=== PATIENT | male | born 1975 | race Caucasian/White ===

== ENCOUNTER 2024-10-28 09:53 | Outpatient (AMB) | payer BC, SELFPAY ==
[2024-10-28 09:58] VITALS: BP 120/80; PULSE 81; BMI 45.2
--- NOTE | 2024-10-28 09:58 | MHC.OFFVIS ---
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 He is a 49-year-old male who has recently gained significant amount of weight as his job has become more sedentary. 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 He said he sleeps poorly. He is fatigued all the time and has daytime somnolence. Has been suggested that he might have sleep apnea although he has not had any workup. However with a lot of increased stress recently he has been noticing some symptoms of shortness of breath associated with retrosternal chest pressure which had do concerned and he has been referred for further cardiology evaluation. He denies any prolonged palpitation irregular heartbeat. Denies any orthopnea, PND, leg edema. He said he is otherwise healthy. He has had no significant other problems. His father had a HI and a stroke in his 60s. [facility] Medical History (Updated 10/28/24 @ 10:31 by Bart Painting MD) Morbid obesity Surgical History H/O knee surgery Family History Father Heart attack Stroke High blood pressure Mother Cancer Social History Alcohol intake: never Patient Tobacco Use Status: Never used Tobacco Review of Systems Const Denies weakness ENT Denies dizziness Card Reports chest pain, Denies chest pain with activity, Denies syncope, Denies rapid heart rate, Denies pedal edema, Denies edema, Denies leg edema, Denies lightheadedness, Denies palpitations, Reports dyspnea, Denies dyspnea on exertion and Denies orthopnea Resp Denies cough, Reports dyspnea and Denies dyspnea on exertion GI Denies hematochezia and Denies change in stool character Musc Denies abnormal gait, Denies muscle cramps, Denies muscle weakness, Denies numbness, Denies radiating pain into limb and Denies tingling Neuro Denies abnormal gait, Denies dizziness, Denies syncope, Denies numbness, Denies tingling and Denies weakness Endo Denies palpitations Physical Exam Vital Signs: Last Vital Signs Pulse 81 10/28/24 09:58 BP 120/80 10/28/24 09:58 BMI result Body Mass Index 45.2 Const General: cooperative, comfortable, no acute distress, alert, awake, Physically active, tired appearing and well groomed Nutritional Appearance: overweight Orientation/consciousness: patient oriented x3 Limitations: no limitations HEENT Head: Yes normocephalic and Yes atraumatic Neck Neck: Yes trachea midline, Yes supple and Yes no JVD Resp Effort & Inspection: normal respiratory effort Auscultation: clear to auscultation bilaterally Cardio Jugular venous distension: no JVD Palpation: normal PMI Rate: regular rate Rhythm: regular rhythm Heart sounds: S1 normal heart sound present, S2 normal heart sound present, no click, no gallops, no murmurs and no rubs GI Auscultation: normal bowel sounds Skin General skin exam: no rashes or lesions noted Neuro General: patient oriented x3 and no focal motor deficits Extrem General: Yes no clubbing, cyanosis or edema Psych Appearance: grossly normal Office Procedures EKG Details: EKG shows normal sinus rhythm with normal EKG [id number], Complete Assessment & Plan Assessment & Plan (1) Chest pain: Code(s): R07.9 - Chest pain, unspecified Category: Medical Plan: Patient with recent onset symptoms of stress-induced chest pain shortness of breath is likely probably related to increased stress although myocardial ischemia needs to be ruled out given his risk factors of obesity and family history. I would strongly recommend him to undergo a treadmill stress test in the near future to evaluate for myocardial ischemia and exercise capacity. This will be scheduled in near future as soon as possible. Also suggest an echocardiogram to evaluate for LV systolic and diastolic function more importantly to evaluate for RV size and systolic function as well as RV systolic pressure that may also contribute to his chest pain syndrome. These tests will be scheduled in near future further treatment based on finding. If these tests are reasonably within normal limits, should pursue coronary calcium score to evaluate for coronary atherosclerosis that will guide treatment for the future. Will obtain blood work from your office. (2) Morbid obesity: Code(s): E66.01 - Morbid (severe) obesity due to excess calories Category: Medical Plan: Patient has developed significant weight gain since his job change to more sedentary job. Recommend strongly to participate in weight loss program that should help him significantly to reduce future cardiovascular and metabolic risk. He understands and agrees. He said he is trying to figure out how to do it. Consider GLP 1 antagonist such as Ozempic or Wegovy (3) Witnessed apneic spells: Code(s): R06.81 - Apnea, not elsewhere classified Plan: Patient with significant likelihood of obstructive sleep apnea, given his body habitus as well as daytime somnolence as well as witnessed apneic episode. Will suggest him to have home sleep study done as soon as possible. Further treatment based on the findings and referrals as possible. Will follow up in the clinic in 6 weeks time, sooner p.r.n.. Thank you for allowing me to partake in his care Coding Level of Care Code New Pt Level 4 (59659) Complex EM visit Add On G2211 Diagnoses Chest pain R07.9 Morbid obesity E66.01 Witnessed apneic spells R06.81 CPT Codes EKG - CPT: 62994-[id number], Complete ([id number])
== END 2024-10-28 10:28 | disposition home or self-care (01) ==
PROVIDERS: PCP Internal Medicine; Visit Provider Internal Medicine Cardiovascular Disease
DX: R07.9 Chest pain, unspecified (principal); E66.01 Morbid (severe) obesity due to excess calories; R06.81 Apnea, not elsewhere classified
CPT/HCPCS: 93010; 99204

== ENCOUNTER → 2024-10-28 09:53 | Outpatient (BNVA) | payer BC, SELFPAY | PROVIDERS: PCP Internal Medicine; Visit Provider Internal Medicine Cardiovascular Disease | DX: R07.89 Other chest pain (principal); E66.01 Morbid (severe) obesity due to excess calories; Z68.42 Body mass index [BMI] 45.0-49.9, adult; R06.81 Apnea, not elsewhere classified | CPT/HCPCS: 93005 ==

== ENCOUNTER → 2024-11-16 08:16 | Outpatient (BNV) | payer OTHER, SELFPAY | DX: I42.2 Other hypertrophic cardiomyopathy (principal); R06.02 Shortness of breath; I49.3 Ventricular premature depolarization | CPT/HCPCS: 93016; 93018; 93320; 93350; 93352 ==

== ENCOUNTER → 2024-12-15 12:57 | Outpatient (REF) | payer OTHER, SELFPAY ==
--- OUTSIDE RECORDS SUMMARY | 2024-12-15 16:01 | XMS_ITS | Encounter Summary ---
Author Organization [facility] Address [address] [place] [address] Care Team Providers Care Relationship Advisor Name Role Phone Magda Rivas MD Primary Care Provider [phone] Reason for Visit * Reason Onset Date Comments Special Procedure 11/20/2024 Encounter Details Date Type Department Care Team (Late st Contact Info) Description 11/20/2024 Telephone Gastroenterology - [facility] [address] [place] [id number] Amy Watson MD [address] [place] [address] Special Procedure Social History Tobacco Use Types Packs/Day Years Used Date Smoking Tobacco: Never Assessed Sex and Gender Information Value Date Recorded Sex Assigned at Not on file Legal Sex Male 11:28 AM EST Gender Identity Not on file Sexual Orientation Not on file documented as of this encounter Progress Notes * Janae Gomez MA - 11/20/2024 1:09 PM EST RESCHEDULED * Smitha Rosas - 11/20/2024 12:16 PM EST Patient calling back to reschedule colonoscopy * Ninoska Maciel MA - 11/20/2024 11:44 AM EST Left message to reschedule * Smitha Rosas - 11/20/2024 9:44 AM EST Patient calling to reschedule colonoscopy due to not being able to do prep. documented in this encounter Plan of Treatment Upcoming Encounters Date Type Department Care Team (Late st Contact Info) Description 03/25/2025 12:[address] [facility] [address] [place] [id number] Amy Watson MD [address] [address] documented as of this encounter Visit Diagnoses Not on filedocumented in this encounter Care Teams Relationship Advisor Relationship Specialty Start Date End Date Magda Rivas MD PCP - General 11/06/23 documented as of this encounter
--- OUTSIDE RECORDS SUMMARY | 2024-12-15 16:02 | XMS_ITS ---
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 Name Role Phone Magda Rivas Primary Care Provider UnavailJoe Bledsoemie Unavailable [phone] Allergies No Known Allergies Results Component Value Reference Range Notes X ray : Foot, right 3V Reviewed date:01/08/2024 01:06:28 PM Interpretation:See Examination above Performing Lab: Notes/Report: See Examination above REASON FOR VISIT pt states last pcp visit 10/2023, Heel pain, Foot pain, Skin Problem, Painful nail(s) aggrevated byshoes causing difficulty standing/walking Medications Medication SIG (Take, Route, Frequency, Duration) Notes Start Date End Date Status Night Splint AFO - L1930 1 wear when at rest for 30 days Active Ciclopirox Olamine 0.77 % 1 application Externally Twice a day for 30 days Active Social History Tobacco Use: Social History Observation Description Date Details (start date - stop date) Never Smoker NA - NA Tobacco Use/Smoking Question Answer Notes Are you a: nonsmoker Alcohol Screen Question Answer Notes Did you have a drink containing alcohol in the p ast year? No Points 0 Interpretation Negative Tobacco use other than smoking: Question Answer Notes Are you an other tobacco user? 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 Problem Mononeuropathy of lower limb (303732757) Neuritis of left foot (G57.92) Active confirmed Vital Signs Height 5 ft 6 in in 01/08/2024 Weight 280 lbs 01/08/2024 BMI 45.19 kg/m2 01/08/2024 Encounters Encounter Location Date Provider Diagnosis [facility] [address] [place] [address] 01/08/2024 Yaritza Cordero Achilles tendinitis of right lower extremity M76.61 ; Pain of right heel M79.671 ; 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 ; Short Achilles tendon (acquired), 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 ; Pain in left foot M79.672 ; Neuritis of left foot G57.92 ; Tinea pedis of both feet B35.3 ; Tinea unguium B35.1 ; Pain in right toe(s) M79.674 and Pain in left toe(s) M79.675 Assessments Encounter Date Diagnosis (ICD Code) Assessment Notes Treatment Notes Treatment Clinical Notes Section Notes 01/08/2024 Achilles tendinitis of right lower extremity (ICD-10 - M76.61) Patient Educated with: HEEL CORD STRETCHES.pdf (HEEL CORD STRETCHES.pdf) Patient Educated with: RICE THERAPY.pdf (RICE THERAPY.pdf) 01/08/2024 Pain of right heel (ICD-10 - M79.671) 01/08/2024 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) 01/08/2024 Short Achilles tendon (acquired), 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) 01/08/2024 Pain in left foot (ICD-10 - M79.672) 01/08/2024 Neuritis of left foot (ICD-10 - G57.92) 01/08/2024 Tinea pedis of both feet (ICD-10 - B35.3) 01/08/2024 Tinea unguium (ICD-10 - B35.1) 01/08/2024 Pain in right toe(s) (ICD-10 - M79.674) 01/08/2024 Pain in left toe(s) (ICD-10 - M79.675) Plan Of Treatment Medication Medication Name Sig Start Date Stop Date Notes Night Splint AFO - L1930 1 wear when at rest for 30 days Ciclopirox Olamine 0.77 % 1 application Externally Twice a day for 30 days Treatment Notes Assessment Notes Achilles tendinitis of right lower extre mity Patient Educated with: HEEL CORD STRETCHES.pdf (HEEL CORD STRETCHES.pdf) Patient Educated with: RICE THERAPY.pdf (RICE THERAPY.pdf) Pending Test Test Name Order Date *Liver Function Test (LFT) 01/08/2024 Next Appt Details Follow Up: 6 Weeks, Reason: Progress Notes * Ruby BURGEROB: [birth year] (48 yo M)Acc No.[id number]:01/08/2024 Progress Notes Patient:?Gamaliel Burger Provider:?Yaritza Cordero DPM :1975???Age:48 Y???Sex:Male Luis e:01/08/2024 Address:[facility] [address], [facility] Pcp:Magda Rivas Subjective: * Chief Complaints: * ???Pt states last pcp visit 10/2023Heel painFoot painSkin ProblemPainful nail(s) aggrevated by shoes causing difficulty standing/walking * HPI: ???Heel pain:?Location:?Back of heel, RIGHT.?Duration:?several months.?Course:?worse.?Aggrevated:?standing, walking, walking first thing in the morning/after rest.?Treatments:?rest/alter normal daily activity.?Foot Pain:?Nature:?, numbness.?Location:?Bottom , B/L.?Duration:?several months.?Onset:?unknown.?Course:?worse.?Aggrevated:?any pressure.?Treatments:?rest/alter normal daily activity.?Skin problems:?Nature:?scaling , redness.?Location:?B/L .?Duration:?several days.?Course:?worse.?Painful Nails:?Pt States Last PCP Visit:?Date:?10/15/2023 * ROS:?General/Constitutional:?Nausea?denies.?Vomiting?denies.?Hunger Thirst?denies.?Loss appetite?denies.?Chills?denies.?Fatigue?denies.?Fever?denies.?Night Sweats?denies.?Unexplained weight loss?denies.?Unexplained weight gain?denies.?HEENTM:?Dentures?denies.?Dizziness?denies.?Glasses/contacts?denies.?Retinopathy?de nies.?Blurred/double vision?denies.?TMJ?denies.?Discharge/drainage?denies.?Implants?denies.?Sore throat?denies.?Dental implants?denies.?Hard of hearing ?denies.?Difficulty chewing/swallowing/speaking?denies.?Nose bleeds?denies.?Sore mouth?denies.?Respiratory:?On Oxygen?denies.?Pneumonia/pleurisy?denies.?Bronchitis?denies.?Emphysema?denies.?C oughing?denies.?Cough blood?denies.?Shortness of breath?denies.?Wheezing?denies.?Cardiovascular:?Pacemaker?denies.?MVP?denies.?WPW?denies.?CHF?denies.?Heart attack?denies.?Septal defect?denies.?Rapid beat?denies.?Chest pain ?denies.?Atrial Fib.?denies.?Murmur/Palpitations?denies.?Gastrointestinal:?Hemorrhoids?denies.?Stomach/Abdominal pain?denies.?Dark blood stool?denies.?Irritable bowel ?denies.?Constipation?denies.?Diarrhea?denies.?Hematology:?Swelling?denies.?Clots?denies.?Varicose Veins?denies.?Bruising?denies.?Bleeding problem?denies.?Genitourinary:?Blood urine?denies.?Frequent/Painfu/urination/bladder control?denies.?Kidney stones?denies.?Infection (UTI)?denies.?Nephropathy?denies.?sex trans dis (STD)?denies.?Prostate?denies.?Musculoskeletal:?Hammertoes?denies.?Bunions?denies.?Back Pain?denies.?Muscle Cramps/ Resting?denies.?Muscle cramps / walking?denies.?Generalized aches and pains?denies.?Weakness?denies.?Integ.:?Ku?denies.?Scars?denies.?Corns/calluses?denies.?Ingrown nails?denies.?Painful nails?denies.?Open Sores?denies.?Rashes?denies.?Neurologic:?Difficulty sleeping?denies.?Brain disorder?denies.?Numbness?denies.?Balance trouble?denies.?Confusion?denies.?Fainting/blackouts?denies.?Tingling?denies.?Tr emors?denies.? * Medical History:? * Surgical History:?knee surge ry, left 1992knee surgery, right 2019 * Hospitalization/Major Diagno stic Procedure:?No Hospitalization History. * Family History:?Mother: rex hernandes.?Father: alive.? * Social History:?Tobacco Use:?Tobacco Use/Smoking?Are you a:?nonsmoker ?Tobacco use other than smoking?Are you an other tobacco user??No ???Drugs/Alcohol:?Drugs?Have you used drugs other than those for medical reasons in the past 12 months??No ?Alcohol Screen?Did you have a drink containing alcohol in the past year??No ?Points?0 ?Interpretation?Negative ???Miscellaneous:?Caffeine: yes, frequency:, more than 4 cups per day. ?no Exercise. ?Marital status: . 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 * Medications:?None * Allergies:?N.K.D.A.yes[Aller gies Verified] Objective: * Vitals:?Ht: 5 ft 6 in, Wt:28 0, BMI:45.19, Shoe size: 9.5, Ht-cm: 167.64 cm, Wt- k.01 kg. * Examination: ???General Examination: ?GENERAL APPEARANCE:?Reveals a pleasant, alert, well nourished, well- developed, well hydrated individual, who demonstrates proper attention to hygiene/body habitus, and is in no acute distress, Pt serves as own historian for office visit today.?ORIENTED:?person, place, and time.?Neurological: ?SENSORY:?Neurological exam reveals intact sensorium, pain sensation normal, vibration sensation intact, pinprick sensation is normal in the lower extremities, Pt denies, anesthesia, burning, paresthesia, tingling, B/L.?TINEL'S COMPRESSION:? Positive, Medial dorsal cutaneous nerve distribution, Intermediate dorsal cutaneous nerve distribution, Left.?DEEP TENDON REFLEXES:?Deferred on symptomatic extremity due to discomfort.?Neuroma Pain: ?PALPATION:?No interspace pain noted on palpation.?Dermatologic: ?SKIN FINDINGS:? Skin shows sign(s) of, erythema, scaling, in a moccasin fashion, no fissure(s) present, B/L.?Orthopedic: ?MUSCLE STRENGTH:?5/5 all groups in a symmetrical fashion, B/L.?GAIT ABNORMALITY:?antalgic.?FOOT MORPHOLOGY:? Decreased Ankle joint dorsiflexion ROM, knee extended.?DIGITAL DEFORMITIES:?Digital contracture, PIPJ, 2-5 B/L, incompl-reducible with WB, or to push-up test, no over, nor underlapping.?Nails: ?NAILS are:?Elongated, overgrown, dystrophic, lytic, greater than 3mm thick, discolored and friable with crumbly malodorous subungual debris, with pain on palpation , 1-5 B/L.?Heel Pain: ?INSPECTION REVEALS:? Pain on palpation to Achilles tendon/bursa with inflammation and swelling present, Pain on palpation to Posterior Superior Aspect Calcaneus, Prominent posterior and posterior/superior heel present, RIGHT.?X-Rays - IMAGING REPORT: ?Clinical Indication(s):? Evaluate for Fracture, Evaluate Biomechanical Deformity , Evaluate Biomechanical Deformity , Evaluate for Fracture.?Views:? 3 views of Foot, LAT, CALC, MO, RIGHT .?Findings:?normal bone and soft tissue density consistent for patients age and sex , positive retro-calcaneal exostosis , increase in soft tissue contour and density at the symptomatic site , radiolucent soft tissue gas absent.?Fracture:?Negative fractures identified , Negative fractures identified.? Assessment: * Assessment: 1.?Pain of right heel - M79. 671?2.?Achilles tendinitis of right lower extremity - M76.61, Acute problem, Complicated w/ Multiple Tx Options(4),Dx New problem, Prognosis Uncertain (4) 3.?Exostosis of right posterior calcaneus - M77.31?4.?Short Achilles tendon (acquired), right ankle - M67.01?5.?Pain in left foot - M79.672?6.?Neuritis of left foot - G57.92, Acute problem, Complicated w/ Multiple Tx Options(4),Dx New problem, Prognosis Uncertain (4)?7.?Tinea pedis of both feet - B35.3, Acute problem, Uncomplicated (3),Rx drug management (4)?8.?Tinea unguium - B35.1?9.?Pain in right toe(s) - M79.674?10.?Pain in left toe(s) - M79.675? Plan: * Treatment: 2.?Achilles tendinitis of ri [facility] lower extremity? Start Night Splint AFO - L1930, 1, wear, when at rest, 30 days, Refills 0.?? Notes: Patient Educated with: HEEL CORD STRETCHES.pdf (HEEL CORD STRETCHES.pdf) Patient Educated with: RICE THERAPY.pdf (RICE THERAPY.pdf)?? 3.?Tinea pedis of both feet? Start Ciclopirox Olamine Cream, 0.77 %, 1 application, Externally, Twice a day, 30 days, 60, Refills 2.?? 4.?Tinea unguium?LAB: *Liver Function Test (LFT) * Procedure Codes:?37558 X-RAY EXAM OF RIGHT FOOT 3V, Modifiers: 26 , RT * Preventive Medicine:? ??Counseling:?Discussion:?-04: Office or other outpatient visit for the evaluation and management of a new patient, which required a medically appropriate history and/or examination and MODERATE level of DECISION MAKING for: 1 OR MORE CHRONIC PROBLEM(S) THATS WORSENING, 2 STABLE CHRONIC PROBLEMS, A NEWLY DIAGNOSED PROBLEM WITH UNCERTAIN PROGNOSIS, AN ACUTE COMPLICATED INJURY WITH MULTIPLE TREATMENT OPTIONS, OR AN ACUTE PROBLEM WITH ACCOMPANYING SYSTEMIC SYMPTOMS, THAT POSE(S) A MODERATE RISK OF MORBIDITY. THIS CONDITION MAY ALSO INCLUDE RX DRUG MANAGEMENT, OR A DECISON FOR MINOR SURGERY. The visit on the day of the encounter encompassed interpreting the data and educating the patient as to the nature of their condition, treatment options available according to their individual PMH, meds, allergies, and overall health/living conditions, as well as any potential risks or complications that may occur from a failure to adhere to, and participate in, the recommended course of therapy. The discussion included a complete verbal, and/or written explanation of the examination results, any x-rays taken, the proposed diagnosis, and outline of the treatment plan. A schedule for future care needs was also explained. The patient verbalized an understanding of the instructions at this time and agreed to be an active participant in their treatment. If the patient should think of any questions or concerns after the visit, I have encouraged the patient to call the office.?Fungal Nail Counseling:?The patient was counseled on the diagnosis, potential etiologies (including, but not limited to, environmental factors, genetic, immune deficiency), and the multiple treatment options for Onychomycosis. We discussed the risks and benefits of each option from performing no treatment, to ultraviolet light shoe treatment, to laser nail treatment, to applying topical antifungals, to taking oral antifungal medication, to surgical removal of the involved nail(s) with or without performing a matricectomy, or any combination thereof. We discussed the advantages and disadvantages of each of possible treatment and importance for adherence to all the recommended therapies for optimum success. This includes the necessity for weekly emery board self nail home debridements, and control the nail and skin environment as much as possible by only using a fresh, dry pair of shoes/socks each day, as well as keeping the skin as dry as possible through the use of sprays/powders if necessary. The patient was instructed to discard the emery board after use to prevent reinfection of the involved nail(s). We discussed the mycological and visual clinical effectiveness of topical vs oral antifungal treatments as well as each ones potential side effects and/or any patient- specific medication interactions. We discussed the reasons behind the important requirement of regular liver function testing with oral antifungal therapy for safety. Patient questions regarding use, dosage, successful outcomes, blood tests, and possible pharmaceutical interactions were reviewed and the patient verbalized that all answers were clearly understood, An LFT was ordered, The Pt prefers PO treatment.?Heel pain:?ACHILLES: I explained to the patient the possible etiologies of Achilles Tendonitis including foot type/shoegear/activity level/exercise routine and the risks/benefits of all the different treatment options for pain including: No treatment at all, Rest, Ice, NSAIDs(only if well tolerated after meals), New/supportive Shoegear, Strappings and Tapings, Stretching exercises, Deep Tissue Massage, Heel cups/cushions, Arch support/shoe inserts, Custom orthoses, Topical analgesics including Aspercream/Voltaren gel, Night splint/AFO Bracing for stiffness, Cast boot with crutches/cane/or walker for assisted ambulation, Physical Therapy, EPAT/ESWT, Interfil injection therapy, as well as surgical Seanor/Calcanectomy- tendon debridement surgical procedures if needed. Recommendations were made to limit barefoot walking, eliminate wearing nonsupportive shoegear (i.e. flip-flops or sandals, or a shoe with an easily bendable, foldable, or twistable sole) and wear shoegear with a good solid sole, a supportive arch, and plenty of room for an insert/orthotic if necessary. If wearing sandals was required by the patient, we recommended orthopedic sandals such as Orthoheel or Birkenstock even while in the home. If the patient wore heels in the past, we recommended they continue, but eliminate the use of flats. The advantages and disadvantages of each option were discussed and the patients' questions re: shoegear, custom vs prefabricated inserts, activity level, PO vs Topical medications (and their respective potential complications/drug interactions/side effects), and consistency in home treatment regimens for optimal success were answered to their verbally confirmed satisfaction. Literature detailing Achilles Tendonitis and the various treatment options were dispensed and reviewed, The Pt. was counseled on the x-rays, treatment options, and the importance of following all homecare instructions.?Neuritis/Neuropathy:?The patient was counseled on the diagnosis, possible etiologies (including mechanical stress, injury, entrapment, chemotherapy, diabetes, vertebral disk herniation if hx), treatment options, and importance for adherence to recommendations in order to address the patients Neuritis/Neuropathy. The advantages and disadvantages re: Accomidative mechanical support/offloading, Topical vs PO analgesics including aspercream/Voltaren gel/Lidoderm patches/Neurontin/Lyrica along with their potential side effects were discussed with the patient to their satisfaction. Also discussed the use of therapeutic injectable cortisone if needed. Surgical treatment, if considered an option, was discussed as well. If surgery is warranted, we discussed the potential successful outcomes as well as the possible complications such as failure, painful scar, permanent tingling/numbness/neuralgea/or intractable pain. Patient questions re: medication use, dosage, and possible side effects and drug interactions were reviewed and the answers to each understood. If the condition worsens, the patient was instructed to contact the office for an appointment. The patient verbally confirmed a full understanding of the above.?Tinea Pedis:?The patient was counseled on the diagnosis, potential etiologies, and treatment options for their skin condition. We discussed the risks and benefits of each option from performing no treatment, to utilizing OTC topical skin creams, prescription topical creams, customized compounded topical medications, and, if necessary, to utilize oral antifungal therapy. We discussed the advantages and disadvantages of each possible treatment and importance for adherence to all the recommended therapies for optimum success and avoid potential complications such as open sore/infection/possible hospitalization. We discussed the potential effectiveness of each topical preparation as well as each ones possible side effects and/or patient medication interactions if oral therapy is selected. Patient questions re: the advantages and disadvantages of each treatment choice, medication use/dosage, successful outcomes, and application consistency were reviewed and the patient verbalized that all answers were clearly understood. The patient was told they can help alleviate symptoms by utilizing moisture absorbant innersoles with activated charcoal and baking soda, applying antifungal sprays daily, aerating toe web spaces at night by putting cotton or lambs wool between the toes, alternating shoe gear daily if possible so they can dry out, changing socks at least once during the day, wearing well-ventilated shoes or sandals. The patient has decided to apply antifungal skin creams to their feet as directed. Rx was sent to their pharmacy at the time of visit.? * Follow Up:?6 Weeks * Images: * Sign off status: Completed true * Provider:?Yaritza Cordero DPM Date:?2023 Generated for Juarez russo/Suzanne/Savannah on:?12/15/2024 04:01 PM EST History and Physical Notes * HPI (History of Present Illness) Category Sub-Category Detail Notes Category Not es Heel pain Duration: several months Location: Back of heel, RIGHT Aggravated: standing, walking, w alking first thing in the morning/after rest Course: worse Treatments: rest/alter normal da pearl activity Painful Nails Pt States Last PCP Visit: Date:: 10/15/2023 Skin problems Nature: scaling , redness Location: B/L Duration: several days Course: worse Foot Pain Nature: , numbness Location: Bottom , B/L Duration: several months Onset: unknown Course: worse Aggravated: any pressure Treatments: rest/alter normal da pearl activity Examination Category Sub-Category Detail Notes Category Not es Neuroma Pain PALPATION: No interspace pain noted on palpation Heel Pain INSPECTION REVEALS: Pain on palp ation to Achilles tendon/bursa with inflammation and swelling present, Pain on palpation to Posterior Superior Aspect Calcaneus, Prominent posterior and posterior/superior heel present, RIGHT Neurological SENSORY: Neurological exa m reveals intact sensorium, pain sensation normal, vibration sensation intact, pinprick sensation is normal in the lower extremities, Pt denies, anesthesia, burning, paresthesia, tingling, B/L TINEL'S COMPRESSION: Positive, Medial do rsal cutaneous nerve distribution, Intermediate dorsal cutaneous nerve distribution, Left DEEP TENDON REFLEXES: Deferred on sympto matic extremity due to discomfort Dermatologic SKIN FINDINGS: Skin shows sign( s) of, erythema, scaling, in a moccasin fashion, no fissure(s) present, B/L Orthopedic GAIT ABNORMALITY: antalgic FOOT MORPHOLOGY: Decreased Ankle join t dorsiflexion ROM, knee extended DIGITAL DEFORMITIES: Digital contracture , PIPJ, 2-5 B/L, incompl-reducible with WB, or to push-up test, no over, nor underlapping MUSCLE STRENGTH: 5/5 all groups in a symmetrical fashion, B/L General Examination GENERAL APPEARANCE: Reveals a pleasant, alert, well nourished, well-developed, well hydrated individual, who demonstrates proper attention to hygiene/body habitus, and is in no acute distress, Pt serves as own historian for office visit today ORIENTED: person, place, and t temo Nails NAILS are: Elongated, overg rown, dystrophic, lytic, greater than 3mm thick, discolored and friable with crumbly malodorous subungual debris, with pain on palpation , 1-5 B/L X-Rays - IMAGING REPORT Findings: normal b one and soft tissue density consistent for patients age and sex , positive retro-calcaneal exostosis , increase in soft tissue contour and density at the symptomatic site , radiolucent soft tissue gas absent Fracture: Negative fractures i dentified , Negative fractures identified Views: 3 views of Foot, LAT , CALC, MO, RIGHT Clinical Indication(s): Evaluate for Fra cture, Evaluate Biomechanical Deformity , Evaluate Biomechanical Deformity , Evaluate for Fracture
--- OUTSIDE RECORDS SUMMARY | 2024-12-15 16:02 | XMS_ITS ---
Author Organization [facility] Gerardo cordova [place] Address [address] [facility] [place] [address] Care Team Providers Care Instrumentation Fitter Name Role Phone Magda Rivas Primary Care Provider Yaritza Zendejas Unavailable [phone] REASON FOR VISIT pt states last pcp visit 10/2023, Heel pain, Foot pain, Skin Problem, Painful nail(s) aggrevated byshoes causing difficulty standing/walking Medications Medication SIG (Take, Route, Frequency, Duration) Notes Start Date End Date Status Ciclopirox Olamine 0.77 % 1 application Externally Twice a day for 30 days Active Night Splint AFO - L1930 1 wear when at rest for 30 days Active Encounters Encounter Location Date Provider Diagnosis [facility] [address] 02/28/2024 Yaritza Cordero Achilles tendinitis of right lower [...] Treatment Notes Treatment Clinical Notes Section Notes 02/28/2024 Achilles tendinitis of right lower extremity (ICD-10 - M76.61) Patient Educated with: HEEL CORD STRETCHES.pdf (HEEL CORD STRETCHES.pdf) Patient Educated with: RICE THERAPY.pdf (RICE THERAPY.pdf) 02/28/2024 Pain of right heel (ICD-10 - M79.671) 02/28/2024 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) 02/28/2024 Short Achilles tendon (acquired), 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) 02/28/2024 Pain in left foot (ICD-10 - M79.672) 02/28/2024 Neuritis of left foot (ICD-10 - G57.92) 02/28/2024 Tinea pedis of both feet (ICD-10 - B35.3) 02/28/2024 Tinea unguium (ICD-10 - B35.1) 02/28/2024 Pain in right toe(s) (ICD-10 - M79.674) 02/28/2024 Pain in left toe(s) (ICD-10 - M79.675) Plan Of Treatment Medication Medication Name Sig Start Date Stop Date Notes Ciclopirox Olamine 0.77 % 1 application Externally Twice a day for 30 days Night Splint AFO - L1930 1 wear when at rest for 30 days Treatment Notes Assessment Notes Achilles tendinitis of right lower extre mity Patient Educated with: HEEL CORD STRETCHES.pdf (HEEL CORD STRETCHES.pdf) Patient Educated with: RICE THERAPY.pdf (RICE THERAPY.pdf) Next Appt Details Follow Up: 6 Weeks, Reason: Progress Notes * TAO MasonoDOB: [birth year] (49 yo M)Acc No.[id number]:02/28/2024 Progress Notes Patient:?TAO Gamaliel Provider:?Yaritza Cordero DPM :1975???Age:48 Y???Sex:Male Luis e:02/28/2024 Address:[address], [facility] [id number] Pcp:Magda Rivas Subjective: * Chief Complaints: * ???1. Pt states last pcp vis it 10/2023. 2. Heel pain. 3. Foot pain. 4. Skin Problem. 5. Painful nail(s) aggrevated by shoes causing difficulty standing/walking. * HPI: ???Heel pain:?Location:?Back of heel, RIGHT.?Duration:?several months.?Course:?worse.?Aggravated:?standing, walking, walking first thing in the morning/after rest.?Treatments:?rest/alter normal daily activity.?Foot Pain:?Nature:?, numbness.?Location:?Bottom , B/L.?Duration:?several months.?Onset:?unknown.?Course:?worse.?Aggravated:?any pressure.?Treatments:?rest/alter normal daily activity.?Skin problems:?Nature:?scaling , redness.?Location:?B/L .?Duration:?several days.?Course:?worse.?Treatments:?Medication (Ciclopirox Olamine 0.77 Cream).?Painful Nails:?Pt States Last PCP Visit:?Date:?10/15/2023 * ROS:?General/Constitutional:?Nausea?denies.?Vomiting?denies.?Hunger [...] disorder?denies.?Numbness?denies.?Balance trouble?denies.?Confusion?denies.?Fainting/blackouts?denies.?Tingling?denies.?Tr emors?denies.? * Medical History:? * Medications:?Taking Night Sp lint AFO - L1930 1 wear when at rest , Taking Ciclopirox Olamine 0.77 % Cream 1 application Externally Twice a day Objective: * Vitals:? * Examination: ???General Examination: ?GENERAL APPEARANCE:?Reveals a [...] 3 views of Foot, LAT, CALC, MO, RIGHT.?Findings:?normal bone and soft tissue density consistent for patients age and sex , positive retro-calcaneal exostosis , increase in soft tissue contour and density at the symptomatic site , radiolucent soft tissue gas absent.?Fracture:?Negative fractures identified , Negative fractures identified.? Assessment: * Assessment: 1.?[facility]chilles tendinitis of [facility] - M76.61???Specify :Acute problem, Complicated w/ Multiple Tx Options(4),Dx New problem, Prognosis Uncertain (4)???2.?Pain of right heel - M79.671???3.?Exostosis of right posterior calcaneus - M77.31???4.?Short Achilles tendon (acquired), right ankle - M67.01???5.?Pain in left foot - M79.672???6.?Neuritis of left foot - G57.92???Specify :Acute problem, Complicated w/ Multiple Tx Options(4),Dx New problem, Prognosis Uncertain (4)???7.?Tinea pedis of both feet - B35.3???Specify :Acute problem, Uncomplicated (3),Rx drug management (4)???8.?Tinea unguium - B35.1???9.?Pain in right toe(s) - M79.674???10.?Pain in left toe(s) - M79.675??? Plan: * Treatment: 2.?Tinea pedis of both feet? Start Ciclopirox Olamine Cream, 0.77 %, 1 application, Externally, Twice a day, 30 days, 60, Refills 2.?? * Procedure Codes:?24468 X-RAY EXAM OF RIGHT FOOT 3V, Modifiers: 26 , RT * Follow Up:?6 Weeks * Images: * The named appointment provid er may or may not be the originator of this progress note, and it is not deemed complete until electronically signed by the appointment provider. Sign off status: Pending * Provider:Brad Cordero DPM Date:?2023 Generated for Juarez russo/Suzanne/[place]annah on:?12/15/2024 04:02 PM EST History and Physical Notes * [...] Location: B/L Duration: several days Course: worse Treatments: Medication (Ciclopir ox Olamine 0.77 Cream) Foot Pain Nature: , numbness Location: Bottom [...]
--- OUTSIDE RECORDS SUMMARY | 2024-12-15 16:02 | XMS_ITS ---
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 119 Referring Provider First Name AUTUMN Referring Provider Last Name FORREST Referring Provider Speciality Internal M edicine Referred Provider Specialty Rheumatology General Notes Poonam Tavares 09/01/2024 02:32:25 PM > Referral with attachment faxed, pt given information to call and schedule visit. [facility] [place] p: [phone] f: [phone] Clinical Notes Mercy Wilson 02:24:53 PM > refaxSteve catalan Redena 10/29/2024 01:58:06 PM > Scheduled for 02/16 at 8:15 am. Pt aware Referral Priority Routine REASON FOR VISIT Pt seen in office for f/u visit. Pt received TDAP vaccine given in right arm and flu vaccine given in left arm , pt tolerated well with no interactions and discharged in stable condition. MEDICATIONS Medication SIG (Take, Route, Frequency, Duration) Notes Start Date End Date Status Zepbound 2.5 MG/0.5ML 2.5 mg weekly Subc utaneous Weekly for 30 days Not-Taking Wegovy 0.5 MG/0.5ML 0.5mg Subcutaneous w eekly for 30 days 09/01/2024 Active Contrave 8-90 MG Week 1, take 1 table t in the morning Week 2 take 1 tablet in the morning, 1 tablet in the evening Week 3 take 2 tablets in the morning, 1 tablet in the evening Week 4 onward 2 tablets in the morning, 2 tablets in the evening Orally twice a day for 30 days 04/06/2024 Not-Taking Wegovy 0.25 MG/0.5ML 0.25mg Subcutaneous weekly for 30 days Active IMMUNIZATIONS Vaccine Route Administration Date Status Comme nts influenza IM Intramuscular 09/01/2024 Administered Tdap IM Intramuscular 09/01/2024 Administered SOCIAL HISTORY Tobacco Use: Social History Observation Description Date Details (start date - stop date) Never Smoker NA - NA Sex Assigned At : Social History Observation Description Sex Assigned At Unknown Tobacco Use/Smoking Question Answer Notes Are you a nonsmoker VITAL SIGNS Heart Rate 82 /min 09/01/2024 Blood pressure systolic 130 mm Hg 09/01/20 24 Blood pressure diastolic 82 mm Hg 024 Weight 284 lbs 09/01/2024 BMI 47.25 kg/m2 09/01/2024 Height 65 in 09/01/2024 Oximetry 97 % 09/01/2024 Encounters Encounter Location Date Provider Diagnosis [facility] [address] [address] 09/01/2024 AUTUMN CLAYTON Morbid obesity E66.0 1 ; Body mass index [BMI]40.0-44.9, adult Z68.41 ; Erectile dysfunction, unspecified erectile dysfunction type N52.9 ; SONJA (obstructive sleep apnea) G47.33 ; Other chest pain R07.89 ; Arthralgia of multiple joints M25.50 ; SERNA (dyspnea on exertion) R06.09 and Encounter for immunization Z23 ASSESSMENTS Encounter Date Diagnosis Assessment Notes Treatment Notes Treatment Clinical Notes Section Notes 09/01/2024 Morbid obesity (ICD-10 - E66.01) Acute Concerns/Problem List: 09/01/2024 DCF paperwork was filled out today We have given him a starter pack of Wegovy 0.25 mg Tdap today Flu shot today Scheduled to see cardiology early October as well as gastroenterology next month For stress testing as well as colonoscopy Will refer to rheumatology at [facility] _update labs and CPE Total time spent today was 30 minutes of which greater than 50% was spent on coordinating and counseling We are a board certified obesity and weight management practice Patient has trialed behavioral modification, dietary restrictions and exercise for a minimum of 3 months Patient counseled regarding effects of GLP/GIP-1 agonists, and other FDA approved wgt loss meds with regards to a multifactorial approach of weight loss as mentioned above and not solely appetite suppression. Patient has been found to be obese with a BMI of (46). Patient has class 3 obesity. Of note, some information is being carried forward from prior records for informational purposes only and is being cited so that efficiency, safety and quality of the patient's care is not compromised This note was prepared using voice recognition software and direct typing Please excuse inadvertent bottom stop attacher or typing errors, or uncorrected word substitutions Although every attempt has been made by the provider to proofread this document, occasional misspellings and typographical errors may still be present Due to the previous pandemic, and the use of personal protective equipment (PPE) This may decrease voice recognition accuracy Inadvertent bottom stop attacher errors may occur 09/01/2024 Body mass index [BMI]40.0-44.9, adult (ICD-10 - Z68.41) Acute Concerns/Problem List: 09/01/2024 DCF paperwork was filled out today We have given him a starter pack of Wegovy 0.25 mg Tdap today Flu shot today Scheduled to see cardiology early October as well as gastroenterology next month For stress testing as well as colonoscopy Will refer to rheumatology at [facility] _update labs and CPE Total time spent today was 30 minutes of which greater than 50% was spent on coordinating and counseling We are a board certified obesity and weight management practice Patient has trialed behavioral modification, dietary restrictions and exercise for a minimum of 3 months Patient counseled regarding effects of GLP/GIP-1 agonists, and other FDA approved wgt loss meds with regards to a multifactorial approach of weight loss as mentioned above and not solely appetite suppression. Patient has been found to be obese with a BMI of (46). Patient has class 3 obesity. Of note, some information is being carried forward from prior records for informational purposes only and is being cited so that efficiency, safety and quality of the patient's care is not compromised This note was prepared using voice recognition software and direct typing Please excuse inadvertent bottom stop attacher or typing errors, or uncorrected word substitutions Although every attempt has been made by the provider to proofread this document, occasional misspellings and typographical errors may still be present Due to the previous pandemic, and the use of personal protective equipment (PPE) This may decrease voice recognition accuracy Inadvertent bottom stop attacher errors may occur 09/01/2024 Erectile dysfunction, unspecified erectile dysfunction type (ICD-10 - N52.9) Acute Concerns/Problem List: 09/01/2024 DCF paperwork was filled out today We have given him a starter pack of Wegovy 0.25 mg Tdap today Flu shot today Scheduled to see cardiology early October as well as gastroenterology next month For stress testing as well as colonoscopy Will refer to rheumatology at [facility] _update labs and CPE Total time spent today was 30 minutes of which greater than 50% was spent on coordinating and counseling We are a board certified obesity and weight management practice Patient has trialed behavioral modification, dietary restrictions and exercise for a minimum of 3 months Patient counseled regarding effects of GLP/GIP-1 agonists, and other FDA approved wgt loss meds with regards to a multifactorial approach of weight loss as mentioned above and not solely appetite suppression. Patient has been found to be obese with a BMI of (46). Patient has class 3 obesity. Of note, some information is being carried forward from prior records for informational purposes only and is being cited so that efficiency, safety and quality of the patient's care is not compromised This note was prepared using voice recognition software and direct typing Please excuse inadvertent bottom stop attacher or typing errors, or uncorrected word substitutions Although every attempt has been made by the provider to proofread this document, occasional misspellings and typographical errors may still be present Due to the previous pandemic, and the use of personal protective equipment (PPE) This may decrease voice recognition accuracy Inadvertent bottom stop attacher errors may occur 09/01/2024 SONJA (obstructive sleep apnea) (ICD-10 - G47.33) Acute Concerns/Problem List: 09/01/2024 DCF paperwork was filled out today We have given him a starter pack of Wegovy 0.25 mg Tdap today Flu shot today Scheduled to see cardiology early October as well as gastroenterology next month For stress testing as well as colonoscopy Will refer to rheumatology at [facility] _update labs and CPE Total time spent today was 30 minutes of which greater than 50% was spent on coordinating and counseling We are a board certified obesity and weight management practice Patient has trialed behavioral modification, dietary restrictions and exercise for a minimum of 3 months Patient counseled regarding effects of GLP/GIP-1 agonists, and other FDA approved wgt loss meds with regards to a multifactorial approach of weight loss as mentioned above and not solely appetite suppression. Patient has been found to be obese with a BMI of (46). Patient has class 3 obesity. Of note, some information is being carried forward from prior records for informational purposes only and is being cited so that efficiency, safety and quality of the patient's care is not compromised This note was prepared using voice recognition software and direct typing Please excuse inadvertent bottom stop attacher or typing errors, or uncorrected word substitutions Although every attempt has been made by the provider to proofread this document, occasional misspellings and typographical errors may still be present Due to the previous pandemic, and the use of personal protective equipment (PPE) This may decrease voice recognition accuracy Inadvertent bottom stop attacher errors may occur 09/01/2024 Other chest pain (ICD-10 - R07.89) Acute Concerns/Problem List: 09/01/2024 DCF paperwork was filled out today We have given him a starter pack of Wegovy 0.25 mg Tdap today Flu shot today Scheduled to see cardiology early October as well as gastroenterology next month For stress testing as well as colonoscopy Will refer to rheumatology at [facility] _update labs and CPE Total time spent today was 30 minutes of which greater than 50% was spent on coordinating and counseling We are a board certified obesity and weight management practice Patient has trialed behavioral modification, dietary restrictions and exercise for a minimum of 3 months Patient counseled regarding effects of GLP/GIP-1 agonists, and other FDA approved wgt loss meds with regards to a multifactorial approach of weight loss as mentioned above and not solely appetite suppression. Patient has been found to be obese with a BMI of (46). Patient has class 3 obesity. Of note, some information is being carried forward from prior records for informational purposes only and is being cited so that efficiency, safety and quality of the patient's care is not compromised This note was prepared using voice recognition software and direct typing Please excuse inadvertent bottom stop attacher or typing errors, or uncorrected word substitutions Although every attempt has been made by the provider to proofread this document, occasional misspellings and typographical errors may still be present Due to the previous pandemic, and the use of personal protective equipment (PPE) This may decrease voice recognition accuracy Inadvertent bottom stop attacher errors may occur 09/01/2024 Arthralgia of multiple joints (ICD-10 - M25.50) Acute Concerns/Problem List: 09/01/2024 DCF paperwork was filled out today We have given him a starter pack of Wegovy 0.25 mg Tdap today Flu shot today Scheduled to see cardiology early October as well as gastroenterology next month For stress testing as well as colonoscopy Will refer to rheumatology at [facility] _update labs and CPE Total time spent today was 30 minutes of which greater than 50% was spent on coordinating and counseling We are a board certified obesity and weight management practice Patient has trialed behavioral modification, dietary restrictions and exercise for a minimum of 3 months Patient counseled regarding effects of GLP/GIP-1 agonists, and other FDA approved wgt loss meds with regards to a multifactorial approach of weight loss as mentioned above and not solely appetite suppression. Patient has been found to be obese with a BMI of (46). Patient has class 3 obesity. Of note, some information is being carried forward from prior records for informational purposes only and is being cited so that efficiency, safety and quality of the patient's care is not compromised This note was prepared using voice recognition software and direct typing Please excuse inadvertent bottom stop attacher or typing errors, or uncorrected word substitutions Although every attempt has been made by the provider to proofread this document, occasional misspellings and typographical errors may still be present Due to the previous pandemic, and the use of personal protective equipment (PPE) This may decrease voice recognition accuracy Inadvertent bottom stop attacher errors may occur 09/01/2024 SERNA (dyspnea on exertion) (ICD-10 - R06.09) Acute Concerns/Problem List: 09/01/2024 DCF paperwork was filled out today We have given him a starter pack of Wegovy 0.25 mg Tdap today Flu shot today Scheduled to see cardiology early October as well as gastroenterology next month For stress testing as well as colonoscopy Will refer to rheumatology at [facility] _update labs and CPE Total time spent today was 30 minutes of which greater than 50% was spent on coordinating and counseling We are a board certified obesity and weight management practice Patient has trialed behavioral modification, dietary restrictions and exercise for a minimum of 3 months Patient counseled regarding effects of GLP/GIP-1 agonists, and other FDA approved wgt loss meds with regards to a multifactorial approach of weight loss as mentioned above and not solely appetite suppression. Patient has been found to be obese with a BMI of (46). Patient has class 3 obesity. Of note, some information is being carried forward from prior records for informational purposes only and is being cited so that efficiency, safety and quality of the patient's care is not compromised This note was prepared using voice recognition software and direct typing Please excuse inadvertent bottom stop attacher or typing errors, or uncorrected word substitutions Although every attempt has been made by the provider to proofread this document, occasional misspellings and typographical errors may still be present Due to the previous pandemic, and the use of personal protective equipment (PPE) This may decrease voice recognition accuracy Inadvertent bottom stop attacher errors may occur 09/01/2024 Encounter for immunization (ICD-10 - Z23) Acute Concerns/Problem List: 09/01/2024 DCF paperwork was filled out today We have given him a starter pack of Wegovy 0.25 mg Tdap today Flu shot today Scheduled to see cardiology early October as well as gastroenterology next month For stress testing as well as colonoscopy Will refer to rheumatology at [facility] _update labs and CPE Total time spent today was 30 minutes of which greater than 50% was spent on coordinating and counseling We are a board certified obesity and weight management practice Patient has trialed behavioral modification, dietary restrictions and exercise for a minimum of 3 months Patient counseled regarding effects of GLP/GIP-1 agonists, and other FDA approved wgt loss meds with regards to a multifactorial approach of weight loss as mentioned above and not solely appetite suppression. Patient has been found to be obese with a BMI of (46). Patient has class 3 obesity. Of note, some information is being carried forward from prior records for informational purposes only and is being cited so that efficiency, safety and quality of the patient's care is not compromised This note was prepared using voice recognition software and direct typing Please excuse inadvertent bottom stop attacher or typing errors, or uncorrected word substitutions Although every attempt has been made by the provider to proofread this document, occasional misspellings and typographical errors may still be present Due to the previous pandemic, and the use of personal protective equipment (PPE) This may decrease voice recognition accuracy Inadvertent bottom stop attacher errors may occur PLAN OF TREATMENT Medication Medication Name Sig Start Date Stop Date Notes Wegovy 0.5 MG/0.5ML 0.5mg Subcutaneous weekly for 30 days 09/01/2024 Wegovy 0.25 MG/0.5ML 0.25mg Subcutaneous weekly for 30 days Pending Test Test Name Order Date PSA, SCREEN 09/01/2024 LIPID PANEL, STANDARD 09/01/2024 COMPREHENSIVE METABOLIC PANEL 09/01/2024 CBC (INCLUDES DIFF/PLT) 09/01/2024 URINALYSIS, COMPLETE 09/01/2024 HEMOGLOBIN A1c 09/01/2024 TSH 09/01/2024 VITAMIN D,25-OH,TOTAL,IA 09/01/2024 Referrals Referral Date Details [facility] Progress Notes * TAOMasonAlysaOB: [birth year] (48 yo M)Acc No.[id number]:09/01/2024 Progress Notes Patient:??TAO Gamaliel Provider:??AUTUMN CLAYTON NP :1975?Age:48 Y?Sex:Ma le Date:09/01/2024 Address:[facility] [address], [facility] Subjective: * Chief Complaints: * ?1. Pt seen in office f or f/u visit. Pt received TDAP vaccine given in right arm and flu vaccine given in left arm , pt tolerated well with no interactions and discharged in stable condition.. * HPI: ?Constitutional:? Patient is here for Chronic Disease Management follow-up visit ?Full past medical history, social history, family history, ?allergies and current medications were reviewed and updated. 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 Lots of stress in life. ?Denies more instances of the chest pain/pressure/diaphoresis. ?He now has an appointment with gastroenterology for colorectal screening September 21 ?He also has a cardiac stress test nuclear medicine stress test scheduled for October 2023 ? finally with [facility] ?There is a paternal history of CAD with [place] ?Still awaiting rheumatology evaluation ?He reports generalized body aches and myalgias and arthralgias ? I have pain everywhere , I feel like a 80-year-old man ?needs sleep study, SONJA/OHS, ?He was contacted by them however he had to reschedule this is still pending* ?Was taking Sidenafil from [facility] for ED. No longer is working. ?Contributes this to weight and stress. 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 martha refer ?TDAP 08/2024 in office. * ROS:?All Other Systems:?Review of Systems (ROS)??All others negative except those mentioned in HPI.? * Medical History:??Obesity. * Surgical History:??Denies Pa st Surgical History. * Hospitalization/Major Diagno stic Procedure:??Denies Past Hospitalization. * Family History:??Father: ali ve, heart issues.??Mother: alive, breast cancer.??2 sister(s) . 2 daughter(s) - healthy. .?? 1 siter uncontrolled hypertension / thyroid issues. * Social History:?Tobacco Use:??Tobacco Use/Smoking??Are you a??nonsmoker.?? * Medications:??Not-Taking Zep bound 2.5 MG/0.5ML Solution Auto-injector 2.5 mg weekly Subcutaneous Weekly , Not-Taking Wegovy 0.25 MG/0.5ML Solution Auto-injector 0.25mg Subcutaneous weekly , Not-Taking Contrave 8-90 MG Tablet Extended Release 12 Hour Week 1, take 1 tablet in the morning Week 2 take 1 tablet in the morning, 1 tablet in the evening Week 3 take 2 tablets in the morning, 1 tablet in the evening Week 4 onward 2 tablets in the morning, 2 tablets in the evening Orally twice a day , Medication List reviewed and reconciled with the patient * Allergies:??N.K.D.A. Objective: * Vitals:??HR:82/min, BP:130/8 2mm Hg, Wt:284lbs, BMI:47.25Index, Ht: 65 in, Oxygen sat %:97%. * Examination: ?General Examination: ?GENERAL APPEARANCE:??in no acute distress, well developed, well nourished.??HEAD:??normocephalic, atraumatic.??EYES:??pupils equal, round, reactive to light and accommodation.??EARS:??normal.??ORAL CAVITY:??mucosa moist.??THROAT:??clear.??NECK/THYROID:??neck supple, full range of motion, no cervical lymphadenopathy.??SKIN:??no suspicious lesions, warm and dry.??HEART:??no murmurs, regular rate and rhythm, S1, S2 normal.??LUNGS:??clear to auscultation bilaterally.??ABDOMEN:??normal, bowel sounds present, soft, nontender, nondistended.??EXTREMITIES:??no clubbing, cyanosis, or edema.??NEUROLOGIC:??nonfocal, motor strength normal upper and lower extremities, sensory exam intact.? Assessment: * Assessment: 1.??Morbid obesity - E66.01? ?2.??Body mass index [BMI]40.0-44.9, adult - Z68.41??3.??Erectile dysfunction, unspecified erectile dysfunction type - N52.9??4.??SONJA (obstructive sleep apnea) - G47.33??5.??Other chest pain - R07.89??6.??Arthralgia of multiple joints - M25.50??7.??SERNA (dyspnea on exertion) - R06.09??8.??Encounter for immunization - Z23?? Acute Concerns/Problem List: 09/01/2024 DCF paperwork was filled out today We have given him a starter pack of Wegovy 0.25 mg Tdap today Flu shot today Scheduled to see cardiology early October as well as gastroenterology next month For stress testing as well as colonoscopy Will refer to rheumatology at [facility] _update labs and CPE Total time spent today was 30 minutes of which greater than 50% was spent on coordinating and counseling We are a board certified obesity and weight management practice Patient has trialed behavioral modification, dietary restrictions and exercise for a minimum of 3 months Patient counseled regarding effects of GLP/GIP-1 agonists, and other FDA approved wgt loss meds with regards to a multifactorial approach of weight loss as mentioned above and not solely appetite suppression. Patient has been found to be obese with a BMI of (46). Patient has class 3 obesity. Of note, some information is being carried forward from prior records for informational purposes only and is being cited so that efficiency, safety and quality of the patient's care is not compromised This note was prepared using voice recognition software and direct typing Please excuse inadvertent bottom stop attacher or typing errors, or uncorrected word substitutions Although every attempt has been made by the provider to proofread this document, occasional misspellings and typographical errors may still be present Due to the previous pandemic, and the use of personal protective equipment (PPE) This may decrease voice recognition accuracy Inadvertent bottom stop attacher errors may occur. Plan: * Treatment: 2.??Arthralgia of multiple j oints? Referral To:Rheumatology ?Reason:[facility], Dr. Alvarado 3.??Others?? Start Wegovy Solution Auto-injector, 0.5 MG/0.5ML, 0.5mg, Subcutaneous, weekly, 30 days, 4 Pen Needle, Refills 1.? * Immunizations:? influenza : 0.5 mL (Dose No:1) (Route: Intramuscular) given by Vy Gallagher on Left Deltoid (Encounter for immunization)? Tdap : 0.5 mL (Dose No:1) (Route: Intramuscular) given by Vy Gallagher on Right Deltoid (Encounter for immunization) * Labs:?? * ?Lab: HEMOGLOBIN A1 c ?Lab: VITAMIN D,25- OH,TOTAL,IA ?Lab: URINALYSIS, C OMPLETE ?Lab: COMPREHENSIVE METABOLIC PANEL ?Lab: CBC (INCLUDES DIFF/PLT) ?Lab: PSA, SCREEN ?Lab: TSH ?Lab: LIPID PANEL, STANDARD * Procedure Codes:??87565 FLU VAC NO PRSV 4 POWER 3 YRS, 67545 TDAP VACCINE >7 IM * Images: Billing Information: * Visit Code:?? 51347 Office Visit, Est Pt., Level 4. * Procedure Codes:?? 12233 FLU VAC NO PRSV 4 POWER 3 YRS. 84770 TDAP VACCINE >7 IM. Care Plan Details* * Sign off status: Completed true * Provider:??AUTUMN CLAYTON NP Date:??08/14 History and Physical Notes * HPI (History of Present Illness) Category Sub-Category Detail Notes Category Not es Constitutional Patient is here for Chronic Disease Management follow-up visit Full past medical history, social history, family history, allergies and current medications were reviewed and updated. 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 Lots of stress in life. Denies more instances of the chest pain/pressure/diaphoresis. He now has an appointment with gastroenterology for colorectal screening September 21 He also has a cardiac stress test nuclear medicine stress test scheduled for October 2023 finally with [facility] There is a paternal history of CAD with [place] Still awaiting rheumatology evaluation He reports generalized body aches and myalgias and arthralgias I have pain everywhere , I feel like a 80-year-old man needs sleep study, [facility], He was contacted by them however he had to reschedule this is still pending* Was taking Sidenafil from [facility] for ED. No longer is working. Contributes this to weight and stress. 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 martha refer TDAP 08/2024 in office Examination Category Sub-Category Detail Notes Category Not es General Examination GENERAL APPEARANCE: in no ac jorge distress, well developed, well nourished HEAD: normocephalic, atrau matic EYES: pupils equal, round, reactive to light and accommodation EARS: normal THROAT: clear NECK/THYROID: neck supple, full ra nge of motion, no cervical lymphadenopathy HEART: no murmurs, regular rate and rhythm, S1, S2 normal LUNGS: clear to auscultatio n bilaterally ABDOMEN: normal, bowel sounds present, soft, nontender, nondistended NEUROLOGIC: nonfocal, motor stre ngth normal upper and lower extremities, sensory exam intact SKIN: no suspicious lesion s, warm and dry EXTREMITIES: no clubbing, cyanosi s, or edema ORAL CAVITY: mucosa moist Consultation Request Notes Referral Date Referring Provider Referred Provider Not es 09/01/2024 AUTUMN CLAYTON , [facility]
--- OUTSIDE RECORDS SUMMARY | 2024-12-15 16:02 | XMS_ITS ---
Author Organization [email or web address] Address [address] [place] [address] Care Team Providers Care Cut Roll Machine Operator Name Role Phone ETHEL IVERSON Unavailable [phone] AUTUMN CLAYTON Unavailable [phone] Encounters Encounter Location Date [facility] [address] [place] [address] 10/15/2024 AUTUMN CLAYTON PLAN OF TREATMENT No Information Progress Notes * Ruby BURGEROB: [birth year] (49 yo M)Acc No.[id number]:10/15/2024 CPE Patient:??Gamaliel BURGER Provider:??AUTUMN CLAYTON NP :1975?Age:49 Y?Sex:Ma le Date:10/15/2024 Address:[address], [facility] Subjective: * Chief Complaints: * ? * Medical History:?? Objective: Assessment: Plan: * Treatment: * Images: Billing Information: * Visit Code:?? * Procedure Codes:?? Care Plan Details* * Sign off status: Pending * Provider:??AUTUMN CLAYTON NP Date:??11/2024
--- OUTSIDE RECORDS SUMMARY | 2024-12-15 16:02 | XMS_ITS ---
Author Organization [facility] Address [address] [facility] [place] [address] Care Team Providers Care Loan Reviewer Name Role Phone Magda Rivas Primary Care Provider UnavailYaritza Bledsoe [phone] REASON FOR VISIT NS todays 02/28/24 Encounters Encounter Location Date Provider Diagnosis [address] [place] [address] 02/28/2024 Yaritza Cordero Plan Of Treatment No Information Progress Notes * Ruby BURGEROB: [birth year] (48 yo M)Acc No.[id number]:02/28/2024 Patient:?Gamaliel Burger :1975???Age:48 Y???Sex:Male Address:[address], [place] [address] * true * Date:? Generated for Juarez russo/Suzanne/eTransmitting on:?12/15/2024 04:02 PM EST
--- OUTSIDE RECORDS SUMMARY | 2024-12-15 16:02 | XMS_ITS ---
Author Organization [facility] Address [address] [place] [address] Care Team Providers Care Legal Support Manager Name Role Phone ETHEL IVERSON Unavailable [phone] REASON FOR REFERRAL Reason [facility] Diagnosis 1 Encounter for screen ing for malignant neoplasm of colon (Z12.11) Referral Organization [facility] Referring Provider First Name ETHEL Referring Provider Last Name ZAYRA Referring Provider Speciality Internal M edicine Referred Provider Specialty Gastroentero logy General Notes CADE WHITLOCK 07/07 11:26:35 AM >faxed referral with office notes to [facility] - p: [phone] f: [phone], [facility] 08/21/2024 01:42:23 PM > I called the office, and they informed me that they have reached out to the patient three times and even sent a letter but have not received any response. Referral Priority Routine Reason [facility] Diagnosis 1 Other chest pain (R0 7.89) Diagnosis 2 Other forms of dyspn ea (R06.09) Referral Organization [facility] Referring Provider First Name ETHEL Referring Provider Last Name ZAYRA Referring Provider Speciality Internal M edicine Referred Provider Specialty Cardiology General Notes CADE WHITLOCK 07/07 11:29:28 AM > faxed referral to [facility] p: [phone] f: [phone] Clinical Notes [facility] 10/2023 03:01:20 PM > Scheduled for 10/28/2024 at 10 am Referral Priority Routine REASON FOR VISIT referral Encounters Encounter Location Date Provider Diagnosis [facility] [address] [facility] [address] [place] [address] 07/07/2024 ETHEL IVERSON PLAN OF TREATMENT Referrals Referral Date Details [facility] Progress Notes * Mason BURGERAlysaOB: [birth year] (48 yo M)Acc No.[id number]:07/07/2024 Patient:??Gamaliel BURGER :1975?Age:48 Y?Sex:Tj mahmood Address:[facility] [address] , [place] [address] Subjective: * Chief Complaints: * ?Referral * Medical History:?? * Surgical History:?? * Hospitalization/Major Diagno stic Procedure:?? * Medications:?? Objective: Assessment: Plan: * Treatment: * Procedure Codes:?? * true * Date:?? Consultation Request Notes Referral Date Referring Provider Referred Provider Not es 07/07/2024 ETHEL IVERSON [facility] 07/07/2024 ETHEL IVERSON [facility]
--- OUTSIDE RECORDS SUMMARY | 2024-12-15 16:02 | XMS_ITS | Clinical Summary ---
Author Organization [facility] Address [address] [place] [address] Phone Care Team Providers Care Bedspread Folder Name Role Phone Magda Rivas MD Primary Care Provider [phone] Allergies No known active allergies Medications bisacodyL (DULCOLAX) 5 mg EC tablet Take 2 tablets by mouth right before beginning bowel prep. See instructions provided by the office 2 tablet 4 Active polyethylene glycol (Golytely) 236-22.74-6.74 -5.86 gram solution Take 4L by mouth once for one dose. May substitue any PEG. Starting at 6PM the night before your procedure drink 1 8oz glasses at your own pace until you complete half of the gallon. Finish 2nd half of the gallon 5 hours before your procedure. 4000 mL 4 Active semaglutide (Wegovy) 0.5 mg/0.5 mL injection pen Inject under the skin every 7 (seven) days. Active polyethylene glycol (Golytely) 236-22.74-6.74 -5.86 gram solution Take 4L by mouth once for one dose. May substitue any PEG. Starting at 6PM the night before your procedure drink 1 8oz glasses at your own pace until you complete half of the gallon. Finish 2nd half of the gallon 5 hours before your procedure. 4000 mL 5 Active bisacodyL (DULCOLAX) 5 mg EC tablet Take 2 tablets by mouth right before beginning bowel prep. See instructions provided by the office 2 tablet 5 Active Encounters Date Type Department Care Team Description 11/20/2024 Telephone Gastroenterology - [place] [address] [facility] [address] [phone] Amy Watson MD Special Procedure 09/21/2024 Telephone Gastroenterology [facility] [address] [facility] [address] [phone] Amy Watson MD Special Procedure from Last 3 Months Social History Tobacco Use Types Packs/Day Years Used Date Smoking Tobacco: Never Assessed Sex and Gender Information Value Date Recorded Sex Assigned at Not on file Legal Sex Male 11:28 AM EST Gender Identity Not on file Sexual Orientation Not on file Last Filed Vital Signs Vital Sign Reading Time Taken Comments Blood Pressure 115/72 11/17/2023 9:51 AM EST Pulse 68 11/17/2023 9:51 AM EST Temperature - - Respiratory Rate - - Oxygen Saturation - - Inhaled Oxygen Concentration - - Weight 128 kg (283 lb) 11/12/2024 3:00 PM EST Height 169.5 cm (5' 6.75 ) 11/12/2024 3:00 PM ES T Body Mass Index 44.66 11/12/2024 3:00 PM EST Plan of Treatment Upcoming Encounters Date Type Department Care Team (Late st Contact Info) Description 03/25/2025 12:00 PM EDT Appointment [facility] [address] [place] [phone] Amy Watson MD [address] [address] Health Maintenance Due Date Last Done Comments DTaP,Tdap,and Td Vaccines (1 - Tdap) 1994 Hepatitis B Vaccines (1 of 3 - 19+ 3-dose series) 1994 Cholesterol Screening (Lipid Panel) 11/19/2019 Colorectal Cancer Screening: Colonoscopy 11/19/2019 Depression Screening 11/19/2019 HIV Screening 11/19/2019 Hepatitis C Screening 11/19/2019 Social Influencers of Health Screening 11/19/2019 COVID-19 Vaccine ( - 2023-2 5 season) 2024 Influenza Vaccine (#1) 2024 HIB Vaccines Aged Out No longer eligi ble based on patient's age to complete this topic HPV Vaccines Aged Out No longer eligi ble based on patient's age to complete this topic Hepatitis A Vaccines Aged Out No long er eligible based on patient's age to complete this topic IPV Vaccines Aged Out No longer eligi ble based on patient's age to complete this topic MMR Vaccines Aged Out No longer eligi ble based on patient's age to complete this topic Meningococcal ACWY Vaccine Aged Out N o longer eligible based on patient's age to complete this topic Meningococcal B Vacine Aged Out No lo nger eligible based on patient's age to complete this topic Pneumococcal Vaccine: Pediat rics (0 to 5 Years) and At-Risk Patients (6 to 64 Years) Aged Out No longer eligible b ased on patient's age to complete this topic RSV Immunization Patients Un zarina 20 months Aged Out No longer eligible b ased on patient's age to complete this topic Varicella Vaccines Aged Out No longer eligible based on patient's age to complete this topic Insurance [facility] Care Teams Bedspread Folder Relationship Specialty Start Date End Date Magda Rivas MD PCP - General 11/06/23
--- OUTSIDE RECORDS SUMMARY | 2024-12-15 16:02 | XMS_ITS | Patient Health Record ---
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 Name Role Phone ETHEL IVERSON Unavailable [phone] AUTUMN CLAYTON Unavailable [phone] ALLERGIES No Known Allergies RESULTS Component Value Reference Range Notes TOTAL AND FREE TESTOSTERONE Reviewed date:05/06/2024 12:11:13 PM Interpretation: Performing Lab: Notes/Report: Note Original Orderi ng Provider: AUTUMN CLAYTON REDRYING MACHINE OPERATOR ALBUMIN 3.8 3.2-5.0 G/dL FOLLICLE STIMULATING HORMONE Reviewed date:05/06/2024 12:11:13 PM Interpretation: Performing Lab: Notes/Report: FOLLICLE STIMULATING HORMONE 1.6 0.7-10.8 mIU /mL LUTEINIZING HORMONE Reviewed date:05/06/2024 12:11:13 PM Interpretation: Performing Lab: Notes/Report: LUTEINIZING HORMONE 1.8 1.2-10.6 mIU/mL Note [employer], a member of [address] [address] Field Assembly Supervisor - Carolina Flores MD REASON FOR REFERRAL Reason Pt needing referral for GI needing colonoscopy. Diagnosis 1 Screen for colon can cer (Z12.11) Referral Organization [email or web address] [facility] Referring Provider First Name ETHEL Referring Provider Last Name ZAYRA Referring Provider Speciality Internal M edicine Referred Provider Jamshid Franklin Referred Provider Specialty Gastroentero logy General Notes Address: [address] [place] [address] [address], [place] [address], Hours: , Open Closes 5 PM, Clinical Notes Vy Gallagher 04/06 08:39:43 AM >, [facility] Wilson 05/22/2024 01:54:59 PM > The patient has an appointment scheduled on 09/21/2024 at 1 pm. Pt is aware Referral Priority Routine Reason [facility] Diagnosis 1 Encounter for screen ing for malignant neoplasm of colon (Z12.11) Referral Organization [facility] Referring Provider First Name ETHEL Referring Provider Last Name ZAYRA Referring Provider Speciality Internal M edicine Referred Provider Specialty Gastroentero logy General Notes SERGIO WHITLOCKIYA 07/07 11:26:35 AM >faxed referral with office notes to [facility] - p: [phone] f: [phone], SteveRasheldeuce 08/21/2024 01:42:23 PM > I called the office, and they informed me that they have reached out to the patient three times and even sent a letter but have not received any response. Referral Priority Routine Reason [facility] diology Diagnosis 1 Other chest pain (R0 7.89) Diagnosis 2 Other forms of dyspn ea (R06.09) Referral Organization [facility] Referring Provider First Name ETHEL Referring Provider Last Name ZAYRA Referring Provider Speciality Internal edicine Referred Provider Specialty Cardiology General Notes CHINYERESERGIOCADE 07/07 11:29:28 AM > faxed referral to [facility] p: [phone] f: [phone] Clinical Notes [facility] Wilson 10/2023 03:01:20 PM > Scheduled for 10/28/2024 at 10 am Ref[facility] 1 Arthralgia of multip le joints (M25.50) Referral Organization [place] [address] Referring Provider First Name AUTUMN Referring Provider Last Name FORREST Referring Provider Speciality Internal M edicine Referred Provider Specialty Rheumatology General Notes Poonam Tavares 09/01/2024 02:32:25 PM > Referral with attachment faxed, pt given information to call and schedule visit. [facility] p: [phone] f: [phone] Clinical Notes [facility] Wilson 02:24:53 PM > refaxed, [facility] Wilson 10/29/2024 01:58:06 PM > Scheduled for 02/16 at 8:15 am. Pt aware Referral Priority Routine MEDICATIONS Medication SIG (Take, Route, Frequency, Duration) [...] Date Status Comme nts influenza IM Intramuscular 07/19/2021 Administered influenza IM Intramuscular 09/01/2024 Administered Tdap IM Intramuscular 09/01/2024 Administered SOCIAL HISTORY Tobacco Use: Social History Observation Description Date Details (start date - stop date) Never Smoker NA - NA Sex Assigned At : Social History Observation Description Sex Assigned At Unknown Tobacco Use/Smoking Question Answer Notes Are you a nonsmoker PROBLEMS Problem Type ICD Code Onset Dates Problem Status W/U Status Risk SNOMED Code Notes Problem Vitamin D deficiency, unspecified (E55.9) Active confirmed Vitamin D defic iency (02972637) Problem Other forms of dyspnea (R06.09) Active confirmed 344126168 Problem Other chest pain (R07.89) Active confirmed Chest pain (31206699) Problem Encounter for screening for malignant neoplasm of colon (Z12.11) Active confirmed 284117157 Problem Encounter for screening for lipoid disorders (Z13.220) Active confirmed Lipid screening (515756272) Problem Morbid obesity (E66.01) Active confirmed 700141267 Problem Screen for colon cancer (Z12.11) Active confirmed 279534352 Problem Adult general medical exam (Z00.00) Active confirmed Adult health examination (673468369) Problem Sleep apnea, unspecified type (G47.30) Active confirmed 18560919 Problem Encounter for diabetic foot exam (E11.9) Active confirmed 676769561 Problem Erectile dysfunction, unspecified erectile dysfunction type (N52.9) Active confirmed 668936585 Problem SONJA (obstructive sleep apnea) (G47.33) Active confirmed 73963870 Problem Diabetes mellitus screening (Z13.1) Active confirmed Diabetes mellit us screening (495328198) Problem Body mass index [BMI]40.0-44.9 , adult (Z68.41) Active confirmed 066403578 Problem Testicular pain, left (N50.812) Active confirmed 88207284019278467 Problem Encounter for screening for endocrine disorder (Z13.29) Active confirmed Endocrine/metab olic screening (238277951) Problem Encounter for prostate cancer screening (Z12.5) Active confirmed Screening for malignant neoplasm of prostate (477764281) Problem Arthralgia of multiple joints (M25.50) Active confirmed 11145303 VITAL SIGNS Heart Rate 82 /min 09/01/2024 Oximetry 97 % 09/01/2024 Blood pressure diastolic 82 mm Hg 09/01/2024 Height 65 in 09/01/2024 Blood pressure systolic 130 mm Hg 09/01/2024 Weight 284 lbs 09/01/2024 BMI 47.25 kg/m2 09/01/2024 Encounters Encounter Location Date Provider Diagnosis [facility] [address] 12/19/2023 AUTUMN CLAYTON Body mass index [BMI]40.0-44.9, adult Z68.41 ; Erectile dysfunction, unspecified erectile dysfunction type N52.9 ; SONJA (obstructive sleep apnea) G47.33 ; Vitamin D deficiency, unspecified E55.9 ; Other chest pain R07.89 and Arthralgia of multiple joints M25.50 [facility] [address] [place] [address] 04/11/2024 AUTUMN CLAYTON [facility] [address] [facility] [address] 03/10/2024 AUTUMN CLAYTON Morbid obesity E66.0 1 ; Body mass index [BMI]40.0-44.9, adult Z68.41 ; Erectile dysfunction, unspecified erectile dysfunction type N52.9 ; SONJA (obstructive sleep apnea) G47.33 ; Vitamin D deficiency, unspecified E55.9 ; Other chest pain R07.89 and Arthralgia of multiple joints M25.50 [facility] [address] [facility]07[facility]2024 [facility] Morbid obesity E66.0 1 ; Body mass index [BMI]40.0-44.9, adult Z68.41 ; Erectile dysfunction, unspecified erectile dysfunction type N52.9 ; SONJA (obstructive sleep apnea) G47.33 ; Other chest pain R07.89 and Arthralgia of multiple joints M25.50 [place] [address] 07/07/2024 [facility] Morbid obesity E66.0 1 ; Body mass index [BMI]40.0-44.9, adult Z68.41 ; Erectile dysfunction, unspecified erectile dysfunction type N52.9 ; SONJA (obstructive sleep apnea) G47.33 ; Other chest pain R07.89 ; Arthralgia of multiple joints M25.50 and SERNA (dyspnea on exertion) R06.09 [place] [address] 09/01/2024 [facility] Morbid obesity E66.0 1 ; Body mass index [BMI]40.0-44.9, adult Z68.41 ; Erectile dysfunction, unspecified erectile dysfunction type N52.9 ; SONJA (obstructive sleep apnea) G47.33 ; Other chest pain R07.89 ; Arthralgia of multiple joints M25.50 ; SERNA (dyspnea on exertion) R06.09 and Encounter for immunization Z23 [facility] [address] [place] [address] 12/16/2023 [place] [address] [address] 12/17/2023 ETHEL IVERSON [facility] [address] [place] [address] 03/10/2024 [place] [address] 07/07/2024 ETHEL SCHILLINGAN [address] [place] [address] 03/10/2024 AUTUMN CLAYTON [address] [facility] [address] [place] [address] 03/12/2024 ETHEL SCHILLINGAN [address] [facility] [address] [place] [address] 03/16/2024 ETHEL SCHILLINGAN [address] [facility] [address] [place] [address] 04/03/2024 AUTUMN KERNT [address] [facility] [address] [place] [address] 04/03/2024 ETHEL IVERSON [address] [facility] [address] [place] [address] 04/03/2024 AUTUMN CLAYTON ASSESSMENTS Encounter Date Diagnosis Assessment Notes Treatment Notes Treatment Clinical Notes Section Notes 12/19/2023 Body mass index [BMI]40.0-44.9, adult (ICD-10 - Z68.41) We will update comprehensive labs * Please obtain these Please follow-up with for your specialty referrals He will be referred for colorectal screening We will be referred for obstructive sleep apnea screening and CPAP titration We discussed weight management strategies and medications we will reexplore this on his physical He will be sent for nuclear medicine stress test given history and recent presentation Instructed to go to the ED if chest pain returns We will refer to rheumatology for generalized pain to rule out PMR and fibromyalgia etc. He will contact obstructive sleep apnea screening office to reinitiate this Total time spent today was 30 minutes [...] mentioned above and not solely appetite suppression. We have discussed the mechanism of GLP-1's/GIP I think this would be fantastic option for her given her metabolic workup and body composition We have discussed the risks and benefits and side effects including/and not limited to Sarcopenia, intestinal obstruction, constipation, nausea, lethargy, headache There is no history of medullary thyroid cancer or multiple endocrine neoplasia There is also no history of cardiovascular disease, hypertension, palpitations, or arrhythmias In the setting of potential stimulant/amphetami ne use such as phentermine Patient has been found to be obese with a BMI of (46). Patient has class 3() obesity. Patient was reassured and welcomed to the practice. We discussed that we stress a hollistic medical approach with emphasis on lifestyle modification. Patient was informed that a healthy lifestyle with exercise and good eating habits can help reduce his risk of medical complications. He is explained that obesity increases his risk of diabetes, cardiovascular disease, or organ damage. We spent a lot of time discussing the relationship between food, exercise, sleep, mental health and obesity. Patient was counseled on the importance EATING local, organic food when possible. Patient was educated on clean 15 and dirty dozen. I provided information about reading books called The Food Rules by René Leon and Eat Fat Get Lean by Dr Dwayne Anderson. Self education is important in the journey for weight management. Patient was offered diagnostic testing. We want to measure visceral adiposity, advanced body composition, adverse lipids, fatty acid balance, risk for heart disease and atherosclerosis, markers of inflammation and genetic susceptibility. Patient was counseled on weight management and was advised to lose weight using A. Meal Replacement Products Patient was educated on the replacement products called optifast. This is a good way of taking fixed amount of calories. It has been shown in studies to be ineffective weight management tool. This however has to be coupled with lifestyle intervention as well as laboratory data and EKG monitoring. It is impossible to know how a person will tolerate complete meal replacement. The side effects of meal replacement and weight loss could include syncopal attacks, dizziness, gallstones, potential cholecystectomy, possible heart attack and even . The benefits of meal replacement would be potential weight loss but no guarantees can be made. Meal replacement products are not covered by insurance. Once the patient has bought these products we cannot return them B. Lifestyle management which includes several strategies as below 1. Eat a low carbohydrate good fat good protein diet. Eliminate refined carbohydrates from the diet. Continue blood sugar and sugared beverages. Eat local organic when possible. Cook your own meals. Read food labels. None about healthy snacks. Portion control and food with low glycemic index 2. Exercise regularly. Try to get at least 6000 steps a day. Use a predominant to track activity level. Consider using apps like [employer], [employer], lose it, stick as needed for self-monitoring and weight management. Consider group exercises. Consider hiring a personal property appraiser. Regular exercise is hurst to sustainable health and prevents as a buffer against weight regain 3. Sleep is most important for healing. Tried to sleep at least 8 hours a night. A good quality sleep needs a sleep ritual with ideal room temperature of around 68. It might help to take a shower and have no electronics in the room and sleep in a very dark room without artificial light. Start her sleep routine and get up early in the morning and go to bed on time 4. Make a social connection. Surround yourself with positive people with positive energy. Connect with friends and family. 5. Get into the habit of meditating and mindfulness while doing everything. 6. Go outside and connect with nature. C. Prescription medications Patient was educated on the use of prescription medications for medical weight loss. This is a growing list and includes phentermine, Topamax,Qsymia, contrave, belviq and saxenda. All prescription medications could have side effects including but not limited to kidney stones, seizure disorder cardiac arrhythmias heart attack pancreatitis etc. etc.. Patient was encouraged to read the prescription insert and have coaching with their pharmacist and make an informed decision about taking medication and know that these medications are being prescribed with good intentions and we do not know how a patient would react to her medication. Sudden medications are FDA approved for weight loss and there is also off label use depending on patient's inability to afford medications in an attempt to lose weight D. Behavioral counseling was done to establish a relationship between food and an mood. Patient was provided information about local counseling and psychiatry and Dr Bell at [employer]. We would like to cover regular topics and build on low glycemic eating exercise mindful eating, using yoga and meditation along with deep breathing and connecting with friends and family. E. MASS PAT reviewed, Patient's current medications were reviewed and opinion was given on medication that can cause weight gain and can be substituted F. Patient was assessed for risk with obesity including and not limiting to atherosclerosis heart disease stroke kidney disease, restrictive lung disease, irritable bowel syndrome and overall mortality. Risk of developing prediabetes diabetes and metabolic syndrome was discussed G. Therapeutic plan: We have decided to make therapeutic plan which would include choosing wisely on calories restricting portion getting active, tracking weight, getting good quality sleep and working on time management H. Patient will follow up in (4) weeks for weight management Of note, some information is being carried forward from prior records for informational purposes only and is being cited so that efficiency, safety and quality of the patient's care is not compromised This note was prepared using voice recognition software and direct typing Please excuse inadvertent bevel polisher or typing errors, or uncorrected word substitutions Although every attempt has been made by the provider to proofread this document, occasional misspellings and typographical errors may still be present Due to the previous pandemic, and the use of personal protective equipment (PPE) This may decrease voice recognition accuracy Inadvertent bevel polisher errors may occur 03/10/2024 Morbid obesity (ICD-10 - E66.01) Acute Concerns/Problem List: 03/10/2024 Hypogonadism workup Please follow-up with for your specialty referrals All of these referrals were done on our end He will be referred for colorectal screening, Number provided for [employer] We will be referred for obstructive sleep apnea screening and CPAP titration, Number provided for sleep medicine services We discussed weight management strategies and We will begins Tirzapetide/Zepboun d He will be sent for nuclear medicine stress test given history and recent presentation, Number given to PVC Instructed to go to the ED if chest pain returns We will refer to rheumatology for generalized pain to rule out PMR and fibromyalgia etc., Number given to [facility] Center Total time spent today was 30 minutes [...] mentioned above and not solely appetite suppression. We have discussed the mechanism of GLP-1's/GIP I think this would be fantastic option for her given her metabolic workup and body composition We have discussed the risks and benefits and side effects including/and not limited to Sarcopenia, intestinal obstruction, constipation, nausea, lethargy, headache There is no history of medullary thyroid cancer or multiple endocrine neoplasia There is also no history of cardiovascular disease, hypertension, palpitations, or arrhythmias In the setting of potential stimulant/amphetami ne use such as phentermine Patient has been found to be obese with a BMI of (46). Patient has class 3obesity. Patient was reassured and welcomed to the practice. We discussed that we stress a hollistic medical approach with emphasis on lifestyle modification. Patient was informed that a healthy lifestyle with exercise and good eating habits can help reduce his risk of medical complications. He is explained that obesity increases his risk of diabetes, cardiovascular disease, or organ damage. We spent a lot of time discussing the relationship between food, exercise, sleep, mental health and obesity. Patient was counseled on the importance EATING local, organic food when possible. Patient was educated on clean 15 and dirty dozen. I provided information about reading books called The Food Rules by René Leon and Eat Fat Get Lean by Dr Dwayne Anderson. Self education is important in the journey for weight management. Patient was offered diagnostic testing. We want to measure visceral adiposity, advanced body composition, adverse lipids, fatty acid balance, risk for heart disease and atherosclerosis, markers of inflammation and genetic susceptibility. Patient was counseled on weight management and was advised to lose weight using A. Meal Replacement Products Patient was educated on the replacement products called optifast. This is a good way of taking fixed amount of calories. It has been shown in studies to be ineffective weight management tool. This however has to be coupled with lifestyle intervention as well as laboratory data and EKG monitoring. It is impossible to know how a person will tolerate complete meal replacement. The side effects of meal replacement and weight loss could include syncopal attacks, dizziness, gallstones, potential cholecystectomy, possible heart attack and even . The benefits of meal replacement would be potential weight loss but no guarantees can be made. Meal replacement products are not covered by insurance. Once the patient has bought these products we cannot return them B. Lifestyle management which includes several strategies as below 1. Eat a low carbohydrate good fat good protein diet. Eliminate refined carbohydrates from the diet. Continue blood sugar and sugared beverages. Eat local organic when possible. Cook your own meals. Read food labels. None about healthy snacks. Portion control and food with low glycemic index 2. Exercise regularly. Try to get at least 6000 steps a day. Use a predominant to track activity level. Consider using apps like [employer], [employer], lose it, stick as needed for self-monitoring and weight management. Consider group exercises. Consider hiring a personal property appraiser. Regular exercise is hurst to sustainable health and prevents as a buffer against weight regain 3. Sleep is most important for healing. Tried to sleep at least 8 hours a night. A good quality sleep needs a sleep ritual with ideal room temperature of around 68. It might help to take a shower and have no electronics in the room and sleep in a very dark room without artificial light. Start her sleep routine and get up early in the morning and go to bed on time 4. Make a social connection. Surround yourself with positive people with positive energy. Connect with friends and family. 5. Get into the habit of meditating and mindfulness while doing everything. 6. Go outside and connect with nature. C. Prescription medications Patient was educated on the use of prescription medications for medical weight loss. This is a growing list and includes phentermine, Topamax,Qsymia, contrave, belviq and saxenda. All prescription medications could have side effects including but not limited to kidney stones, seizure disorder cardiac arrhythmias heart attack pancreatitis etc. etc.. Patient was encouraged to read the prescription insert and have coaching with their pharmacist and make an informed decision about taking medication and know that these medications are being prescribed with good intentions and we do not know how a patient would react to her medication. Sudden medications are FDA approved for weight loss and there is also off label use depending on patient's inability to afford medications in an attempt to lose weight D. Behavioral counseling was done to establish a relationship between food and an mood. Patient was provided information about local counseling and psychiatry and Dr Bell at [employer]. We would like to cover regular topics and build on low glycemic eating exercise mindful eating, using yoga and meditation along with deep breathing and connecting with friends and family. E. MASS PAT reviewed, Patient's current medications were reviewed and opinion was given on medication that can cause weight gain and can be substituted F. Patient was assessed for risk with obesity including and not limiting to atherosclerosis heart disease stroke kidney disease, restrictive lung disease, irritable bowel syndrome and overall mortality. Risk of developing prediabetes diabetes and metabolic syndrome was discussed G. Therapeutic plan: We have decided to make therapeutic plan which would include choosing wisely on calories restricting portion getting active, tracking weight, getting good quality sleep and working on time management H. Patient will follow up in (4) weeks for weight management Of note, some information is being carried forward from prior records for informational purposes only and is being cited so that efficiency, safety and quality of the patient's care is not compromised This note was prepared using voice recognition software and direct typing Please excuse inadvertent bevel polisher or typing errors, or uncorrected word substitutions Although every attempt has been made by the provider to proofread this document, occasional misspellings and typographical errors may still be present Due to the previous pandemic, and the use of personal protective equipment (PPE) This may decrease voice recognition accuracy Inadvertent bevel polisher errors may occur 05/07/2024 Morbid obesity (ICD-10 - E66.01) Acute Concerns/Problem List: 05/07/2024 Will try for Wegovy GLP therapy Dual incretin was not approved Please follow-up with for your specialty referrals All of these referrals were done on our end He will be referred for colorectal screening, Number provided for [employer] We will be referred for obstructive sleep apnea screening and CPAP titration, Number provided for sleep medicine services We discussed weight management strategies and We will begins Tirzapetide/Zepboun d *He will be sent for nuclear medicine stress test given history and recent presentation, Number given to PVC Instructed to go to the ED if chest pain returns Total time spent today was 30 minutes [...] mentioned above and not solely appetite suppression. We have discussed the mechanism of GLP-1's/GIP I think this would be fantastic option for her given her metabolic workup and body composition We have discussed the risks and benefits and side effects including/and not limited to Sarcopenia, intestinal obstruction, constipation, nausea, lethargy, headache There is no history of medullary thyroid cancer or multiple endocrine neoplasia There is also no history of cardiovascular disease, hypertension, palpitations, or arrhythmias In the setting of potential stimulant/amphetami ne use such as phentermine Patient has been found to be obese with a BMI of (46). Patient has class 3obesity. Patient was reassured and welcomed to the practice. We discussed that we stress a hollistic medical approach with emphasis on lifestyle modification. Patient was informed that a healthy lifestyle with exercise and good eating habits can help reduce his risk of medical complications. He is explained that obesity increases his risk of diabetes, cardiovascular disease, or organ damage. We spent a lot of time discussing the relationship between food, exercise, sleep, mental health and obesity. Patient was counseled on the importance EATING local, organic food when possible. Patient was educated on clean 15 and dirty dozen. I provided information about reading books called The Food Rules by René Leon and Eat Fat Get Lean by Dr Dwayne Anderson. Self education is important in the journey for weight management. Patient was offered diagnostic testing. We want to measure visceral adiposity, advanced body composition, adverse lipids, fatty acid balance, risk for heart disease and atherosclerosis, markers of inflammation and genetic susceptibility. Patient was counseled on weight management and was advised to lose weight using A. Meal Replacement Products Patient was educated on the replacement products called optifast. This is a good way of taking fixed amount of calories. It has been shown in studies to be ineffective weight management tool. This however has to be coupled with lifestyle intervention as well as laboratory data and EKG monitoring. It is impossible to know how a person will tolerate complete meal replacement. The side effects of meal replacement and weight loss could include syncopal attacks, dizziness, gallstones, potential cholecystectomy, possible heart attack and even . The benefits of meal replacement would be potential weight loss but no guarantees can be made. Meal replacement products are not covered by insurance. Once the patient has bought these products we cannot return them B. Lifestyle management which includes several strategies as below 1. Eat a low carbohydrate good fat good protein diet. Eliminate refined carbohydrates from the diet. Continue blood sugar and sugared beverages. Eat local organic when possible. Cook your own meals. Read food labels. None about healthy snacks. Portion control and food with low glycemic index 2. Exercise regularly. Try to get at least 6000 steps a day. Use a predominant to track activity level. Consider using apps like Pharmly, myfitnesspal, lose it, stick as needed for self-monitoring and weight management. Consider group exercises. Consider hiring a personal property appraiser. Regular exercise is hurst to sustainable health and prevents as a buffer against weight regain 3. Sleep is most important for healing. Tried to sleep at least 8 hours a night. A good quality sleep needs a sleep ritual with ideal room temperature of around 68. It might help to take a shower and have no electronics in the room and sleep in a very dark room without artificial light. Start her sleep routine and get up early in the morning and go to bed on time 4. Make a social connection. Surround yourself with positive people with positive energy. Connect with friends and family. 5. Get into the habit of meditating and mindfulness while doing everything. 6. Go outside and connect with nature. C. Prescription medications Patient was educated on the use of prescription medications for medical weight loss. This is a growing list and includes phentermine, Topamax,Qsymia, contrave, belviq and saxenda. All prescription medications could have side effects including but not limited to kidney stones, seizure disorder cardiac arrhythmias heart attack pancreatitis etc. etc.. Patient was encouraged to read the prescription insert and have coaching with their pharmacist and make an informed decision about taking medication and know that these medications are being prescribed with good intentions and we do not know how a patient would react to her medication. Sudden medications are FDA approved for weight loss and there is also off label use depending on patient's inability to afford medications in an attempt to lose weight D. Behavioral counseling was done to establish a relationship between food and an mood. Patient was provided information about local counseling and psychiatry and Dr Bell at [facility]. We would like to cover regular topics and build on low glycemic eating exercise mindful eating, using yoga and meditation along with deep breathing and connecting with friends and family. E. MASS PAT reviewed, Patient's current medications were reviewed and opinion was given on medication that can cause weight gain and can be substituted F. Patient was assessed for risk with obesity including and not limiting to atherosclerosis heart disease stroke kidney disease, restrictive lung disease, irritable bowel syndrome and overall mortality. Risk of developing prediabetes diabetes and metabolic syndrome was discussed G. Therapeutic plan: We have decided to make therapeutic plan which would include choosing wisely on calories restricting portion getting active, tracking weight, getting good quality sleep and working on time management H. Patient will follow up in (4) weeks for weight management Of note, some information is being carried forward from prior records for informational purposes only and is being cited so that efficiency, safety and quality of the patient's care is not compromised This note was prepared using voice recognition software and direct typing Please excuse inadvertent bevel polisher or typing errors, or uncorrected word substitutions Although every attempt has been made by the provider to proofread this document, occasional misspellings and typographical errors may still be present Due to the previous pandemic, and the use of personal protective equipment (PPE) This may decrease voice recognition accuracy Inadvertent bevel polisher errors may occur 07/07/2024 Morbid obesity (ICD-10 - E66.01) Acute Concerns/Problem List: 07/07/2024 Wegovy 0.25 mg, sent to [facility] specialty pharmacy Please follow-up with for your specialty referrals All of these referrals were done on our end He will be referred for colorectal screening, Number provided for GI We will be referred for obstructive sleep apnea screening and CPAP titration, Number provided for sleep medicine services We discussed weight management strategies and We will begins Tirzapetide/Zepboun d *He will be sent for nuclear medicine stress test @ given history and recent presentation, Number given to PVC Instructed to go to the ED if chest pain returns Total time spent today was 30 minutes [...] mentioned above and not solely appetite suppression. We have discussed the mechanism of GLP-1's/GIP I think this would be fantastic option for her given her metabolic workup and body composition We have discussed the risks and benefits and side effects including/and not limited to Sarcopenia, intestinal obstruction, constipation, nausea, lethargy, headache There is no history of medullary thyroid cancer or multiple endocrine neoplasia There is also no history of cardiovascular disease, hypertension, palpitations, or arrhythmias In the setting of potential stimulant/amphetami ne use such as phentermine Patient has been found to be obese with a BMI of (46). Patient has class 3obesity. Patient was reassured and welcomed to the practice. We discussed that we stress a hollistic medical approach with emphasis on lifestyle modification. Patient was informed that a healthy lifestyle with exercise and good eating habits can help reduce his risk of medical complications. He is explained that obesity increases his risk of diabetes, cardiovascular disease, or organ damage. We spent a lot of time discussing the relationship between food, exercise, sleep, mental health and obesity. Patient was counseled on the importance EATING local, organic food when possible. Patient was educated on clean 15 and dirty dozen. I provided information about reading books called The Food Rules by René Leon and Eat Fat Get Lean by Dr Dwayne Anderson. Self education is important in the journey for weight management. Patient was offered diagnostic testing. We want to measure visceral adiposity, advanced body composition, adverse lipids, fatty acid balance, risk for heart disease and atherosclerosis, markers of inflammation and genetic susceptibility. Patient was counseled on weight management and was advised to lose weight using A. Meal Replacement Products Patient was educated on the replacement products called optifast. This is a good way of taking fixed amount of calories. It has been shown in studies to be ineffective weight management tool. This however has to be coupled with lifestyle intervention as well as laboratory data and EKG monitoring. It is impossible to know how a person will tolerate complete meal replacement. The side effects of meal replacement and weight loss could include syncopal attacks, dizziness, gallstones, potential cholecystectomy, possible heart attack and even . The benefits of meal replacement would be potential weight loss but no guarantees can be made. Meal replacement products are not covered by insurance. Once the patient has bought these products we cannot return them B. Lifestyle management which includes several strategies as below 1. Eat a low carbohydrate good fat good protein diet. Eliminate refined carbohydrates from the diet. Continue blood sugar and sugared beverages. Eat local organic when possible. Cook your own meals. Read food labels. None about healthy snacks. Portion control and food with low glycemic index 2. Exercise regularly. Try to get at least 6000 steps a day. Use a predominant to track activity level. Consider using apps like Pharmly, myfitnesspal, lose it, stick as needed for self-monitoring and weight management. Consider group exercises. Consider hiring a personal property appraiser. Regular exercise is hurst to sustainable health and prevents as a buffer against weight regain 3. Sleep is most important for healing. Tried to sleep at least 8 hours a night. A good quality sleep needs a sleep ritual with ideal room temperature of around 68. It might help to take a shower and have no electronics in the room and sleep in a very dark room without artificial light. Start her sleep routine and get up early in the morning and go to bed on time 4. Make a social connection. Surround yourself with positive people with positive energy. Connect with friends and family. 5. Get into the habit of meditating and mindfulness while doing everything. 6. Go outside and connect with nature. C. Prescription medications Patient was educated on the use of prescription medications for medical weight loss. This is a growing list and includes phentermine, Topamax,Qsymia, contrave, belviq and saxenda. All prescription medications could have side effects including but not limited to kidney stones, seizure disorder cardiac arrhythmias heart attack pancreatitis etc. etc.. Patient was encouraged to read the prescription insert and have coaching with their pharmacist and make an informed decision about taking medication and know that these medications are being prescribed with good intentions and we do not know how a patient would react to her medication. Sudden medications are FDA approved for weight loss and there is also off label use depending on patient's inability to afford medications in an attempt to lose weight D. Behavioral counseling was done to establish a relationship between food and an mood. Patient was provided information about local counseling and psychiatry and Dr Bell at [employer]. We would like to cover regular topics and build on low glycemic eating exercise mindful eating, using yoga and meditation along with deep breathing and connecting with friends and family. E. MASS PAT reviewed, Patient's current medications were reviewed and opinion was given on medication that can cause weight gain and can be substituted F. Patient was assessed for risk with obesity including and not limiting to atherosclerosis heart disease stroke kidney disease, restrictive lung disease, irritable bowel syndrome and overall mortality. Risk of developing prediabetes diabetes and metabolic syndrome was discussed G. Therapeutic plan: We have decided to make therapeutic plan which would include choosing wisely on calories restricting portion getting active, tracking weight, getting good quality sleep and working on time management H. Patient will follow up in (4) weeks for weight management Of note, some information is being carried forward from prior records for informational purposes only and is being cited so that efficiency, safety and quality of the patient's care is not compromised This note was prepared using voice recognition software and direct typing Please excuse inadvertent bevel polisher or typing errors, or uncorrected word substitutions Although every attempt has been made by the provider to proofread this document, occasional misspellings and typographical errors may still be present Due to the previous pandemic, and the use of personal protective equipment (PPE) This may decrease voice recognition accuracy Inadvertent bevel polisher errors may occur 09/01/2024 Morbid obesity (ICD-10 - E66.01) Acute Concerns/Problem List: 09/01/2024 DCF paperwork was filled out today We have given him a starter pack of Wegovy 0.25 mg Tdap today Flu shot today Scheduled to see cardiology early October as well as gastroenterology next month For stress testing as well as colonoscopy Will refer to rheumatology at [facility] _update labs and CPE Total time [...] software and direct typing Please excuse inadvertent bevel polisher or typing errors, or uncorrected word substitutions Although every attempt has been made by the provider to proofread this document, occasional misspellings and typographical errors may still be present Due to the previous pandemic, and the use of personal protective equipment (PPE) This may decrease voice recognition accuracy Inadvertent bevel polisher errors may occur 09/01/2024 Body mass index [BMI]40.0-44.9, adult (ICD-10 - Z68.41) Acute Concerns/Problem List: 09/01/2024 DCF paperwork was filled out today We have given him a starter pack of Wegovy 0.25 mg Tdap today Flu shot today Scheduled to see cardiology early October as well as gastroenterology next month For stress testing as well as colonoscopy Will refer to rheumatology at [facility] _update labs and CPE Total time [...] software and direct typing Please excuse inadvertent bevel polisher or typing errors, or uncorrected word substitutions Although every attempt has been made by the provider to proofread this document, occasional misspellings and typographical errors may still be present Due to the previous pandemic, and the use of personal protective equipment (PPE) This may decrease voice recognition accuracy Inadvertent bevel polisher errors may occur 07/07/2024 Body mass index [BMI]40.0-44.9, adult (ICD-10 - Z68.41) Acute Concerns/Problem List: 07/07/2024 Wegovy 0.25 mg, sent to [facility] specialty pharmacy Please follow-up with for your specialty referrals All of these referrals were done on our end He will be referred for colorectal screening, Number provided for GI We will be referred for obstructive sleep apnea screening and CPAP titration, Number provided for sleep medicine services We discussed weight management strategies and We will begins Tirzapetide/Zepboun d *He will be sent for nuclear medicine stress test @ given history and recent presentation, Number given to PVC Instructed to go to the ED if chest pain returns Total time spent today was 30 minutes [...] mentioned above and not solely appetite suppression. We have discussed the mechanism of GLP-1's/GIP I think this would be fantastic option for her given her metabolic workup and body composition We have discussed the risks and benefits and side effects including/and not limited to Sarcopenia, intestinal obstruction, constipation, nausea, lethargy, headache There is no history of medullary thyroid cancer or multiple endocrine neoplasia There is also no history of cardiovascular disease, hypertension, palpitations, or arrhythmias In the setting of potential stimulant/amphetami ne use such as phentermine Patient has been found to be obese with a BMI of (46). Patient has class 3obesity. Patient was reassured and welcomed to the practice. We discussed that we stress a hollistic medical approach with emphasis on lifestyle modification. Patient was informed that a healthy lifestyle with exercise and good eating habits can help reduce his risk of medical complications. He is explained that obesity increases his risk of diabetes, cardiovascular disease, or organ damage. We spent a lot of time discussing the relationship between food, exercise, sleep, mental health and obesity. Patient was counseled on the importance EATING local, organic food when possible. Patient was educated on clean 15 and dirty dozen. I provided information about reading books called The Food Rules by René Leon and Eat Fat Get Lean by Dr Dwayne Anderson. Self education is important in the journey for weight management. Patient was offered diagnostic testing. We want to measure visceral adiposity, advanced body composition, adverse lipids, fatty acid balance, risk for heart disease and atherosclerosis, markers of inflammation and genetic susceptibility. Patient was counseled on weight management and was advised to lose weight using A. Meal Replacement Products Patient was educated on the replacement products called optifast. This is a good way of taking fixed amount of calories. It has been shown in studies to be ineffective weight management tool. This however has to be coupled with lifestyle intervention as well as laboratory data and EKG monitoring. It is impossible to know how a person will tolerate complete meal replacement. The side effects of meal replacement and weight loss could include syncopal attacks, dizziness, gallstones, potential cholecystectomy, possible heart attack and even . The benefits of meal replacement would be potential weight loss but no guarantees can be made. Meal replacement products are not covered by insurance. Once the patient has bought these products we cannot return them B. Lifestyle management which includes several strategies as below 1. Eat a low carbohydrate good fat good protein diet. Eliminate refined carbohydrates from the diet. Continue blood sugar and sugared beverages. Eat local organic when possible. Cook your own meals. Read food labels. None about healthy snacks. Portion control and food with low glycemic index 2. Exercise regularly. Try to get at least 6000 steps a day. Use a predominant to track activity level. Consider using apps like Pharmly, [employer], lose it, stick as needed for self-monitoring and weight management. Consider group exercises. Consider hiring a personal property appraiser. Regular exercise is hurst to sustainable health and prevents as a buffer against weight regain 3. Sleep is most important for healing. Tried to sleep at least 8 hours a night. A good quality sleep needs a sleep ritual with ideal room temperature of around 68. It might help to take a shower and have no electronics in the room and sleep in a very dark room without artificial light. Start her sleep routine and get up early in the morning and go to bed on time 4. Make a social connection. Surround yourself with positive people with positive energy. Connect with friends and family. 5. Get into the habit of meditating and mindfulness while doing everything. 6. Go outside and connect with nature. C. Prescription medications Patient was educated on the use of prescription medications for medical weight loss. This is a growing list and includes phentermine, Topamax,Qsymia, contrave, belviq and saxenda. All prescription medications could have side effects including but not limited to kidney stones, seizure disorder cardiac arrhythmias heart attack pancreatitis etc. etc.. Patient was encouraged to read the prescription insert and have coaching with their pharmacist and make an informed decision about taking medication and know that these medications are being prescribed with good intentions and we do not know how a patient would react to her medication. Sudden medications are FDA approved for weight loss and there is also off label use depending on patient's inability to afford medications in an attempt to lose weight D. Behavioral counseling was done to establish a relationship between food and an mood. Patient was provided information about local counseling and psychiatry and Dr Bell at [facility]. We would like to cover regular topics and build on low glycemic eating exercise mindful eating, using yoga and meditation along with deep breathing and connecting with friends and family. E. MASS PAT reviewed, Patient's current medications were reviewed and opinion was given on medication that can cause weight gain and can be substituted F. Patient was assessed for risk with obesity including and not limiting to atherosclerosis heart disease stroke kidney disease, restrictive lung disease, irritable bowel syndrome and overall mortality. Risk of developing prediabetes diabetes and metabolic syndrome was discussed G. Therapeutic plan: We have decided to make therapeutic plan which would include choosing wisely on calories restricting portion getting active, tracking weight, getting good quality sleep and working on time management H. Patient will follow up in (4) weeks for weight management Of note, some information is being carried forward from prior records for informational purposes only and is being cited so that efficiency, safety and quality of the patient's care is not compromised This note was prepared using voice recognition software and direct typing Please excuse inadvertent bevel polisher or typing errors, or uncorrected word substitutions Although every attempt has been made by the provider to proofread this document, occasional misspellings and typographical errors may still be present Due to the previous pandemic, and the use of personal protective equipment (PPE) This may decrease voice recognition accuracy Inadvertent bevel polisher errors may occur 05/07/2024 Body mass index [BMI]40.0-44.9, adult (ICD-10 - Z68.41) Acute Concerns/Problem List: 05/07/2024 Will try for Wegovy GLP therapy Dual incretin was not approved Please follow-up with for your specialty referrals All of these referrals were done on our end He will be referred for colorectal screening, Number provided for [facility] We will be referred for obstructive sleep apnea screening and CPAP titration, Number provided for sleep medicine services We discussed weight management strategies and We will begins Tirzapetide/Zepboun d *He will be sent for nuclear medicine stress test given history and recent presentation, Number given to PVC Instructed to go to the ED if chest pain returns Total time spent today was 30 minutes [...] mentioned above and not solely appetite suppression. We have discussed the mechanism of GLP-1's/GIP I think this would be fantastic option for her given her metabolic workup and body composition We have discussed the risks and benefits and side effects including/and not limited to Sarcopenia, intestinal obstruction, constipation, nausea, lethargy, headache There is no history of medullary thyroid cancer or multiple endocrine neoplasia There is also no history of cardiovascular disease, hypertension, palpitations, or arrhythmias In the setting of potential stimulant/amphetami ne use such as phentermine Patient has been found to be obese with a BMI of (46). Patient has class 3obesity. Patient was reassured and welcomed to the practice. We discussed that we stress a hollistic medical approach with emphasis on lifestyle modification. Patient was informed that a healthy lifestyle with exercise and good eating habits can help reduce his risk of medical complications. He is explained that obesity increases his risk of diabetes, cardiovascular disease, or organ damage. We spent a lot of time discussing the relationship between food, exercise, sleep, mental health and obesity. Patient was counseled on the importance EATING local, organic food when possible. Patient was educated on clean 15 and dirty dozen. I provided information about reading books called The Food Rules by René Leon and Eat Fat Get Lean by Dr Dwayne Anderson. Self education is important in the journey for weight management. Patient was offered diagnostic testing. We want to measure visceral adiposity, advanced body composition, adverse lipids, fatty acid balance, risk for heart disease and atherosclerosis, markers of inflammation and genetic susceptibility. Patient was counseled on weight management and was advised to lose weight using A. Meal Replacement Products Patient was educated on the replacement products called optifast. This is a good way of taking fixed amount of calories. It has been shown in studies to be ineffective weight management tool. This however has to be coupled with lifestyle intervention as well as laboratory data and EKG monitoring. It is impossible to know how a person will tolerate complete meal replacement. The side effects of meal replacement and weight loss could include syncopal attacks, dizziness, gallstones, potential cholecystectomy, possible heart attack and even . The benefits of meal replacement would be potential weight loss but no guarantees can be made. Meal replacement products are not covered by insurance. Once the patient has bought these products we cannot return them B. Lifestyle management which includes several strategies as below 1. Eat a low carbohydrate good fat good protein diet. Eliminate refined carbohydrates from the diet. Continue blood sugar and sugared beverages. Eat local organic when possible. Cook your own meals. Read food labels. None about healthy snacks. Portion control and food with low glycemic index 2. Exercise regularly. Try to get at least 6000 steps a day. Use a predominant to track activity level. Consider using apps like [employer] excercise, [employer], lose it, stick as needed for self-monitoring and weight management. Consider group exercises. Consider hiring a personal property appraiser. Regular exercise is hurst to sustainable health and prevents as a buffer against weight regain 3. Sleep is most important for healing. Tried to sleep at least 8 hours a night. A good quality sleep needs a sleep ritual with ideal room temperature of around 68. It might help to take a shower and have no electronics in the room and sleep in a very dark room without artificial light. Start her sleep routine and get up early in the morning and go to bed on time 4. Make a social connection. Surround yourself with positive people with positive energy. Connect with friends and family. 5. Get into the habit of meditating and mindfulness while doing everything. 6. Go outside and connect with nature. C. Prescription medications Patient was educated on the use of prescription medications for medical weight loss. This is a growing list and includes phentermine, Topamax,Qsymia, contrave, belviq and saxenda. All prescription medications could have side effects including but not limited to kidney stones, seizure disorder cardiac arrhythmias heart attack pancreatitis etc. etc.. Patient was encouraged to read the prescription insert and have coaching with their pharmacist and make an informed decision about taking medication and know that these medications are being prescribed with good intentions and we do not know how a patient would react to her medication. Sudden medications are FDA approved for weight loss and there is also off label use depending on patient's inability to afford medications in an attempt to lose weight D. Behavioral counseling was done to establish a relationship between food and an mood. Patient was provided information about local counseling and psychiatry and Dr Bell at [facility]. We would like to cover regular topics and build on low glycemic eating exercise mindful eating, using yoga and meditation along with deep breathing and connecting with friends and family. E. MASS PAT reviewed, Patient's current medications were reviewed and opinion was given on medication that can cause weight gain and can be substituted F. Patient was assessed for risk with obesity including and not limiting to atherosclerosis heart disease stroke kidney disease, restrictive lung disease, irritable bowel syndrome and overall mortality. Risk of developing prediabetes diabetes and metabolic syndrome was discussed G. Therapeutic plan: We have decided to make therapeutic plan which would include choosing wisely on calories restricting portion getting active, tracking weight, getting good quality sleep and working on time management H. Patient will follow up in (4) weeks for weight management Of note, some information is being carried forward from prior records for informational purposes only and is being cited so that efficiency, safety and quality of the patient's care is not compromised This note was prepared using voice recognition software and direct typing Please excuse inadvertent bevel polisher or typing errors, or uncorrected word substitutions Although every attempt has been made by the provider to proofread this document, occasional misspellings and typographical errors may still be present Due to the previous pandemic, and the use of personal protective equipment (PPE) This may decrease voice recognition accuracy Inadvertent bevel polisher errors may occur 03/10/2024 Body mass index [BMI]40.0-44.9, adult (ICD-10 - Z68.41) Acute Concerns/Problem List: 03/10/2024 Hypogonadism workup Please follow-up with for your specialty referrals All of these referrals were done on our end He will be referred for colorectal screening, Number provided for [facility] We will be referred for obstructive sleep apnea screening and CPAP titration, Number provided for sleep medicine services We discussed weight management strategies and We will begins Tirzapetide/Zepboun d He will be sent for nuclear medicine stress test given history and recent presentation, Number given to PVC Instructed to go to the ED if chest pain returns We will refer to rheumatology for generalized pain to rule out PMR and fibromyalgia etc., Number given to [facility] Total time spent today was 30 minutes [...] mentioned above and not solely appetite suppression. We have discussed the mechanism of GLP-1's/GIP I think this would be fantastic option for her given her metabolic workup and body composition We have discussed the risks and benefits and side effects including/and not limited to Sarcopenia, intestinal obstruction, constipation, nausea, lethargy, headache There is no history of medullary thyroid cancer or multiple endocrine neoplasia There is also no history of cardiovascular disease, hypertension, palpitations, or arrhythmias In the setting of potential stimulant/amphetami ne use such as phentermine Patient has been found to be obese with a BMI of (46). Patient has class 3obesity. Patient was reassured and welcomed to the practice. We discussed that we stress a hollistic medical approach with emphasis on lifestyle modification. Patient was informed that a healthy lifestyle with exercise and good eating habits can help reduce his risk of medical complications. He is explained that obesity increases his risk of diabetes, cardiovascular disease, or organ damage. We spent a lot of time discussing the relationship between food, exercise, sleep, mental health and obesity. Patient was counseled on the importance EATING local, organic food when possible. Patient was educated on clean 15 and dirty dozen. I provided information about reading books called The Food Rules by René Leon and Eat Fat Get Lean by Dr Dwayne Anderson. Self education is important in the journey for weight management. Patient was offered diagnostic testing. We want to measure visceral adiposity, advanced body composition, adverse lipids, fatty acid balance, risk for heart disease and atherosclerosis, markers of inflammation and genetic susceptibility. Patient was counseled on weight management and was advised to lose weight using A. Meal Replacement Products Patient was educated on the replacement products called optifast. This is a good way of taking fixed amount of calories. It has been shown in studies to be ineffective weight management tool. This however has to be coupled with lifestyle intervention as well as laboratory data and EKG monitoring. It is impossible to know how a person will tolerate complete meal replacement. The side effects of meal replacement and weight loss could include syncopal attacks, dizziness, gallstones, potential cholecystectomy, possible heart attack and even . The benefits of meal replacement would be potential weight loss but no guarantees can be made. Meal replacement products are not covered by insurance. Once the patient has bought these products we cannot return them B. Lifestyle management which includes several strategies as below 1. Eat a low carbohydrate good fat good protein diet. Eliminate refined carbohydrates from the diet. Continue blood sugar and sugared beverages. Eat local organic when possible. Cook your own meals. Read food labels. None about healthy snacks. Portion control and food with low glycemic index 2. Exercise regularly. Try to get at least 6000 steps a day. Use a predominant to track activity level. Consider using apps like [employer], [employer], lose it, stick as needed for self-monitoring and weight management. Consider group exercises. Consider hiring a personal property appraiser. Regular exercise is hurst to sustainable health and prevents as a buffer against weight regain 3. Sleep is most important for healing. Tried to sleep at least 8 hours a night. A good quality sleep needs a sleep ritual with ideal room temperature of around 68. It might help to take a shower and have no electronics in the room and sleep in a very dark room without artificial light. Start her sleep routine and get up early in the morning and go to bed on time 4. Make a social connection. Surround yourself with positive people with positive energy. Connect with friends and family. 5. Get into the habit of meditating and mindfulness while doing everything. 6. Go outside and connect with nature. C. Prescription medications Patient was educated on the use of prescription medications for medical weight loss. This is a growing list and includes phentermine, Topamax,Qsymia, contrave, belviq and saxenda. All prescription medications could have side effects including but not limited to kidney stones, seizure disorder cardiac arrhythmias heart attack pancreatitis etc. etc.. Patient was encouraged to read the prescription insert and have coaching with their pharmacist and make an informed decision about taking medication and know that these medications are being prescribed with good intentions and we do not know how a patient would react to her medication. Sudden medications are FDA approved for weight loss and there is also off label use depending on patient's inability to afford medications in an attempt to lose weight D. Behavioral counseling was done to establish a relationship between food and an mood. Patient was provided information about local counseling and psychiatry and Dr Bell at [facility]. We would like to cover regular topics and build on low glycemic eating exercise mindful eating, using yoga and meditation along with deep breathing and connecting with friends and family. E. MASS PAT reviewed, Patient's current medications were reviewed and opinion was given on medication that can cause weight gain and can be substituted F. Patient was assessed for risk with obesity including and not limiting to atherosclerosis heart disease stroke kidney disease, restrictive lung disease, irritable bowel syndrome and overall mortality. Risk of developing prediabetes diabetes and metabolic syndrome was discussed G. Therapeutic plan: We have decided to make therapeutic plan which would include choosing wisely on calories restricting portion getting active, tracking weight, getting good quality sleep and working on time management H. Patient will follow up in (4) weeks for weight management Of note, some information is being carried forward from prior records for informational purposes only and is being cited so that efficiency, safety and quality of the patient's care is not compromised This note was prepared using voice recognition software and direct typing Please excuse inadvertent bevel polisher or typing errors, or uncorrected word substitutions Although every attempt has been made by the provider to proofread this document, occasional misspellings and typographical errors may still be present Due to the previous pandemic, and the use of personal protective equipment (PPE) This may decrease voice recognition accuracy Inadvertent bevel polisher errors may occur 12/19/2023 Erectile dysfunction, unspecified erectile dysfunction type (ICD-10 - N52.9) We will update comprehensive labs * Please obtain these Please follow-up with for your specialty referrals He will be referred for colorectal screening We will be referred for obstructive sleep apnea screening and CPAP titration We discussed weight management strategies and medications we will reexplore this on his physical He will be sent for nuclear medicine stress test given history and recent presentation Instructed to go to the ED if chest pain returns We will refer to rheumatology for generalized pain to rule out PMR and fibromyalgia etc. He will contact obstructive sleep apnea screening office to reinitiate this Total time spent today was 30 minutes [...] mentioned above and not solely appetite suppression. We have discussed the mechanism of GLP-1's/GIP I think this would be fantastic option for her given her metabolic workup and body composition We have discussed the risks and benefits and side effects including/and not limited to Sarcopenia, intestinal obstruction, constipation, nausea, lethargy, headache There is no history of medullary thyroid cancer or multiple endocrine neoplasia There is also no history of cardiovascular disease, hypertension, palpitations, or arrhythmias In the setting of potential stimulant/amphetami ne use such as phentermine Patient has been found to be obese with a BMI of (46). Patient has class 3() obesity. Patient was reassured and welcomed to the practice. We discussed that we stress a hollistic medical approach with emphasis on lifestyle modification. Patient was informed that a healthy lifestyle with exercise and good eating habits can help reduce his risk of medical complications. He is explained that obesity increases his risk of diabetes, cardiovascular disease, or organ damage. We spent a lot of time discussing the relationship between food, exercise, sleep, mental health and obesity. Patient was counseled on the importance EATING local, organic food when possible. Patient was educated on clean 15 and dirty dozen. I provided information about reading books called The Food Rules by René Leon and Eat Fat Get Lean by Dr Dwayne Anderson. Self education is important in the journey for weight management. Patient was offered diagnostic testing. We want to measure visceral adiposity, advanced body composition, adverse lipids, fatty acid balance, risk for heart disease and atherosclerosis, markers of inflammation and genetic susceptibility. Patient was counseled on weight management and was advised to lose weight using A. Meal Replacement Products Patient was educated on the replacement products called optifast. This is a good way of taking fixed amount of calories. It has been shown in studies to be ineffective weight management tool. This however has to be coupled with lifestyle intervention as well as laboratory data and EKG monitoring. It is impossible to know how a person will tolerate complete meal replacement. The side effects of meal replacement and weight loss could include syncopal attacks, dizziness, gallstones, potential cholecystectomy, possible heart attack and even . The benefits of meal replacement would be potential weight loss but no guarantees can be made. Meal replacement products are not covered by insurance. Once the patient has bought these products we cannot return them B. Lifestyle management which includes several strategies as below 1. Eat a low carbohydrate good fat good protein diet. Eliminate refined carbohydrates from the diet. Continue blood sugar and sugared beverages. Eat local organic when possible. Cook your own meals. Read food labels. None about healthy snacks. Portion control and food with low glycemic index 2. Exercise regularly. Try to get at least 6000 steps a day. Use a predominant to track activity level. Consider using apps like [employer], myfitnesspal, lose it, stick as needed for self-monitoring and weight management. Consider group exercises. Consider hiring a personal property appraiser. Regular exercise is hurst to sustainable health and prevents as a buffer against weight regain 3. Sleep is most important for healing. Tried to sleep at least 8 hours a night. A good quality sleep needs a sleep ritual with ideal room temperature of around 68. It might help to take a shower and have no electronics in the room and sleep in a very dark room without artificial light. Start her sleep routine and get up early in the morning and go to bed on time 4. Make a social connection. Surround yourself with positive people with positive energy. Connect with friends and family. 5. Get into the habit of meditating and mindfulness while doing everything. 6. Go outside and connect with nature. C. Prescription medications Patient was educated on the use of prescription medications for medical weight loss. This is a growing list and includes phentermine, Topamax,Qsymia, contrave, belviq and saxenda. All prescription medications could have side effects including but not limited to kidney stones, seizure disorder cardiac arrhythmias heart attack pancreatitis etc. etc.. Patient was encouraged to read the prescription insert and have coaching with their pharmacist and make an informed decision about taking medication and know that these medications are being prescribed with good intentions and we do not know how a patient would react to her medication. Sudden medications are FDA approved for weight loss and there is also off label use depending on patient's inability to afford medications in an attempt to lose weight D. Behavioral counseling was done to establish a relationship between food and an mood. Patient was provided information about local counseling and psychiatry and Dr Bell at [facility]. We would like to cover regular topics and build on low glycemic eating exercise mindful eating, using yoga and meditation along with deep breathing and connecting with friends and family. E. MASS PAT reviewed, Patient's current medications were reviewed and opinion was given on medication that can cause weight gain and can be substituted F. Patient was assessed for risk with obesity including and not limiting to atherosclerosis heart disease stroke kidney disease, restrictive lung disease, irritable bowel syndrome and overall mortality. Risk of developing prediabetes diabetes and metabolic syndrome was discussed G. Therapeutic plan: We have decided to make therapeutic plan which would include choosing wisely on calories restricting portion getting active, tracking weight, getting good quality sleep and working on time management H. Patient will follow up in (4) weeks for weight management Of note, some information is being carried forward from prior records for informational purposes only and is being cited so that efficiency, safety and quality of the patient's care is not compromised This note was prepared using voice recognition software and direct typing Please excuse inadvertent bevel polisher or typing errors, or uncorrected word substitutions Although every attempt has been made by the provider to proofread this document, occasional misspellings and typographical errors may still be present Due to the previous pandemic, and the use of personal protective equipment (PPE) This may decrease voice recognition accuracy Inadvertent bevel polisher errors may occur 12/19/2023 SONJA (obstructive sleep apnea) (ICD-10 - G47.33) We will update comprehensive labs * Please obtain these Please follow-up with for your specialty referrals He will be referred for colorectal screening We will be referred for obstructive sleep apnea screening and CPAP titration We discussed weight management strategies and medications we will reexplore this on his physical He will be sent for nuclear medicine stress test given history and recent presentation Instructed to go to the ED if chest pain returns We will refer to rheumatology for generalized pain to rule out PMR and fibromyalgia etc. He will contact obstructive sleep apnea screening office to reinitiate this Total time spent today was 30 minutes [...] mentioned above and not solely appetite suppression. We have discussed the mechanism of GLP-1's/GIP I think this would be fantastic option for her given her metabolic workup and body composition We have discussed the risks and benefits and side effects including/and not limited to Sarcopenia, intestinal obstruction, constipation, nausea, lethargy, headache There is no history of medullary thyroid cancer or multiple endocrine neoplasia There is also no history of cardiovascular disease, hypertension, palpitations, or arrhythmias In the setting of potential stimulant/amphetami ne use such as phentermine Patient has been found to be obese with a BMI of (46). Patient has class 3() obesity. Patient was reassured and welcomed to the practice. We discussed that we stress a hollistic medical approach with emphasis on lifestyle modification. Patient was informed that a healthy lifestyle with exercise and good eating habits can help reduce his risk of medical complications. He is explained that obesity increases his risk of diabetes, cardiovascular disease, or organ damage. We spent a lot of time discussing the relationship between food, exercise, sleep, mental health and obesity. Patient was counseled on the importance EATING local, organic food when possible. Patient was educated on clean 15 and dirty dozen. I provided information about reading books called The Food Rules by René Leon and Eat Fat Get Lean by Dr Dwayne Anderson. Self education is important in the journey for weight management. Patient was offered diagnostic testing. We want to measure visceral adiposity, advanced body composition, adverse lipids, fatty acid balance, risk for heart disease and atherosclerosis, markers of inflammation and genetic susceptibility. Patient was counseled on weight management and was advised to lose weight using A. Meal Replacement Products Patient was educated on the replacement products called optifast. This is a good way of taking fixed amount of calories. It has been shown in studies to be ineffective weight management tool. This however has to be coupled with lifestyle intervention as well as laboratory data and EKG monitoring. It is impossible to know how a person will tolerate complete meal replacement. The side effects of meal replacement and weight loss could include syncopal attacks, dizziness, gallstones, potential cholecystectomy, possible heart attack and even . The benefits of meal replacement would be potential weight loss but no guarantees can be made. Meal replacement products are not covered by insurance. Once the patient has bought these products we cannot return them B. Lifestyle management which includes several strategies as below 1. Eat a low carbohydrate good fat good protein diet. Eliminate refined carbohydrates from the diet. Continue blood sugar and sugared beverages. Eat local organic when possible. Cook your own meals. Read food labels. None about healthy snacks. Portion control and food with low glycemic index 2. Exercise regularly. Try to get at least 6000 steps a day. Use a predominant to track activity level. Consider using apps like [employer], [employer], lose it, stick as needed for self-monitoring and weight management. Consider group exercises. Consider hiring a personal property appraiser. Regular exercise is hurst to sustainable health and prevents as a buffer against weight regain 3. Sleep is most important for healing. Tried to sleep at least 8 hours a night. A good quality sleep needs a sleep ritual with ideal room temperature of around 68. It might help to take a shower and have no electronics in the room and sleep in a very dark room without artificial light. Start her sleep routine and get up early in the morning and go to bed on time 4. Make a social connection. Surround yourself with positive people with positive energy. Connect with friends and family. 5. Get into the habit of meditating and mindfulness while doing everything. 6. Go outside and connect with nature. C. Prescription medications Patient was educated on the use of prescription medications for medical weight loss. This is a growing list and includes phentermine, Topamax,Qsymia, contrave, belviq and saxenda. All prescription medications could have side effects including but not limited to kidney stones, seizure disorder cardiac arrhythmias heart attack pancreatitis etc. etc.. Patient was encouraged to read the prescription insert and have coaching with their pharmacist and make an informed decision about taking medication and know that these medications are being prescribed with good intentions and we do not know how a patient would react to her medication. Sudden medications are FDA approved for weight loss and there is also off label use depending on patient's inability to afford medications in an attempt to lose weight D. Behavioral counseling was done to establish a relationship between food and an mood. Patient was provided information about local counseling and psychiatry and Dr Bell at [facility]. We would like to cover regular topics and build on low glycemic eating exercise mindful eating, using yoga and meditation along with deep breathing and connecting with friends and family. E. MASS PAT reviewed, Patient's current medications were reviewed and opinion was given on medication that can cause weight gain and can be substituted F. Patient was assessed for risk with obesity including and not limiting to atherosclerosis heart disease stroke kidney disease, restrictive lung disease, irritable bowel syndrome and overall mortality. Risk of developing prediabetes diabetes and metabolic syndrome was discussed G. Therapeutic plan: We have decided to make therapeutic plan which would include choosing wisely on calories restricting portion getting active, tracking weight, getting good quality sleep and working on time management H. Patient will follow up in (4) weeks for weight management Of note, some information is being carried forward from prior records for informational purposes only and is being cited so that efficiency, safety and quality of the patient's care is not compromised This note was prepared using voice recognition software and direct typing Please excuse inadvertent bevel polisher or typing errors, or uncorrected word substitutions Although every attempt has been made by the provider to proofread this document, occasional misspellings and typographical errors may still be present Due to the previous pandemic, and the use of personal protective equipment (PPE) This may decrease voice recognition accuracy Inadvertent bevel polisher errors may occur 05/07/2024 Erectile dysfunction, unspecified erectile dysfunction type (ICD-10 - N52.9) Acute Concerns/Problem List: 05/07/2024 Will try for Wegovy GLP therapy Dual incretin was not approved Please follow-up with for your specialty referrals All of these referrals were done on our end He will be referred for colorectal screening, Number provided for [facility] We will be referred for obstructive sleep apnea screening and CPAP titration, Number provided for sleep medicine services We discussed weight management strategies and We will begins Tirzapetide/Zepboun d *He will be sent for nuclear medicine stress test given history and recent presentation, Number given to PVC Instructed to go to the ED if chest pain returns Total time spent today was 30 minutes [...] mentioned above and not solely appetite suppression. We have discussed the mechanism of GLP-1's/GIP I think this would be fantastic option for her given her metabolic workup and body composition We have discussed the risks and benefits and side effects including/and not limited to Sarcopenia, intestinal obstruction, constipation, nausea, lethargy, headache There is no history of medullary thyroid cancer or multiple endocrine neoplasia There is also no history of cardiovascular disease, hypertension, palpitations, or arrhythmias In the setting of potential stimulant/amphetami ne use such as phentermine Patient has been found to be obese with a BMI of (46). Patient has class 3obesity. Patient was reassured and welcomed to the practice. We discussed that we stress a hollistic medical approach with emphasis on lifestyle modification. Patient was informed that a healthy lifestyle with exercise and good eating habits can help reduce his risk of medical complications. He is explained that obesity increases his risk of diabetes, cardiovascular disease, or organ damage. We spent a lot of time discussing the relationship between food, exercise, sleep, mental health and obesity. Patient was counseled on the importance EATING local, organic food when possible. Patient was educated on clean 15 and dirty dozen. I provided information about reading books called The Food Rules by René Leon and Eat Fat Get Lean by Dr Dwayne Anderson. Self education is important in the journey for weight management. Patient was offered diagnostic testing. We want to measure visceral adiposity, advanced body composition, adverse lipids, fatty acid balance, risk for heart disease and atherosclerosis, markers of inflammation and genetic susceptibility. Patient was counseled on weight management and was advised to lose weight using A. Meal Replacement Products Patient was educated on the replacement products called optifast. This is a good way of taking fixed amount of calories. It has been shown in studies to be ineffective weight management tool. This however has to be coupled with lifestyle intervention as well as laboratory data and EKG monitoring. It is impossible to know how a person will tolerate complete meal replacement. The side effects of meal replacement and weight loss could include syncopal attacks, dizziness, gallstones, potential cholecystectomy, possible heart attack and even . The benefits of meal replacement would be potential weight loss but no guarantees can be made. Meal replacement products are not covered by insurance. Once the patient has bought these products we cannot return them B. Lifestyle management which includes several strategies as below 1. Eat a low carbohydrate good fat good protein diet. Eliminate refined carbohydrates from the diet. Continue blood sugar and sugared beverages. Eat local organic when possible. Cook your own meals. Read food labels. None about healthy snacks. Portion control and food with low glycemic index 2. Exercise regularly. Try to get at least 6000 steps a day. Use a predominant to track activity level. Consider using apps like [employer], [employer], lose it, stick as needed for self-monitoring and weight management. Consider group exercises. Consider hiring a personal property appraiser. Regular exercise is hurst to sustainable health and prevents as a buffer against weight regain 3. Sleep is most important for healing. Tried to sleep at least 8 hours a night. A good quality sleep needs a sleep ritual with ideal room temperature of around 68. It might help to take a shower and have no electronics in the room and sleep in a very dark room without artificial light. Start her sleep routine and get up early in the morning and go to bed on time 4. Make a social connection. Surround yourself with positive people with positive energy. Connect with friends and family. 5. Get into the habit of meditating and mindfulness while doing everything. 6. Go outside and connect with nature. C. Prescription medications Patient was educated on the use of prescription medications for medical weight loss. This is a growing list and includes phentermine, Topamax,Qsymia, contrave, belviq and saxenda. All prescription medications could have side effects including but not limited to kidney stones, seizure disorder cardiac arrhythmias heart attack pancreatitis etc. etc.. Patient was encouraged to read the prescription insert and have coaching with their pharmacist and make an informed decision about taking medication and know that these medications are being prescribed with good intentions and we do not know how a patient would react to her medication. Sudden medications are FDA approved for weight loss and there is also off label use depending on patient's inability to afford medications in an attempt to lose weight D. Behavioral counseling was done to establish a relationship between food and an mood. Patient was provided information about local counseling and psychiatry and Dr Bell at [employer]. We would like to cover regular topics and build on low glycemic eating exercise mindful eating, using yoga and meditation along with deep breathing and connecting with friends and family. E. MASS PAT reviewed, Patient's current medications were reviewed and opinion was given on medication that can cause weight gain and can be substituted F. Patient was assessed for risk with obesity including and not limiting to atherosclerosis heart disease stroke kidney disease, restrictive lung disease, irritable bowel syndrome and overall mortality. Risk of developing prediabetes diabetes and metabolic syndrome was discussed G. Therapeutic plan: We have decided to make therapeutic plan which would include choosing wisely on calories restricting portion getting active, tracking weight, getting good quality sleep and working on time management H. Patient will follow up in (4) weeks for weight management Of note, some information is being carried forward from prior records for informational purposes only and is being cited so that efficiency, safety and quality of the patient's care is not compromised This note was prepared using voice recognition software and direct typing Please excuse inadvertent bevel polisher or typing errors, or uncorrected word substitutions Although every attempt has been made by the provider to proofread this document, occasional misspellings and typographical errors may still be present Due to the previous pandemic, and the use of personal protective equipment (PPE) This may decrease voice recognition accuracy Inadvertent bevel polisher errors may occur 03/10/2024 Erectile dysfunction, unspecified erectile dysfunction type (ICD-10 - N52.9) Acute Concerns/Problem List: 03/10/2024 Hypogonadism workup Please follow-up with for your specialty referrals All of these referrals were done on our end He will be referred for colorectal screening, Number provided for [facility] We will be referred for obstructive sleep apnea screening and CPAP titration, Number provided for sleep medicine services We discussed weight management strategies and We will begins Tirzapetide/Zepboun d He will be sent for nuclear medicine stress test given history and recent presentation, Number given to PVC Instructed to go to the ED if chest pain returns We will refer to rheumatology for generalized pain to rule out PMR and fibromyalgia etc., Number given to [facility] Total time spent today was 30 minutes [...] mentioned above and not solely appetite suppression. We have discussed the mechanism of GLP-1's/GIP I think this would be fantastic option for her given her metabolic workup and body composition We have discussed the risks and benefits and side effects including/and not limited to Sarcopenia, intestinal obstruction, constipation, nausea, lethargy, headache There is no history of medullary thyroid cancer or multiple endocrine neoplasia There is also no history of cardiovascular disease, hypertension, palpitations, or arrhythmias In the setting of potential stimulant/amphetami ne use such as phentermine Patient has been found to be obese with a BMI of (46). Patient has class 3obesity. Patient was reassured and welcomed to the practice. We discussed that we stress a hollistic medical approach with emphasis on lifestyle modification. Patient was informed that a healthy lifestyle with exercise and good eating habits can help reduce his risk of medical complications. He is explained that obesity increases his risk of diabetes, cardiovascular disease, or organ damage. We spent a lot of time discussing the relationship between food, exercise, sleep, mental health and obesity. Patient was counseled on the importance EATING local, organic food when possible. Patient was educated on clean 15 and dirty dozen. I provided information about reading books called The Food Rules by René Leon and Eat Fat Get Lean by Dr Dwayne Anderson. Self education is important in the journey for weight management. Patient was offered diagnostic testing. We want to measure visceral adiposity, advanced body composition, adverse lipids, fatty acid balance, risk for heart disease and atherosclerosis, markers of inflammation and genetic susceptibility. Patient was counseled on weight management and was advised to lose weight using A. Meal Replacement Products Patient was educated on the replacement products called optifast. This is a good way of taking fixed amount of calories. It has been shown in studies to be ineffective weight management tool. This however has to be coupled with lifestyle intervention as well as laboratory data and EKG monitoring. It is impossible to know how a person will tolerate complete meal replacement. The side effects of meal replacement and weight loss could include syncopal attacks, dizziness, gallstones, potential cholecystectomy, possible heart attack and even . The benefits of meal replacement would be potential weight loss but no guarantees can be made. Meal replacement products are not covered by insurance. Once the patient has bought these products we cannot return them B. Lifestyle management which includes several strategies as below 1. Eat a low carbohydrate good fat good protein diet. Eliminate refined carbohydrates from the diet. Continue blood sugar and sugared beverages. Eat local organic when possible. Cook your own meals. Read food labels. None about healthy snacks. Portion control and food with low glycemic index 2. Exercise regularly. Try to get at least 6000 steps a day. Use a predominant to track activity level. Consider using apps like [employer], [employer], lose it, stick as needed for self-monitoring and weight management. Consider group exercises. Consider hiring a personal property appraiser. Regular exercise is hurst to sustainable health and prevents as a buffer against weight regain 3. Sleep is most important for healing. Tried to sleep at least 8 hours a night. A good quality sleep needs a sleep ritual with ideal room temperature of around 68. It might help to take a shower and have no electronics in the room and sleep in a very dark room without artificial light. Start her sleep routine and get up early in the morning and go to bed on time 4. Make a social connection. Surround yourself with positive people with positive energy. Connect with friends and family. 5. Get into the habit of meditating and mindfulness while doing everything. 6. Go outside and connect with nature. C. Prescription medications Patient was educated on the use of prescription medications for medical weight loss. This is a growing list and includes phentermine, Topamax,Qsymia, contrave, belviq and saxenda. All prescription medications could have side effects including but not limited to kidney stones, seizure disorder cardiac arrhythmias heart attack pancreatitis etc. etc.. Patient was encouraged to read the prescription insert and have coaching with their pharmacist and make an informed decision about taking medication and know that these medications are being prescribed with good intentions and we do not know how a patient would react to her medication. Sudden medications are FDA approved for weight loss and there is also off label use depending on patient's inability to afford medications in an attempt to lose weight D. Behavioral counseling was done to establish a relationship between food and an mood. Patient was provided information about local counseling and psychiatry and Dr Bell at [employer]. We would like to cover regular topics and build on low glycemic eating exercise mindful eating, using yoga and meditation along with deep breathing and connecting with friends and family. E. MASS PAT reviewed, Patient's current medications were reviewed and opinion was given on medication that can cause weight gain and can be substituted F. Patient was assessed for risk with obesity including and not limiting to atherosclerosis heart disease stroke kidney disease, restrictive lung disease, irritable bowel syndrome and overall mortality. Risk of developing prediabetes diabetes and metabolic syndrome was discussed G. Therapeutic plan: We have decided to make therapeutic plan which would include choosing wisely on calories restricting portion getting active, tracking weight, getting good quality sleep and working on time management H. Patient will follow up in (4) weeks for weight management Of note, some information is being carried forward from prior records for informational purposes only and is being cited so that efficiency, safety and quality of the patient's care is not compromised This note was prepared using voice recognition software and direct typing Please excuse inadvertent bevel polisher or typing errors, or uncorrected word substitutions Although every attempt has been made by the provider to proofread this document, occasional misspellings and typographical errors may still be present Due to the previous pandemic, and the use of personal protective equipment (PPE) This may decrease voice recognition accuracy Inadvertent bevel polisher errors may occur 07/07/2024 Erectile dysfunction, unspecified erectile dysfunction type (ICD-10 - N52.9) Acute Concerns/Problem List: 07/07/2024 Wegovy 0.25 mg, sent to [facility] specialty pharmacy Please follow-up with for your specialty referrals All of these referrals were done on our end He will be referred for colorectal screening, Number provided for [facility] We will be referred for obstructive sleep apnea screening and CPAP titration, Number provided for sleep medicine services We discussed weight management strategies and We will begins Tirzapetide/Zepboun d *He will be sent for nuclear medicine stress test @ given history and recent presentation, Number given to PVC Instructed to go to the ED if chest pain returns Total time spent today was 30 minutes [...] mentioned above and not solely appetite suppression. We have discussed the mechanism of GLP-1's/GIP I think this would be fantastic option for her given her metabolic workup and body composition We have discussed the risks and benefits and side effects including/and not limited to Sarcopenia, intestinal obstruction, constipation, nausea, lethargy, headache There is no history of medullary thyroid cancer or multiple endocrine neoplasia There is also no history of cardiovascular disease, hypertension, palpitations, or arrhythmias In the setting of potential stimulant/amphetami ne use such as phentermine Patient has been found to be obese with a BMI of (46). Patient has class 3obesity. Patient was reassured and welcomed to the practice. We discussed that we stress a hollistic medical approach with emphasis on lifestyle modification. Patient was informed that a healthy lifestyle with exercise and good eating habits can help reduce his risk of medical complications. He is explained that obesity increases his risk of diabetes, cardiovascular disease, or organ damage. We spent a lot of time discussing the relationship between food, exercise, sleep, mental health and obesity. Patient was counseled on the importance EATING local, organic food when possible. Patient was educated on clean 15 and dirty dozen. I provided information about reading books called The Food Rules by René Leon and Eat Fat Get Lean by Dr Dwayne Anderson. Self education is important in the journey for weight management. Patient was offered diagnostic testing. We want to measure visceral adiposity, advanced body composition, adverse lipids, fatty acid balance, risk for heart disease and atherosclerosis, markers of inflammation and genetic susceptibility. Patient was counseled on weight management and was advised to lose weight using A. Meal Replacement Products Patient was educated on the replacement products called optifast. This is a good way of taking fixed amount of calories. It has been shown in studies to be ineffective weight management tool. This however has to be coupled with lifestyle intervention as well as laboratory data and EKG monitoring. It is impossible to know how a person will tolerate complete meal replacement. The side effects of meal replacement and weight loss could include syncopal attacks, dizziness, gallstones, potential cholecystectomy, possible heart attack and even . The benefits of meal replacement would be potential weight loss but no guarantees can be made. Meal replacement products are not covered by insurance. Once the patient has bought these products we cannot return them B. Lifestyle management which includes several strategies as below 1. Eat a low carbohydrate good fat good protein diet. Eliminate refined carbohydrates from the diet. Continue blood sugar and sugared beverages. Eat local organic when possible. Cook your own meals. Read food labels. None about healthy snacks. Portion control and food with low glycemic index 2. Exercise regularly. Try to get at least 6000 steps a day. Use a predominant to track activity level. Consider using apps like [employer], [facility], lose it, stick as needed for self-monitoring and weight management. Consider group exercises. Consider hiring a personal property appraiser. Regular exercise is hurst to sustainable health and prevents as a buffer against weight regain 3. Sleep is most important for healing. Tried to sleep at least 8 hours a night. A good quality sleep needs a sleep ritual with ideal room temperature of around 68. It might help to take a shower and have no electronics in the room and sleep in a very dark room without artificial light. Start her sleep routine and get up early in the morning and go to bed on time 4. Make a social connection. Surround yourself with positive people with positive energy. Connect with friends and family. 5. Get into the habit of meditating and mindfulness while doing everything. 6. Go outside and connect with nature. C. Prescription medications Patient was educated on the use of prescription medications for medical weight loss. This is a growing list and includes phentermine, Topamax,Qsymia, contrave, belviq and saxenda. All prescription medications could have side effects including but not limited to kidney stones, seizure disorder cardiac arrhythmias heart attack pancreatitis etc. etc.. Patient was encouraged to read the prescription insert and have coaching with their pharmacist and make an informed decision about taking medication and know that these medications are being prescribed with good intentions and we do not know how a patient would react to her medication. Sudden medications are FDA approved for weight loss and there is also off label use depending on patient's inability to afford medications in an attempt to lose weight D. Behavioral counseling was done to establish a relationship between food and an mood. Patient was provided information about local counseling and psychiatry and Dr Bell at [facility]. We would like to cover regular topics and build on low glycemic eating exercise mindful eating, using yoga and meditation along with deep breathing and connecting with friends and family. E. MASS PAT reviewed, Patient's current medications were reviewed and opinion was given on medication that can cause weight gain and can be substituted F. Patient was assessed for risk with obesity including and not limiting to atherosclerosis heart disease stroke kidney disease, restrictive lung disease, irritable bowel syndrome and overall mortality. Risk of developing prediabetes diabetes and metabolic syndrome was discussed G. Therapeutic plan: We have decided to make therapeutic plan which would include choosing wisely on calories restricting portion getting active, tracking weight, getting good quality sleep and working on time management H. Patient will follow up in (4) weeks for weight management Of note, some information is being carried forward from prior records for informational purposes only and is being cited so that efficiency, safety and quality of the patient's care is not compromised This note was prepared using voice recognition software and direct typing Please excuse inadvertent bevel polisher or typing errors, or uncorrected word substitutions Although every attempt has been made by the provider to proofread this document, occasional misspellings and typographical errors may still be present Due to the previous pandemic, and the use of personal protective equipment (PPE) This may decrease voice recognition accuracy Inadvertent bevel polisher errors may occur 09/01/2024 Erectile dysfunction, unspecified erectile dysfunction type (ICD-10 - N52.9) Acute Concerns/Problem List: 09/01/2024 DCF paperwork was filled out today We have given him a starter pack of Wegovy 0.25 mg Tdap today Flu shot today Scheduled to see cardiology early October as well as gastroenterology next month For stress testing as well as colonoscopy Will refer to rheumatology at [facility] _update labs and CPE Total time [...] software and direct typing Please excuse inadvertent bevel polisher or typing errors, or uncorrected word substitutions Although every attempt has been made by the provider to proofread this document, occasional misspellings and typographical errors may still be present Due to the previous pandemic, and the use of personal protective equipment (PPE) This may decrease voice recognition accuracy Inadvertent bevel polisher errors may occur 09/01/2024 SONJA (obstructive sleep apnea) (ICD-10 - G47.33) Acute Concerns/Problem List: 09/01/2024 DCF paperwork was filled out today We have given him a starter pack of Wegovy 0.25 mg Tdap today Flu shot today Scheduled to see cardiology early October as well as gastroenterology next month For stress testing as well as colonoscopy Will refer to rheumatology at [facility] _update labs and CPE Total time [...] software and direct typing Please excuse inadvertent bevel polisher or typing errors, or uncorrected word substitutions Although every attempt has been made by the provider to proofread this document, occasional misspellings and typographical errors may still be present Due to the previous pandemic, and the use of personal protective equipment (PPE) This may decrease voice recognition accuracy Inadvertent bevel polisher errors may occur 07/07/2024 OSNJA (obstructive sleep apnea) (ICD-10 - G47.33) Acute Concerns/Problem List: 07/07/2024 Wegovy 0.25 mg, sent to [facility] specialty pharmacy Please follow-up with for your specialty referrals All of these referrals were done on our end He will be referred for colorectal screening, Number provided for GI We will be referred for obstructive sleep apnea screening and CPAP titration, Number provided for sleep medicine services We discussed weight management strategies and We will begins Tirzapetide/Zepboun d *He will be sent for nuclear medicine stress test @ given history and recent presentation, Number given to PVC Instructed to go to the ED if chest pain returns Total time spent today was 30 minutes [...] mentioned above and not solely appetite suppression. We have discussed the mechanism of GLP-1's/GIP I think this would be fantastic option for her given her metabolic workup and body composition We have discussed the risks and benefits and side effects including/and not limited to Sarcopenia, intestinal obstruction, constipation, nausea, lethargy, headache There is no history of medullary thyroid cancer or multiple endocrine neoplasia There is also no history of cardiovascular disease, hypertension, palpitations, or arrhythmias In the setting of potential stimulant/amphetami ne use such as phentermine Patient has been found to be obese with a BMI of (46). Patient has class 3obesity. Patient was reassured and welcomed to the practice. We discussed that we stress a hollistic medical approach with emphasis on lifestyle modification. Patient was informed that a healthy lifestyle with exercise and good eating habits can help reduce his risk of medical complications. He is explained that obesity increases his risk of diabetes, cardiovascular disease, or organ damage. We spent a lot of time discussing the relationship between food, exercise, sleep, mental health and obesity. Patient was counseled on the importance EATING local, organic food when possible. Patient was educated on clean 15 and dirty dozen. I provided information about reading books called The Food Rules by René Leon and Eat Fat Get Lean by Dr Dwayne Anderson. Self education is important in the journey for weight management. Patient was offered diagnostic testing. We want to measure visceral adiposity, advanced body composition, adverse lipids, fatty acid balance, risk for heart disease and atherosclerosis, markers of inflammation and genetic susceptibility. Patient was counseled on weight management and was advised to lose weight using A. Meal Replacement Products Patient was educated on the replacement products called optifast. This is a good way of taking fixed amount of calories. It has been shown in studies to be ineffective weight management tool. This however has to be coupled with lifestyle intervention as well as laboratory data and EKG monitoring. It is impossible to know how a person will tolerate complete meal replacement. The side effects of meal replacement and weight loss could include syncopal attacks, dizziness, gallstones, potential cholecystectomy, possible heart attack and even . The benefits of meal replacement would be potential weight loss but no guarantees can be made. Meal replacement products are not covered by insurance. Once the patient has bought these products we cannot return them B. Lifestyle management which includes several strategies as below 1. Eat a low carbohydrate good fat good protein diet. Eliminate refined carbohydrates from the diet. Continue blood sugar and sugared beverages. Eat local organic when possible. Cook your own meals. Read food labels. None about healthy snacks. Portion control and food with low glycemic index 2. Exercise regularly. Try to get at least 6000 steps a day. Use a predominant to track activity level. Consider using apps like [employer], [employer]fitnesspal, lose it, stick as needed for self-monitoring and weight management. Consider group exercises. Consider hiring a personal property appraiser. Regular exercise is hurst to sustainable health and prevents as a buffer against weight regain 3. Sleep is most important for healing. Tried to sleep at least 8 hours a night. A good quality sleep needs a sleep ritual with ideal room temperature of around 68. It might help to take a shower and have no electronics in the room and sleep in a very dark room without artificial light. Start her sleep routine and get up early in the morning and go to bed on time 4. Make a social connection. Surround yourself with positive people with positive energy. Connect with friends and family. 5. Get into the habit of meditating and mindfulness while doing everything. 6. Go outside and connect with nature. C. Prescription medications Patient was educated on the use of prescription medications for medical weight loss. This is a growing list and includes phentermine, Topamax,Qsymia, contrave, belviq and saxenda. All prescription medications could have side effects including but not limited to kidney stones, seizure disorder cardiac arrhythmias heart attack pancreatitis etc. etc.. Patient was encouraged to read the prescription insert and have coaching with their pharmacist and make an informed decision about taking medication and know that these medications are being prescribed with good intentions and we do not know how a patient would react to her medication. Sudden medications are FDA approved for weight loss and there is also off label use depending on patient's inability to afford medications in an attempt to lose weight D. Behavioral counseling was done to establish a relationship between food and an mood. Patient was provided information about local counseling and psychiatry and Dr Bell at [facility]. We would like to cover regular topics and build on low glycemic eating exercise mindful eating, using yoga and meditation along with deep breathing and connecting with friends and family. E. MASS PAT reviewed, Patient's current medications were reviewed and opinion was given on medication that can cause weight gain and can be substituted F. Patient was assessed for risk with obesity including and not limiting to atherosclerosis heart disease stroke kidney disease, restrictive lung disease, irritable bowel syndrome and overall mortality. Risk of developing prediabetes diabetes and metabolic syndrome was discussed G. Therapeutic plan: We have decided to make therapeutic plan which would include choosing wisely on calories restricting portion getting active, tracking weight, getting good quality sleep and working on time management H. Patient will follow up in (4) weeks for weight management Of note, some information is being carried forward from prior records for informational purposes only and is being cited so that efficiency, safety and quality of the patient's care is not compromised This note was prepared using voice recognition software and direct typing Please excuse inadvertent bevel polisher or typing errors, or uncorrected word substitutions Although every attempt has been made by the provider to proofread this document, occasional misspellings and typographical errors may still be present Due to the previous pandemic, and the use of personal protective equipment (PPE) This may decrease voice recognition accuracy Inadvertent bevel polisher errors may occur 03/10/2024 SONJA (obstructive sleep apnea) (ICD-10 - G47.33) Acute Concerns/Problem List: 03/10/2024 Hypogonadism workup Please follow-up with for your specialty referrals All of these referrals were done on our end He will be referred for colorectal screening, Number provided for [employer] We will be referred for obstructive sleep apnea screening and CPAP titration, Number provided for sleep medicine services We discussed weight management strategies and We will begins Tirzapetide/Zepboun d He will be sent for nuclear medicine stress test given history and recent presentation, Number given to PVC Instructed to go to the ED if chest pain returns We will refer to rheumatology for generalized pain to rule out PMR and fibromyalgia etc., Number given to [facility] Total time spent today was 30 minutes [...] mentioned above and not solely appetite suppression. We have discussed the mechanism of GLP-1's/GIP I think this would be fantastic option for her given her metabolic workup and body composition We have discussed the risks and benefits and side effects including/and not limited to Sarcopenia, intestinal obstruction, constipation, nausea, lethargy, headache There is no history of medullary thyroid cancer or multiple endocrine neoplasia There is also no history of cardiovascular disease, hypertension, palpitations, or arrhythmias In the setting of potential stimulant/amphetami ne use such as phentermine Patient has been found to be obese with a BMI of (46). Patient has class 3obesity. Patient was reassured and welcomed to the practice. We discussed that we stress a hollistic medical approach with emphasis on lifestyle modification. Patient was informed that a healthy lifestyle with exercise and good eating habits can help reduce his risk of medical complications. He is explained that obesity increases his risk of diabetes, cardiovascular disease, or organ damage. We spent a lot of time discussing the relationship between food, exercise, sleep, mental health and obesity. Patient was counseled on the importance EATING local, organic food when possible. Patient was educated on clean 15 and dirty dozen. I provided information about reading books called The Food Rules by René Leon and Eat Fat Get Lean by Dr Dwayne Anderson. Self education is important in the journey for weight management. Patient was offered diagnostic testing. We want to measure visceral adiposity, advanced body composition, adverse lipids, fatty acid balance, risk for heart disease and atherosclerosis, markers of inflammation and genetic susceptibility. Patient was counseled on weight management and was advised to lose weight using A. Meal Replacement Products Patient was educated on the replacement products called optifast. This is a good way of taking fixed amount of calories. It has been shown in studies to be ineffective weight management tool. This however has to be coupled with lifestyle intervention as well as laboratory data and EKG monitoring. It is impossible to know how a person will tolerate complete meal replacement. The side effects of meal replacement and weight loss could include syncopal attacks, dizziness, gallstones, potential cholecystectomy, possible heart attack and even . The benefits of meal replacement would be potential weight loss but no guarantees can be made. Meal replacement products are not covered by insurance. Once the patient has bought these products we cannot return them B. Lifestyle management which includes several strategies as below 1. Eat a low carbohydrate good fat good protein diet. Eliminate refined carbohydrates from the diet. Continue blood sugar and sugared beverages. Eat local organic when possible. Cook your own meals. Read food labels. None about healthy snacks. Portion control and food with low glycemic index 2. Exercise regularly. Try to get at least 6000 steps a day. Use a predominant to track activity level. Consider using apps like [employer], [facility], lose it, stick as needed for self-monitoring and weight management. Consider group exercises. Consider hiring a personal property appraiser. Regular exercise is hurst to sustainable health and prevents as a buffer against weight regain 3. Sleep is most important for healing. Tried to sleep at least 8 hours a night. A good quality sleep needs a sleep ritual with ideal room temperature of around 68. It might help to take a shower and have no electronics in the room and sleep in a very dark room without artificial light. Start her sleep routine and get up early in the morning and go to bed on time 4. Make a social connection. Surround yourself with positive people with positive energy. Connect with friends and family. 5. Get into the habit of meditating and mindfulness while doing everything. 6. Go outside and connect with nature. C. Prescription medications Patient was educated on the use of prescription medications for medical weight loss. This is a growing list and includes phentermine, Topamax,Qsymia, contrave, belviq and saxenda. All prescription medications could have side effects including but not limited to kidney stones, seizure disorder cardiac arrhythmias heart attack pancreatitis etc. etc.. Patient was encouraged to read the prescription insert and have coaching with their pharmacist and make an informed decision about taking medication and know that these medications are being prescribed with good intentions and we do not know how a patient would react to her medication. Sudden medications are FDA approved for weight loss and there is also off label use depending on patient's inability to afford medications in an attempt to lose weight D. Behavioral counseling was done to establish a relationship between food and an mood. Patient was provided information about local counseling and psychiatry and Dr Bell at [facility]. We would like to cover regular topics and build on low glycemic eating exercise mindful eating, using yoga and meditation along with deep breathing and connecting with friends and family. E. MASS PAT reviewed, Patient's current medications were reviewed and opinion was given on medication that can cause weight gain and can be substituted F. Patient was assessed for risk with obesity including and not limiting to atherosclerosis heart disease stroke kidney disease, restrictive lung disease, irritable bowel syndrome and overall mortality. Risk of developing prediabetes diabetes and metabolic syndrome was discussed G. Therapeutic plan: We have decided to make therapeutic plan which would include choosing wisely on calories restricting portion getting active, tracking weight, getting good quality sleep and working on time management H. Patient will follow up in (4) weeks for weight management Of note, some information is being carried forward from prior records for informational purposes only and is being cited so that efficiency, safety and quality of the patient's care is not compromised This note was prepared using voice recognition software and direct typing Please excuse inadvertent bevel polisher or typing errors, or uncorrected word substitutions Although every attempt has been made by the provider to proofread this document, occasional misspellings and typographical errors may still be present Due to the previous pandemic, and the use of personal protective equipment (PPE) This may decrease voice recognition accuracy Inadvertent bevel polisher errors may occur 05/07/2024 SONJA (obstructive sleep apnea) (ICD-10 - G47.33) Acute Concerns/Problem List: 05/07/2024 Will try for Wegovy GLP therapy Dual incretin was not approved Please follow-up with for your specialty referrals All of these referrals were done on our end He will be referred for colorectal screening, Number provided for [employer] We will be referred for obstructive sleep apnea screening and CPAP titration, Number provided for sleep medicine services We discussed weight management strategies and We will begins Tirzapetide/Zepboun d *He will be sent for nuclear medicine stress test given history and recent presentation, Number given to PVC Instructed to go to the ED if chest pain returns Total time spent today was 30 minutes [...] mentioned above and not solely appetite suppression. We have discussed the mechanism of GLP-1's/GIP I think this would be fantastic option for her given her metabolic workup and body composition We have discussed the risks and benefits and side effects including/and not limited to Sarcopenia, intestinal obstruction, constipation, nausea, lethargy, headache There is no history of medullary thyroid cancer or multiple endocrine neoplasia There is also no history of cardiovascular disease, hypertension, palpitations, or arrhythmias In the setting of potential stimulant/amphetami ne use such as phentermine Patient has been found to be obese with a BMI of (46). Patient has class 3obesity. Patient was reassured and welcomed to the practice. We discussed that we stress a hollistic medical approach with emphasis on lifestyle modification. Patient was informed that a healthy lifestyle with exercise and good eating habits can help reduce his risk of medical complications. He is explained that obesity increases his risk of diabetes, cardiovascular disease, or organ damage. We spent a lot of time discussing the relationship between food, exercise, sleep, mental health and obesity. Patient was counseled on the importance EATING local, organic food when possible. Patient was educated on clean 15 and dirty dozen. I provided information about reading books called The Food Rules by René Leon and Eat Fat Get Lean by Dr Dwayne Anderson. Self education is important in the journey for weight management. Patient was offered diagnostic testing. We want to measure visceral adiposity, advanced body composition, adverse lipids, fatty acid balance, risk for heart disease and atherosclerosis, markers of inflammation and genetic susceptibility. Patient was counseled on weight management and was advised to lose weight using A. Meal Replacement Products Patient was educated on the replacement products called optifast. This is a good way of taking fixed amount of calories. It has been shown in studies to be ineffective weight management tool. This however has to be coupled with lifestyle intervention as well as laboratory data and EKG monitoring. It is impossible to know how a person will tolerate complete meal replacement. The side effects of meal replacement and weight loss could include syncopal attacks, dizziness, gallstones, potential cholecystectomy, possible heart attack and even . The benefits of meal replacement would be potential weight loss but no guarantees can be made. Meal replacement products are not covered by insurance. Once the patient has bought these products we cannot return them B. Lifestyle management which includes several strategies as below 1. Eat a low carbohydrate good fat good protein diet. Eliminate refined carbohydrates from the diet. Continue blood sugar and sugared beverages. Eat local organic when possible. Cook your own meals. Read food labels. None about healthy snacks. Portion control and food with low glycemic index 2. Exercise regularly. Try to get at least 6000 steps a day. Use a predominant to track activity level. Consider using apps like [employer], [facility], lose it, stick as needed for self-monitoring and weight management. Consider group exercises. Consider hiring a personal property appraiser. Regular exercise is hurst to sustainable health and prevents as a buffer against weight regain 3. Sleep is most important for healing. Tried to sleep at least 8 hours a night. A good quality sleep needs a sleep ritual with ideal room temperature of around 68. It might help to take a shower and have no electronics in the room and sleep in a very dark room without artificial light. Start her sleep routine and get up early in the morning and go to bed on time 4. Make a social connection. Surround yourself with positive people with positive energy. Connect with friends and family. 5. Get into the habit of meditating and mindfulness while doing everything. 6. Go outside and connect with nature. C. Prescription medications Patient was educated on the use of prescription medications for medical weight loss. This is a growing list and includes phentermine, Topamax,Qsymia, contrave, belviq and saxenda. All prescription medications could have side effects including but not limited to kidney stones, seizure disorder cardiac arrhythmias heart attack pancreatitis etc. etc.. Patient was encouraged to read the prescription insert and have coaching with their pharmacist and make an informed decision about taking medication and know that these medications are being prescribed with good intentions and we do not know how a patient would react to her medication. Sudden medications are FDA approved for weight loss and there is also off label use depending on patient's inability to afford medications in an attempt to lose weight D. Behavioral counseling was done to establish a relationship between food and an mood. Patient was provided information about local counseling and psychiatry and Dr Bell at [facility]. We would like to cover regular topics and build on low glycemic eating exercise mindful eating, using yoga and meditation along with deep breathing and connecting with friends and family. E. MASS PAT reviewed, Patient's current medications were reviewed and opinion was given on medication that can cause weight gain and can be substituted F. Patient was assessed for risk with obesity including and not limiting to atherosclerosis heart disease stroke kidney disease, restrictive lung disease, irritable bowel syndrome and overall mortality. Risk of developing prediabetes diabetes and metabolic syndrome was discussed G. Therapeutic plan: We have decided to make therapeutic plan which would include choosing wisely on calories restricting portion getting active, tracking weight, getting good quality sleep and working on time management H. Patient will follow up in (4) weeks for weight management Of note, some information is being carried forward from prior records for informational purposes only and is being cited so that efficiency, safety and quality of the patient's care is not compromised This note was prepared using voice recognition software and direct typing Please excuse inadvertent bevel polisher or typing errors, or uncorrected word substitutions Although every attempt has been made by the provider to proofread this document, occasional misspellings and typographical errors may still be present Due to the previous pandemic, and the use of personal protective equipment (PPE) This may decrease voice recognition accuracy Inadvertent bevel polisher errors may occur 12/19/2023 Vitamin D deficiency, unspecified (ICD-10 - E55.9) We will update comprehensive labs * Please obtain these Please follow-up with for your specialty referrals He will be referred for colorectal screening We will be referred for obstructive sleep apnea screening and CPAP titration We discussed weight management strategies and medications we will reexplore this on his physical He will be sent for nuclear medicine stress test given history and recent presentation Instructed to go to the ED if chest pain returns We will refer to rheumatology for generalized pain to rule out PMR and fibromyalgia etc. He will contact obstructive sleep apnea screening office to reinitiate this Total time spent today was 30 minutes [...] mentioned above and not solely appetite suppression. We have discussed the mechanism of GLP-1's/GIP I think this would be fantastic option for her given her metabolic workup and body composition We have discussed the risks and benefits and side effects including/and not limited to Sarcopenia, intestinal obstruction, constipation, nausea, lethargy, headache There is no history of medullary thyroid cancer or multiple endocrine neoplasia There is also no history of cardiovascular disease, hypertension, palpitations, or arrhythmias In the setting of potential stimulant/amphetami ne use such as phentermine Patient has been found to be obese with a BMI of (46). Patient has class 3() obesity. Patient was reassured and welcomed to the practice. We discussed that we stress a hollistic medical approach with emphasis on lifestyle modification. Patient was informed that a healthy lifestyle with exercise and good eating habits can help reduce his risk of medical complications. He is explained that obesity increases his risk of diabetes, cardiovascular disease, or organ damage. We spent a lot of time discussing the relationship between food, exercise, sleep, mental health and obesity. Patient was counseled on the importance EATING local, organic food when possible. Patient was educated on clean 15 and dirty dozen. I provided information about reading books called The Food Rules by René Leon and Eat Fat Get Lean by Dr Dwayne Anderson. Self education is important in the journey for weight management. Patient was offered diagnostic testing. We want to measure visceral adiposity, advanced body composition, adverse lipids, fatty acid balance, risk for heart disease and atherosclerosis, markers of inflammation and genetic susceptibility. Patient was counseled on weight management and was advised to lose weight using A. Meal Replacement Products Patient was educated on the replacement products called optifast. This is a good way of taking fixed amount of calories. It has been shown in studies to be ineffective weight management tool. This however has to be coupled with lifestyle intervention as well as laboratory data and EKG monitoring. It is impossible to know how a person will tolerate complete meal replacement. The side effects of meal replacement and weight loss could include syncopal attacks, dizziness, gallstones, potential cholecystectomy, possible heart attack and even . The benefits of meal replacement would be potential weight loss but no guarantees can be made. Meal replacement products are not covered by insurance. Once the patient has bought these products we cannot return them B. Lifestyle management which includes several strategies as below 1. Eat a low carbohydrate good fat good protein diet. Eliminate refined carbohydrates from the diet. Continue blood sugar and sugared beverages. Eat local organic when possible. Cook your own meals. Read food labels. None about healthy snacks. Portion control and food with low glycemic index 2. Exercise regularly. Try to get at least 6000 steps a day. Use a predominant to track activity level. Consider using apps like Pharmly, [employer], lose it, stick as needed for self-monitoring and weight management. Consider group exercises. Consider hiring a personal property appraiser. Regular exercise is hurst to sustainable health and prevents as a buffer against weight regain 3. Sleep is most important for healing. Tried to sleep at least 8 hours a night. A good quality sleep needs a sleep ritual with ideal room temperature of around 68. It might help to take a shower and have no electronics in the room and sleep in a very dark room without artificial light. Start her sleep routine and get up early in the morning and go to bed on time 4. Make a social connection. Surround yourself with positive people with positive energy. Connect with friends and family. 5. Get into the habit of meditating and mindfulness while doing everything. 6. Go outside and connect with nature. C. Prescription medications Patient was educated on the use of prescription medications for medical weight loss. This is a growing list and includes phentermine, Topamax,Qsymia, contrave, belviq and saxenda. All prescription medications could have side effects including but not limited to kidney stones, seizure disorder cardiac arrhythmias heart attack pancreatitis etc. etc.. Patient was encouraged to read the prescription insert and have coaching with their pharmacist and make an informed decision about taking medication and know that these medications are being prescribed with good intentions and we do not know how a patient would react to her medication. Sudden medications are FDA approved for weight loss and there is also off label use depending on patient's inability to afford medications in an attempt to lose weight D. Behavioral counseling was done to establish a relationship between food and an mood. Patient was provided information about local counseling and psychiatry and Dr Bell at [facility]. We would like to cover regular topics and build on low glycemic eating exercise mindful eating, using yoga and meditation along with deep breathing and connecting with friends and family. E. MASS PAT reviewed, Patient's current medications were reviewed and opinion was given on medication that can cause weight gain and can be substituted F. Patient was assessed for risk with obesity including and not limiting to atherosclerosis heart disease stroke kidney disease, restrictive lung disease, irritable bowel syndrome and overall mortality. Risk of developing prediabetes diabetes and metabolic syndrome was discussed G. Therapeutic plan: We have decided to make therapeutic plan which would include choosing wisely on calories restricting portion getting active, tracking weight, getting good quality sleep and working on time management H. Patient will follow up in (4) weeks for weight management Of note, some information is being carried forward from prior records for informational purposes only and is being cited so that efficiency, safety and quality of the patient's care is not compromised This note was prepared using voice recognition software and direct typing Please excuse inadvertent bevel polisher or typing errors, or uncorrected word substitutions Although every attempt has been made by the provider to proofread this document, occasional misspellings and typographical errors may still be present Due to the previous pandemic, and the use of personal protective equipment (PPE) This may decrease voice recognition accuracy Inadvertent bevel polisher errors may occur 12/19/2023 Other chest pain (ICD-10 - R07.89) We will update comprehensive labs * Please obtain these Please follow-up with for your specialty referrals He will be referred for colorectal screening We will be referred for obstructive sleep apnea screening and CPAP titration We discussed weight management strategies and medications we will reexplore this on his physical He will be sent for nuclear medicine stress test given history and recent presentation Instructed to go to the ED if chest pain returns We will refer to rheumatology for generalized pain to rule out PMR and fibromyalgia etc. He will contact obstructive sleep apnea screening office to reinitiate this Total time spent today was 30 minutes [...] mentioned above and not solely appetite suppression. We have discussed the mechanism of GLP-1's/GIP I think this would be fantastic option for her given her metabolic workup and body composition We have discussed the risks and benefits and side effects including/and not limited to Sarcopenia, intestinal obstruction, constipation, nausea, lethargy, headache There is no history of medullary thyroid cancer or multiple endocrine neoplasia There is also no history of cardiovascular disease, hypertension, palpitations, or arrhythmias In the setting of potential stimulant/amphetami ne use such as phentermine Patient has been found to be obese with a BMI of (46). Patient has class 3() obesity. Patient was reassured and welcomed to the practice. We discussed that we stress a hollistic medical approach with emphasis on lifestyle modification. Patient was informed that a healthy lifestyle with exercise and good eating habits can help reduce his risk of medical complications. He is explained that obesity increases his risk of diabetes, cardiovascular disease, or organ damage. We spent a lot of time discussing the relationship between food, exercise, sleep, mental health and obesity. Patient was counseled on the importance EATING local, organic food when possible. Patient was educated on clean 15 and dirty dozen. I provided information about reading books called The Food Rules by René Leon and Eat Fat Get Lean by Dr Dwayne Anderson. Self education is important in the journey for weight management. Patient was offered diagnostic testing. We want to measure visceral adiposity, advanced body composition, adverse lipids, fatty acid balance, risk for heart disease and atherosclerosis, markers of inflammation and genetic susceptibility. Patient was counseled on weight management and was advised to lose weight using A. Meal Replacement Products Patient was educated on the replacement products called optifast. This is a good way of taking fixed amount of calories. It has been shown in studies to be ineffective weight management tool. This however has to be coupled with lifestyle intervention as well as laboratory data and EKG monitoring. It is impossible to know how a person will tolerate complete meal replacement. The side effects of meal replacement and weight loss could include syncopal attacks, dizziness, gallstones, potential cholecystectomy, possible heart attack and even . The benefits of meal replacement would be potential weight loss but no guarantees can be made. Meal replacement products are not covered by insurance. Once the patient has bought these products we cannot return them B. Lifestyle management which includes several strategies as below 1. Eat a low carbohydrate good fat good protein diet. Eliminate refined carbohydrates from the diet. Continue blood sugar and sugared beverages. Eat local organic when possible. Cook your own meals. Read food labels. None about healthy snacks. Portion control and food with low glycemic index 2. Exercise regularly. Try to get at least 6000 steps a day. Use a predominant to track activity level. Consider using apps like Pharmly, myfitnesspal, lose it, stick as needed for self-monitoring and weight management. Consider group exercises. Consider hiring a personal property appraiser. Regular exercise is hurst to sustainable health and prevents as a buffer against weight regain 3. Sleep is most important for healing. Tried to sleep at least 8 hours a night. A good quality sleep needs a sleep ritual with ideal room temperature of around 68. It might help to take a shower and have no electronics in the room and sleep in a very dark room without artificial light. Start her sleep routine and get up early in the morning and go to bed on time 4. Make a social connection. Surround yourself with positive people with positive energy. Connect with friends and family. 5. Get into the habit of meditating and mindfulness while doing everything. 6. Go outside and connect with nature. C. Prescription medications Patient was educated on the use of prescription medications for medical weight loss. This is a growing list and includes phentermine, Topamax,Qsymia, contrave, belviq and saxenda. All prescription medications could have side effects including but not limited to kidney stones, seizure disorder cardiac arrhythmias heart attack pancreatitis etc. etc.. Patient was encouraged to read the prescription insert and have coaching with their pharmacist and make an informed decision about taking medication and know that these medications are being prescribed with good intentions and we do not know how a patient would react to her medication. Sudden medications are FDA approved for weight loss and there is also off label use depending on patient's inability to afford medications in an attempt to lose weight D. Behavioral counseling was done to establish a relationship between food and an mood. Patient was provided information about local counseling and psychiatry and Dr Bell at [facility]. We would like to cover regular topics and build on low glycemic eating exercise mindful eating, using yoga and meditation along with deep breathing and connecting with friends and family. E. MASS PAT reviewed, Patient's current medications were reviewed and opinion was given on medication that can cause weight gain and can be substituted F. Patient was assessed for risk with obesity including and not limiting to atherosclerosis heart disease stroke kidney disease, restrictive lung disease, irritable bowel syndrome and overall mortality. Risk of developing prediabetes diabetes and metabolic syndrome was discussed G. Therapeutic plan: We have decided to make therapeutic plan which would include choosing wisely on calories restricting portion getting active, tracking weight, getting good quality sleep and working on time management H. Patient will follow up in (4) weeks for weight management Of note, some information is being carried forward from prior records for informational purposes only and is being cited so that efficiency, safety and quality of the patient's care is not compromised This note was prepared using voice recognition software and direct typing Please excuse inadvertent bevel polisher or typing errors, or uncorrected word substitutions Although every attempt has been made by the provider to proofread this document, occasional misspellings and typographical errors may still be present Due to the previous pandemic, and the use of personal protective equipment (PPE) This may decrease voice recognition accuracy Inadvertent bevel polisher errors may occur 03/10/2024 Vitamin D deficiency, unspecified (ICD-10 - E55.9) Acute Concerns/Problem List: 03/10/2024 Hypogonadism workup Please follow-up with for your specialty referrals All of these referrals were done on our end He will be referred for colorectal screening, Number provided for [facility] We will be referred for obstructive sleep apnea screening and CPAP titration, Number provided for sleep medicine services We discussed weight management strategies and We will begins Tirzapetide/Zepboun d He will be sent for nuclear medicine stress test given history and recent presentation, Number given to [facility] Instructed to go to the ED if chest pain returns We will refer to rheumatology for generalized pain to rule out PMR and fibromyalgia etc., Number given to [facility] Total time spent today was 30 minutes [...] mentioned above and not solely appetite suppression. We have discussed the mechanism of GLP-1's/GIP I think this would be fantastic option for her given her metabolic workup and body composition We have discussed the risks and benefits and side effects including/and not limited to Sarcopenia, intestinal obstruction, constipation, nausea, lethargy, headache There is no history of medullary thyroid cancer or multiple endocrine neoplasia There is also no history of cardiovascular disease, hypertension, palpitations, or arrhythmias In the setting of potential stimulant/amphetami ne use such as phentermine Patient has been found to be obese with a BMI of (46). Patient has class 3obesity. Patient was reassured and welcomed to the practice. We discussed that we stress a hollistic medical approach with emphasis on lifestyle modification. Patient was informed that a healthy lifestyle with exercise and good eating habits can help reduce his risk of medical complications. He is explained that obesity increases his risk of diabetes, cardiovascular disease, or organ damage. We spent a lot of time discussing the relationship between food, exercise, sleep, mental health and obesity. Patient was counseled on the importance EATING local, organic food when possible. Patient was educated on clean 15 and dirty dozen. I provided information about reading books called The Food Rules by René Leon and Eat Fat Get Lean by Dr Dwayne Anderson. Self education is important in the journey for weight management. Patient was offered diagnostic testing. We want to measure visceral adiposity, advanced body composition, adverse lipids, fatty acid balance, risk for heart disease and atherosclerosis, markers of inflammation and genetic susceptibility. Patient was counseled on weight management and was advised to lose weight using A. Meal Replacement Products Patient was educated on the replacement products called optifast. This is a good way of taking fixed amount of calories. It has been shown in studies to be ineffective weight management tool. This however has to be coupled with lifestyle intervention as well as laboratory data and EKG monitoring. It is impossible to know how a person will tolerate complete meal replacement. The side effects of meal replacement and weight loss could include syncopal attacks, dizziness, gallstones, potential cholecystectomy, possible heart attack and even . The benefits of meal replacement would be potential weight loss but no guarantees can be made. Meal replacement products are not covered by insurance. Once the patient has bought these products we cannot return them B. Lifestyle management which includes several strategies as below 1. Eat a low carbohydrate good fat good protein diet. Eliminate refined carbohydrates from the diet. Continue blood sugar and sugared beverages. Eat local organic when possible. Cook your own meals. Read food labels. None about healthy snacks. Portion control and food with low glycemic index 2. Exercise regularly. Try to get at least 6000 steps a day. Use a predominant to track activity level. Consider using apps like Pharmly, myfitnesspal, lose it, stick as needed for self-monitoring and weight management. Consider group exercises. Consider hiring a personal property appraiser. Regular exercise is hurst to sustainable health and prevents as a buffer against weight regain 3. Sleep is most important for healing. Tried to sleep at least 8 hours a night. A good quality sleep needs a sleep ritual with ideal room temperature of around 68. It might help to take a shower and have no electronics in the room and sleep in a very dark room without artificial light. Start her sleep routine and get up early in the morning and go to bed on time 4. Make a social connection. Surround yourself with positive people with positive energy. Connect with friends and family. 5. Get into the habit of meditating and mindfulness while doing everything. 6. Go outside and connect with nature. C. Prescription medications Patient was educated on the use of prescription medications for medical weight loss. This is a growing list and includes phentermine, Topamax,Qsymia, contrave, belviq and saxenda. All prescription medications could have side effects including but not limited to kidney stones, seizure disorder cardiac arrhythmias heart attack pancreatitis etc. etc.. Patient was encouraged to read the prescription insert and have coaching with their pharmacist and make an informed decision about taking medication and know that these medications are being prescribed with good intentions and we do not know how a patient would react to her medication. Sudden medications are FDA approved for weight loss and there is also off label use depending on patient's inability to afford medications in an attempt to lose weight D. Behavioral counseling was done to establish a relationship between food and an mood. Patient was provided information about local counseling and psychiatry and Dr Bell at [facility]. We would like to cover regular topics and build on low glycemic eating exercise mindful eating, using yoga and meditation along with deep breathing and connecting with friends and family. E. MASS PAT reviewed, Patient's current medications were reviewed and opinion was given on medication that can cause weight gain and can be substituted F. Patient was assessed for risk with obesity including and not limiting to atherosclerosis heart disease stroke kidney disease, restrictive lung disease, irritable bowel syndrome and overall mortality. Risk of developing prediabetes diabetes and metabolic syndrome was discussed G. Therapeutic plan: We have decided to make therapeutic plan which would include choosing wisely on calories restricting portion getting active, tracking weight, getting good quality sleep and working on time management H. Patient will follow up in (4) weeks for weight management Of note, some information is being carried forward from prior records for informational purposes only and is being cited so that efficiency, safety and quality of the patient's care is not compromised This note was prepared using voice recognition software and direct typing Please excuse inadvertent bevel polisher or typing errors, or uncorrected word substitutions Although every attempt has been made by the provider to proofread this document, occasional misspellings and typographical errors may still be present Due to the previous pandemic, and the use of personal protective equipment (PPE) This may decrease voice recognition accuracy Inadvertent bevel polisher errors may occur 05/07/2024 Other chest pain (ICD-10 - R07.89) Acute Concerns/Problem List: 05/07/2024 Will try for Wegovy GLP therapy Dual incretin was not approved Please follow-up with for your specialty referrals All of these referrals were done on our end He will be referred for colorectal screening, Number provided for [facility] We will be referred for obstructive sleep apnea screening and CPAP titration, Number provided for sleep medicine services We discussed weight management strategies and We will begins Tirzapetide/Zepboun d *He will be sent for nuclear medicine stress test given history and recent presentation, Number given to PVC Instructed to go to the ED if chest pain returns Total time spent today was 30 minutes [...] mentioned above and not solely appetite suppression. We have discussed the mechanism of GLP-1's/GIP I think this would be fantastic option for her given her metabolic workup and body composition We have discussed the risks and benefits and side effects including/and not limited to Sarcopenia, intestinal obstruction, constipation, nausea, lethargy, headache There is no history of medullary thyroid cancer or multiple endocrine neoplasia There is also no history of cardiovascular disease, hypertension, palpitations, or arrhythmias In the setting of potential stimulant/amphetami ne use such as phentermine Patient has been found to be obese with a BMI of (46). Patient has class 3obesity. Patient was reassured and welcomed to the practice. We discussed that we stress a hollistic medical approach with emphasis on lifestyle modification. Patient was informed that a healthy lifestyle with exercise and good eating habits can help reduce his risk of medical complications. He is explained that obesity increases his risk of diabetes, cardiovascular disease, or organ damage. We spent a lot of time discussing the relationship between food, exercise, sleep, mental health and obesity. Patient was counseled on the importance EATING local, organic food when possible. Patient was educated on clean 15 and dirty dozen. I provided information about reading books called The Food Rules by René Leon and Eat Fat Get Lean by Dr Dwayne Anderson. Self education is important in the journey for weight management. Patient was offered diagnostic testing. We want to measure visceral adiposity, advanced body composition, adverse lipids, fatty acid balance, risk for heart disease and atherosclerosis, markers of inflammation and genetic susceptibility. Patient was counseled on weight management and was advised to lose weight using A. Meal Replacement Products Patient was educated on the replacement products called optifast. This is a good way of taking fixed amount of calories. It has been shown in studies to be ineffective weight management tool. This however has to be coupled with lifestyle intervention as well as laboratory data and EKG monitoring. It is impossible to know how a person will tolerate complete meal replacement. The side effects of meal replacement and weight loss could include syncopal attacks, dizziness, gallstones, potential cholecystectomy, possible heart attack and even . The benefits of meal replacement would be potential weight loss but no guarantees can be made. Meal replacement products are not covered by insurance. Once the patient has bought these products we cannot return them B. Lifestyle management which includes several strategies as below 1. Eat a low carbohydrate good fat good protein diet. Eliminate refined carbohydrates from the diet. Continue blood sugar and sugared beverages. Eat local organic when possible. Cook your own meals. Read food labels. None about healthy snacks. Portion control and food with low glycemic index 2. Exercise regularly. Try to get at least 6000 steps a day. Use a predominant to track activity level. Consider using apps like [employer], [employer], lose it, stick as needed for self-monitoring and weight management. Consider group exercises. Consider hiring a personal property appraiser. Regular exercise is hurst to sustainable health and prevents as a buffer against weight regain 3. Sleep is most important for healing. Tried to sleep at least 8 hours a night. A good quality sleep needs a sleep ritual with ideal room temperature of around 68. It might help to take a shower and have no electronics in the room and sleep in a very dark room without artificial light. Start her sleep routine and get up early in the morning and go to bed on time 4. Make a social connection. Surround yourself with positive people with positive energy. Connect with friends and family. 5. Get into the habit of meditating and mindfulness while doing everything. 6. Go outside and connect with nature. C. Prescription medications Patient was educated on the use of prescription medications for medical weight loss. This is a growing list and includes phentermine, Topamax,Qsymia, contrave, belviq and saxenda. All prescription medications could have side effects including but not limited to kidney stones, seizure disorder cardiac arrhythmias heart attack pancreatitis etc. etc.. Patient was encouraged to read the prescription insert and have coaching with their pharmacist and make an informed decision about taking medication and know that these medications are being prescribed with good intentions and we do not know how a patient would react to her medication. Sudden medications are FDA approved for weight loss and there is also off label use depending on patient's inability to afford medications in an attempt to lose weight D. Behavioral counseling was done to establish a relationship between food and an mood. Patient was provided information about local counseling and psychiatry and Dr Bell at [facility]. We would like to cover regular topics and build on low glycemic eating exercise mindful eating, using yoga and meditation along with deep breathing and connecting with friends and family. E. MASS PAT reviewed, Patient's current medications were reviewed and opinion was given on medication that can cause weight gain and can be substituted F. Patient was assessed for risk with obesity including and not limiting to atherosclerosis heart disease stroke kidney disease, restrictive lung disease, irritable bowel syndrome and overall mortality. Risk of developing prediabetes diabetes and metabolic syndrome was discussed G. Therapeutic plan: We have decided to make therapeutic plan which would include choosing wisely on calories restricting portion getting active, tracking weight, getting good quality sleep and working on time management H. Patient will follow up in (4) weeks for weight management Of note, some information is being carried forward from prior records for informational purposes only and is being cited so that efficiency, safety and quality of the patient's care is not compromised This note was prepared using voice recognition software and direct typing Please excuse inadvertent bevel polisher or typing errors, or uncorrected word substitutions Although every attempt has been made by the provider to proofread this document, occasional misspellings and typographical errors may still be present Due to the previous pandemic, and the use of personal protective equipment (PPE) This may decrease voice recognition accuracy Inadvertent bevel polisher errors may occur 07/07/2024 Other chest pain (ICD-10 - R07.89) Acute Concerns/Problem List: 07/07/2024 Wegovy 0.25 mg, sent to [facility] specialty pharmacy Please follow-up with for your specialty referrals All of these referrals were done on our end He will be referred for colorectal screening, Number provided for GI We will be referred for obstructive sleep apnea screening and CPAP titration, Number provided for sleep medicine services We discussed weight management strategies and We will begins Tirzapetide/Zepboun d *He will be sent for nuclear medicine stress test @ given history and recent presentation, Number given to PVC Instructed to go to the ED if chest pain returns Total time spent today was 30 minutes [...] mentioned above and not solely appetite suppression. We have discussed the mechanism of GLP-1's/GIP I think this would be fantastic option for her given her metabolic workup and body composition We have discussed the risks and benefits and side effects including/and not limited to Sarcopenia, intestinal obstruction, constipation, nausea, lethargy, headache There is no history of medullary thyroid cancer or multiple endocrine neoplasia There is also no history of cardiovascular disease, hypertension, palpitations, or arrhythmias In the setting of potential stimulant/amphetami ne use such as phentermine Patient has been found to be obese with a BMI of (46). Patient has class 3obesity. Patient was reassured and welcomed to the practice. We discussed that we stress a hollistic medical approach with emphasis on lifestyle modification. Patient was informed that a healthy lifestyle with exercise and good eating habits can help reduce his risk of medical complications. He is explained that obesity increases his risk of diabetes, cardiovascular disease, or organ damage. We spent a lot of time discussing the relationship between food, exercise, sleep, mental health and obesity. Patient was counseled on the importance EATING local, organic food when possible. Patient was educated on clean 15 and dirty dozen. I provided information about reading books called The Food Rules by René Leon and Eat Fat Get Lean by Dr Dwayne Anderson. Self education is important in the journey for weight management. Patient was offered diagnostic testing. We want to measure visceral adiposity, advanced body composition, adverse lipids, fatty acid balance, risk for heart disease and atherosclerosis, markers of inflammation and genetic susceptibility. Patient was counseled on weight management and was advised to lose weight using A. Meal Replacement Products Patient was educated on the replacement products called optifast. This is a good way of taking fixed amount of calories. It has been shown in studies to be ineffective weight management tool. This however has to be coupled with lifestyle intervention as well as laboratory data and EKG monitoring. It is impossible to know how a person will tolerate complete meal replacement. The side effects of meal replacement and weight loss could include syncopal attacks, dizziness, gallstones, potential cholecystectomy, possible heart attack and even . The benefits of meal replacement would be potential weight loss but no guarantees can be made. Meal replacement products are not covered by insurance. Once the patient has bought these products we cannot return them B. Lifestyle management which includes several strategies as below 1. Eat a low carbohydrate good fat good protein diet. Eliminate refined carbohydrates from the diet. Continue blood sugar and sugared beverages. Eat local organic when possible. Cook your own meals. Read food labels. None about healthy snacks. Portion control and food with low glycemic index 2. Exercise regularly. Try to get at least 6000 steps a day. Use a predominant to track activity level. Consider using apps like [employer], [employer], lose it, stick as needed for self-monitoring and weight management. Consider group exercises. Consider hiring a personal property appraiser. Regular exercise is hurst to sustainable health and prevents as a buffer against weight regain 3. Sleep is most important for healing. Tried to sleep at least 8 hours a night. A good quality sleep needs a sleep ritual with ideal room temperature of around 68. It might help to take a shower and have no electronics in the room and sleep in a very dark room without artificial light. Start her sleep routine and get up early in the morning and go to bed on time 4. Make a social connection. Surround yourself with positive people with positive energy. Connect with friends and family. 5. Get into the habit of meditating and mindfulness while doing everything. 6. Go outside and connect with nature. C. Prescription medications Patient was educated on the use of prescription medications for medical weight loss. This is a growing list and includes phentermine, Topamax,Qsymia, contrave, belviq and saxenda. All prescription medications could have side effects including but not limited to kidney stones, seizure disorder cardiac arrhythmias heart attack pancreatitis etc. etc.. Patient was encouraged to read the prescription insert and have coaching with their pharmacist and make an informed decision about taking medication and know that these medications are being prescribed with good intentions and we do not know how a patient would react to her medication. Sudden medications are FDA approved for weight loss and there is also off label use depending on patient's inability to afford medications in an attempt to lose weight D. Behavioral counseling was done to establish a relationship between food and an mood. Patient was provided information about local counseling and psychiatry and Dr Bell at [employer] [employer] [facility]. We would like to cover regular topics and build on low glycemic eating exercise mindful eating, using yoga and meditation along with deep breathing and connecting with friends and family. E. MASS PAT reviewed, Patient's current medications were reviewed and opinion was given on medication that can cause weight gain and can be substituted F. Patient was assessed for risk with obesity including and not limiting to atherosclerosis heart disease stroke kidney disease, restrictive lung disease, irritable bowel syndrome and overall mortality. Risk of developing prediabetes diabetes and metabolic syndrome was discussed G. Therapeutic plan: We have decided to make therapeutic plan which would include choosing wisely on calories restricting portion getting active, tracking weight, getting good quality sleep and working on time management H. Patient will follow up in (4) weeks for weight management Of note, some information is being carried forward from prior records for informational purposes only and is being cited so that efficiency, safety and quality of the patient's care is not compromised This note was prepared using voice recognition software and direct typing Please excuse inadvertent bevel polisher or typing errors, or uncorrected word substitutions Although every attempt has been made by the provider to proofread this document, occasional misspellings and typographical errors may still be present Due to the previous pandemic, and the use of personal protective equipment (PPE) This may decrease voice recognition accuracy Inadvertent bevel polisher errors may occur 09/01/2024 Other chest pain (ICD-10 - R07.89) Acute Concerns/Problem List: 09/01/2024 DCF paperwork was filled out today We have given him a starter pack of Wegovy 0.25 mg Tdap today Flu shot today Scheduled to see cardiology early October as well as gastroenterology next month For stress testing as well as colonoscopy Will refer to rheumatology at [facility] _update labs and CPE Total time [...] software and direct typing Please excuse inadvertent bevel polisher or typing errors, or uncorrected word substitutions Although every attempt has been made by the provider to proofread this document, occasional misspellings and typographical errors may still be present Due to the previous pandemic, and the use of personal protective equipment (PPE) This may decrease voice recognition accuracy Inadvertent bevel polisher errors may occur 07/07/2024 Arthralgia of multiple joints (ICD-10 - M25.50) Acute Concerns/Problem List: 07/07/2024 Wegovy 0.25 mg, sent to [facility] specialty pharmacy Please follow-up with for your specialty referrals All of these referrals were done on our end He will be referred for colorectal screening, Number provided for GI We will be referred for obstructive sleep apnea screening and CPAP titration, Number provided for sleep medicine services We discussed weight management strategies and We will begins Tirzapetide/Zepboun d *He will be sent for nuclear medicine stress test @ given history and recent presentation, Number given to PVC Instructed to go to the ED if chest pain returns Total time spent today was 30 minutes [...] mentioned above and not solely appetite suppression. We have discussed the mechanism of GLP-1's/GIP I think this would be fantastic option for her given her metabolic workup and body composition We have discussed the risks and benefits and side effects including/and not limited to Sarcopenia, intestinal obstruction, constipation, nausea, lethargy, headache There is no history of medullary thyroid cancer or multiple endocrine neoplasia There is also no history of cardiovascular disease, hypertension, palpitations, or arrhythmias In the setting of potential stimulant/amphetami ne use such as phentermine Patient has been found to be obese with a BMI of (46). Patient has class 3obesity. Patient was reassured and welcomed to the practice. We discussed that we stress a hollistic medical approach with emphasis on lifestyle modification. Patient was informed that a healthy lifestyle with exercise and good eating habits can help reduce his risk of medical complications. He is explained that obesity increases his risk of diabetes, cardiovascular disease, or organ damage. We spent a lot of time discussing the relationship between food, exercise, sleep, mental health and obesity. Patient was counseled on the importance EATING local, organic food when possible. Patient was educated on clean 15 and dirty dozen. I provided information about reading books called The Food Rules by René Leon and Eat Fat Get Lean by Dr Dwayne Anderson. Self education is important in the journey for weight management. Patient was offered diagnostic testing. We want to measure visceral adiposity, advanced body composition, adverse lipids, fatty acid balance, risk for heart disease and atherosclerosis, markers of inflammation and genetic susceptibility. Patient was counseled on weight management and was advised to lose weight using A. Meal Replacement Products Patient was educated on the replacement products called optifast. This is a good way of taking fixed amount of calories. It has been shown in studies to be ineffective weight management tool. This however has to be coupled with lifestyle intervention as well as laboratory data and EKG monitoring. It is impossible to know how a person will tolerate complete meal replacement. The side effects of meal replacement and weight loss could include syncopal attacks, dizziness, gallstones, potential cholecystectomy, possible heart attack and even . The benefits of meal replacement would be potential weight loss but no guarantees can be made. Meal replacement products are not covered by insurance. Once the patient has bought these products we cannot return them B. Lifestyle management which includes several strategies as below 1. Eat a low carbohydrate good fat good protein diet. Eliminate refined carbohydrates from the diet. Continue blood sugar and sugared beverages. Eat local organic when possible. Cook your own meals. Read food labels. None about healthy snacks. Portion control and food with low glycemic index 2. Exercise regularly. Try to get at least 6000 steps a day. Use a predominant to track activity level. Consider using apps like [employer], [employer], lose it, stick as needed for self-monitoring and weight management. Consider group exercises. Consider hiring a personal property appraiser. Regular exercise is hurst to sustainable health and prevents as a buffer against weight regain 3. Sleep is most important for healing. Tried to sleep at least 8 hours a night. A good quality sleep needs a sleep ritual with ideal room temperature of around 68. It might help to take a shower and have no electronics in the room and sleep in a very dark room without artificial light. Start her sleep routine and get up early in the morning and go to bed on time 4. Make a social connection. Surround yourself with positive people with positive energy. Connect with friends and family. 5. Get into the habit of meditating and mindfulness while doing everything. 6. Go outside and connect with nature. C. Prescription medications Patient was educated on the use of prescription medications for medical weight loss. This is a growing list and includes phentermine, Topamax,Qsymia, contrave, belviq and saxenda. All prescription medications could have side effects including but not limited to kidney stones, seizure disorder cardiac arrhythmias heart attack pancreatitis etc. etc.. Patient was encouraged to read the prescription insert and have coaching with their pharmacist and make an informed decision about taking medication and know that these medications are being prescribed with good intentions and we do not know how a patient would react to her medication. Sudden medications are FDA approved for weight loss and there is also off label use depending on patient's inability to afford medications in an attempt to lose weight D. Behavioral counseling was done to establish a relationship between food and an mood. Patient was provided information about local counseling and psychiatry and Dr Bell at [employer]. We would like to cover regular topics and build on low glycemic eating exercise mindful eating, using yoga and meditation along with deep breathing and connecting with friends and family. E. MASS PAT reviewed, Patient's current medications were reviewed and opinion was given on medication that can cause weight gain and can be substituted F. Patient was assessed for risk with obesity including and not limiting to atherosclerosis heart disease stroke kidney disease, restrictive lung disease, irritable bowel syndrome and overall mortality. Risk of developing prediabetes diabetes and metabolic syndrome was discussed G. Therapeutic plan: We have decided to make therapeutic plan which would include choosing wisely on calories restricting portion getting active, tracking weight, getting good quality sleep and working on time management H. Patient will follow up in (4) weeks for weight management Of note, some information is being carried forward from prior records for informational purposes only and is being cited so that efficiency, safety and quality of the patient's care is not compromised This note was prepared using voice recognition software and direct typing Please excuse inadvertent bevel polisher or typing errors, or uncorrected word substitutions Although every attempt has been made by the provider to proofread this document, occasional misspellings and typographical errors may still be present Due to the previous pandemic, and the use of personal protective equipment (PPE) This may decrease voice recognition accuracy Inadvertent bevel polisher errors may occur 09/01/2024 Arthralgia of multiple joints (ICD-10 - M25.50) Acute Concerns/Problem List: 09/01/2024 DCF paperwork was filled out today We have given him a starter pack of Wegovy 0.25 mg Tdap today Flu shot today Scheduled to see cardiology early October as well as gastroenterology next month For stress testing as well as colonoscopy Will refer to rheumatology at [facility] _update labs and CPE Total time [...] software and direct typing Please excuse inadvertent bevel polisher or typing errors, or uncorrected word substitutions Although every attempt has been made by the provider to proofread this document, occasional misspellings and typographical errors may still be present Due to the previous pandemic, and the use of personal protective equipment (PPE) This may decrease voice recognition accuracy Inadvertent bevel polisher errors may occur 05/07/2024 Arthralgia of multiple joints (ICD-10 - M25.50) Acute Concerns/Problem List: 05/07/2024 Will try for Wegovy GLP therapy Dual incretin was not approved Please follow-up with for your specialty referrals All of these referrals were done on our end He will be referred for colorectal screening, Number provided for [facility] We will be referred for obstructive sleep apnea screening and CPAP titration, Number provided for sleep medicine services We discussed weight management strategies and We will begins Tirzapetide/Zepboun d *He will be sent for nuclear medicine stress test given history and recent presentation, Number given to PVC Instructed to go to the ED if chest pain returns Total time spent today was 30 minutes [...] mentioned above and not solely appetite suppression. We have discussed the mechanism of GLP-1's/GIP I think this would be fantastic option for her given her metabolic workup and body composition We have discussed the risks and benefits and side effects including/and not limited to Sarcopenia, intestinal obstruction, constipation, nausea, lethargy, headache There is no history of medullary thyroid cancer or multiple endocrine neoplasia There is also no history of cardiovascular disease, hypertension, palpitations, or arrhythmias In the setting of potential stimulant/amphetami ne use such as phentermine Patient has been found to be obese with a BMI of (46). Patient has class 3obesity. Patient was reassured and welcomed to the practice. We discussed that we stress a hollistic medical approach with emphasis on lifestyle modification. Patient was informed that a healthy lifestyle with exercise and good eating habits can help reduce his risk of medical complications. He is explained that obesity increases his risk of diabetes, cardiovascular disease, or organ damage. We spent a lot of time discussing the relationship between food, exercise, sleep, mental health and obesity. Patient was counseled on the importance EATING local, organic food when possible. Patient was educated on clean 15 and dirty dozen. I provided information about reading books called The Food Rules by René Leon and Eat Fat Get Lean by Dr Dwayne Anderson. Self education is important in the journey for weight management. Patient was offered diagnostic testing. We want to measure visceral adiposity, advanced body composition, adverse lipids, fatty acid balance, risk for heart disease and atherosclerosis, markers of inflammation and genetic susceptibility. Patient was counseled on weight management and was advised to lose weight using A. Meal Replacement Products Patient was educated on the replacement products called optifast. This is a good way of taking fixed amount of calories. It has been shown in studies to be ineffective weight management tool. This however has to be coupled with lifestyle intervention as well as laboratory data and EKG monitoring. It is impossible to know how a person will tolerate complete meal replacement. The side effects of meal replacement and weight loss could include syncopal attacks, dizziness, gallstones, potential cholecystectomy, possible heart attack and even . The benefits of meal replacement would be potential weight loss but no guarantees can be made. Meal replacement products are not covered by insurance. Once the patient has bought these products we cannot return them B. Lifestyle management which includes several strategies as below 1. Eat a low carbohydrate good fat good protein diet. Eliminate refined carbohydrates from the diet. Continue blood sugar and sugared beverages. Eat local organic when possible. Cook your own meals. Read food labels. None about healthy snacks. Portion control and food with low glycemic index 2. Exercise regularly. Try to get at least 6000 steps a day. Use a predominant to track activity level. Consider using apps like Pharm[employer], [employer], lose it, stick as needed for self-monitoring and weight management. Consider group exercises. Consider hiring a personal property appraiser. Regular exercise is hurst to sustainable health and prevents as a buffer against weight regain 3. Sleep is most important for healing. Tried to sleep at least 8 hours a night. A good quality sleep needs a sleep ritual with ideal room temperature of around 68. It might help to take a shower and have no electronics in the room and sleep in a very dark room without artificial light. Start her sleep routine and get up early in the morning and go to bed on time 4. Make a social connection. Surround yourself with positive people with positive energy. Connect with friends and family. 5. Get into the habit of meditating and mindfulness while doing everything. 6. Go outside and connect with nature. C. Prescription medications Patient was educated on the use of prescription medications for medical weight loss. This is a growing list and includes phentermine, Topamax,Qsymia, contrave, belviq and saxenda. All prescription medications could have side effects including but not limited to kidney stones, seizure disorder cardiac arrhythmias heart attack pancreatitis etc. etc.. Patient was encouraged to read the prescription insert and have coaching with their pharmacist and make an informed decision about taking medication and know that these medications are being prescribed with good intentions and we do not know how a patient would react to her medication. Sudden medications are FDA approved for weight loss and there is also off label use depending on patient's inability to afford medications in an attempt to lose weight D. Behavioral counseling was done to establish a relationship between food and an mood. Patient was provided information about local counseling and psychiatry and Dr Bell at [facility]. We would like to cover regular topics and build on low glycemic eating exercise mindful eating, using yoga and meditation along with deep breathing and connecting with friends and family. E. MASS PAT reviewed, Patient's current medications were reviewed and opinion was given on medication that can cause weight gain and can be substituted F. Patient was assessed for risk with obesity including and not limiting to atherosclerosis heart disease stroke kidney disease, restrictive lung disease, irritable bowel syndrome and overall mortality. Risk of developing prediabetes diabetes and metabolic syndrome was discussed G. Therapeutic plan: We have decided to make therapeutic plan which would include choosing wisely on calories restricting portion getting active, tracking weight, getting good quality sleep and working on time management H. Patient will follow up in (4) weeks for weight management Of note, some information is being carried forward from prior records for informational purposes only and is being cited so that efficiency, safety and quality of the patient's care is not compromised This note was prepared using voice recognition software and direct typing Please excuse inadvertent bevel polisher or typing errors, or uncorrected word substitutions Although every attempt has been made by the provider to proofread this document, occasional misspellings and typographical errors may still be present Due to the previous pandemic, and the use of personal protective equipment (PPE) This may decrease voice recognition accuracy Inadvertent bevel polisher errors may occur 03/10/2024 Other chest pain (ICD-10 - R07.89) Acute Concerns/Problem List: 03/10/2024 Hypogonadism workup Please follow-up with for your specialty referrals All of these referrals were done on our end He will be referred for colorectal screening, Number provided for [facility] We will be referred for obstructive sleep apnea screening and CPAP titration, Number provided for sleep medicine services We discussed weight management strategies and We will begins Tirzapetide/Zepboun d He will be sent for nuclear medicine stress test given history and recent presentation, Number given to PVC Instructed to go to the ED if chest pain returns We will refer to rheumatology for generalized pain to rule out PMR and fibromyalgia etc., Number given to [facility] Total time spent today was 30 minutes [...] mentioned above and not solely appetite suppression. We have discussed the mechanism of GLP-1's/GIP I think this would be fantastic option for her given her metabolic workup and body composition We have discussed the risks and benefits and side effects including/and not limited to Sarcopenia, intestinal obstruction, constipation, nausea, lethargy, headache There is no history of medullary thyroid cancer or multiple endocrine neoplasia There is also no history of cardiovascular disease, hypertension, palpitations, or arrhythmias In the setting of potential stimulant/amphetami ne use such as phentermine Patient has been found to be obese with a BMI of (46). Patient has class 3obesity. Patient was reassured and welcomed to the practice. We discussed that we stress a hollistic medical approach with emphasis on lifestyle modification. Patient was informed that a healthy lifestyle with exercise and good eating habits can help reduce his risk of medical complications. He is explained that obesity increases his risk of diabetes, cardiovascular disease, or organ damage. We spent a lot of time discussing the relationship between food, exercise, sleep, mental health and obesity. Patient was counseled on the importance EATING local, organic food when possible. Patient was educated on clean 15 and dirty dozen. I provided information about reading books called The Food Rules by René Leon and Eat Fat Get Lean by Dr Dwayne Anderson. Self education is important in the journey for weight management. Patient was offered diagnostic testing. We want to measure visceral adiposity, advanced body composition, adverse lipids, fatty acid balance, risk for heart disease and atherosclerosis, markers of inflammation and genetic susceptibility. Patient was counseled on weight management and was advised to lose weight using A. Meal Replacement Products Patient was educated on the replacement products called optifast. This is a good way of taking fixed amount of calories. It has been shown in studies to be ineffective weight management tool. This however has to be coupled with lifestyle intervention as well as laboratory data and EKG monitoring. It is impossible to know how a person will tolerate complete meal replacement. The side effects of meal replacement and weight loss could include syncopal attacks, dizziness, gallstones, potential cholecystectomy, possible heart attack and even . The benefits of meal replacement would be potential weight loss but no guarantees can be made. Meal replacement products are not covered by insurance. Once the patient has bought these products we cannot return them B. Lifestyle management which includes several strategies as below 1. Eat a low carbohydrate good fat good protein diet. Eliminate refined carbohydrates from the diet. Continue blood sugar and sugared beverages. Eat local organic when possible. Cook your own meals. Read food labels. None about healthy snacks. Portion control and food with low glycemic index 2. Exercise regularly. Try to get at least 6000 steps a day. Use a predominant to track activity level. Consider using apps like [employer], [employer], lose it, stick as needed for self-monitoring and weight management. Consider group exercises. Consider hiring a personal property appraiser. Regular exercise is hurst to sustainable health and prevents as a buffer against weight regain 3. Sleep is most important for healing. Tried to sleep at least 8 hours a night. A good quality sleep needs a sleep ritual with ideal room temperature of around 68. It might help to take a shower and have no electronics in the room and sleep in a very dark room without artificial light. Start her sleep routine and get up early in the morning and go to bed on time 4. Make a social connection. Surround yourself with positive people with positive energy. Connect with friends and family. 5. Get into the habit of meditating and mindfulness while doing everything. 6. Go outside and connect with nature. C. Prescription medications Patient was educated on the use of prescription medications for medical weight loss. This is a growing list and includes phentermine, Topamax,Qsymia, contrave, belviq and saxenda. All prescription medications could have side effects including but not limited to kidney stones, seizure disorder cardiac arrhythmias heart attack pancreatitis etc. etc.. Patient was encouraged to read the prescription insert and have coaching with their pharmacist and make an informed decision about taking medication and know that these medications are being prescribed with good intentions and we do not know how a patient would react to her medication. Sudden medications are FDA approved for weight loss and there is also off label use depending on patient's inability to afford medications in an attempt to lose weight D. Behavioral counseling was done to establish a relationship between food and an mood. Patient was provided information about local counseling and psychiatry and Dr Bell at [facility]. We would like to cover regular topics and build on low glycemic eating exercise mindful eating, using yoga and meditation along with deep breathing and connecting with friends and family. E. MASS PAT reviewed, Patient's current medications were reviewed and opinion was given on medication that can cause weight gain and can be substituted F. Patient was assessed for risk with obesity including and not limiting to atherosclerosis heart disease stroke kidney disease, restrictive lung disease, irritable bowel syndrome and overall mortality. Risk of developing prediabetes diabetes and metabolic syndrome was discussed G. Therapeutic plan: We have decided to make therapeutic plan which would include choosing wisely on calories restricting portion getting active, tracking weight, getting good quality sleep and working on time management H. Patient will follow up in (4) weeks for weight management Of note, some information is being carried forward from prior records for informational purposes only and is being cited so that efficiency, safety and quality of the patient's care is not compromised This note was prepared using voice recognition software and direct typing Please excuse inadvertent bevel polisher or typing errors, or uncorrected word substitutions Although every attempt has been made by the provider to proofread this document, occasional misspellings and typographical errors may still be present Due to the previous pandemic, and the use of personal protective equipment (PPE) This may decrease voice recognition accuracy Inadvertent bevel polisher errors may occur 12/19/2023 Arthralgia of multiple joints (ICD-10 - M25.50) We will update comprehensive labs * Please obtain these Please follow-up with for your specialty referrals He will be referred for colorectal screening We will be referred for obstructive sleep apnea screening and CPAP titration We discussed weight management strategies and medications we will reexplore this on his physical He will be sent for nuclear medicine stress test given history and recent presentation Instructed to go to the ED if chest pain returns We will refer to rheumatology for generalized pain to rule out PMR and fibromyalgia etc. He will contact obstructive sleep apnea screening office to reinitiate this Total time spent today was 30 minutes [...] mentioned above and not solely appetite suppression. We have discussed the mechanism of GLP-1's/GIP I think this would be fantastic option for her given her metabolic workup and body composition We have discussed the risks and benefits and side effects including/and not limited to Sarcopenia, intestinal obstruction, constipation, nausea, lethargy, headache There is no history of medullary thyroid cancer or multiple endocrine neoplasia There is also no history of cardiovascular disease, hypertension, palpitations, or arrhythmias In the setting of potential stimulant/amphetami ne use such as phentermine Patient has been found to be obese with a BMI of (46). Patient has class 3() obesity. Patient was reassured and welcomed to the practice. We discussed that we stress a hollistic medical approach with emphasis on lifestyle modification. Patient was informed that a healthy lifestyle with exercise and good eating habits can help reduce his risk of medical complications. He is explained that obesity increases his risk of diabetes, cardiovascular disease, or organ damage. We spent a lot of time discussing the relationship between food, exercise, sleep, mental health and obesity. Patient was counseled on the importance EATING local, organic food when possible. Patient was educated on clean 15 and dirty dozen. I provided information about reading books called The Food Rules by René Leon and Eat Fat Get Lean by Dr Dwayne Anderson. Self education is important in the journey for weight management. Patient was offered diagnostic testing. We want to measure visceral adiposity, advanced body composition, adverse lipids, fatty acid balance, risk for heart disease and atherosclerosis, markers of inflammation and genetic susceptibility. Patient was counseled on weight management and was advised to lose weight using A. Meal Replacement Products Patient was educated on the replacement products called optifast. This is a good way of taking fixed amount of calories. It has been shown in studies to be ineffective weight management tool. This however has to be coupled with lifestyle intervention as well as laboratory data and EKG monitoring. It is impossible to know how a person will tolerate complete meal replacement. The side effects of meal replacement and weight loss could include syncopal attacks, dizziness, gallstones, potential cholecystectomy, possible heart attack and even . The benefits of meal replacement would be potential weight loss but no guarantees can be made. Meal replacement products are not covered by insurance. Once the patient has bought these products we cannot return them B. Lifestyle management which includes several strategies as below 1. Eat a low carbohydrate good fat good protein diet. Eliminate refined carbohydrates from the diet. Continue blood sugar and sugared beverages. Eat local organic when possible. Cook your own meals. Read food labels. None about healthy snacks. Portion control and food with low glycemic index 2. Exercise regularly. Try to get at least 6000 steps a day. Use a predominant to track activity level. Consider using apps like Pharm[employer], [employer], lose it, stick as needed for self-monitoring and weight management. Consider group exercises. Consider hiring a personal property appraiser. Regular exercise is hurst to sustainable health and prevents as a buffer against weight regain 3. Sleep is most important for healing. Tried to sleep at least 8 hours a night. A good quality sleep needs a sleep ritual with ideal room temperature of around 68. It might help to take a shower and have no electronics in the room and sleep in a very dark room without artificial light. Start her sleep routine and get up early in the morning and go to bed on time 4. Make a social connection. Surround yourself with positive people with positive energy. Connect with friends and family. 5. Get into the habit of meditating and mindfulness while doing everything. 6. Go outside and connect with nature. C. Prescription medications Patient was educated on the use of prescription medications for medical weight loss. This is a growing list and includes phentermine, Topamax,Qsymia, contrave, belviq and saxenda. All prescription medications could have side effects including but not limited to kidney stones, seizure disorder cardiac arrhythmias heart attack pancreatitis etc. etc.. Patient was encouraged to read the prescription insert and have coaching with their pharmacist and make an informed decision about taking medication and know that these medications are being prescribed with good intentions and we do not know how a patient would react to her medication. Sudden medications are FDA approved for weight loss and there is also off label use depending on patient's inability to afford medications in an attempt to lose weight D. Behavioral counseling was done to establish a relationship between food and an mood. Patient was provided information about local counseling and psychiatry and Dr Bell at [facility] [facility] [employer]. We would like to cover regular topics and build on low glycemic eating exercise mindful eating, using yoga and meditation along with deep breathing and connecting with friends and family. E. MASS PAT reviewed, Patient's current medications were reviewed and opinion was given on medication that can cause weight gain and can be substituted F. Patient was assessed for risk with obesity including and not limiting to atherosclerosis heart disease stroke kidney disease, restrictive lung disease, irritable bowel syndrome and overall mortality. Risk of developing prediabetes diabetes and metabolic syndrome was discussed G. Therapeutic plan: We have decided to make therapeutic plan which would include choosing wisely on calories restricting portion getting active, tracking weight, getting good quality sleep and working on time management H. Patient will follow up in (4) weeks for weight management Of note, some information is being carried forward from prior records for informational purposes only and is being cited so that efficiency, safety and quality of the patient's care is not compromised This note was prepared using voice recognition software and direct typing Please excuse inadvertent bevel polisher or typing errors, or uncorrected word substitutions Although every attempt has been made by the provider to proofread this document, occasional misspellings and typographical errors may still be present Due to the previous pandemic, and the use of personal protective equipment (PPE) This may decrease voice recognition accuracy Inadvertent bevel polisher errors may occur 03/10/2024 Arthralgia of multiple joints (ICD-10 - M25.50) Acute Concerns/Problem List: 03/10/2024 Hypogonadism workup Please follow-up with for your specialty referrals All of these referrals were done on our end He will be referred for colorectal screening, Number provided for [facility] We will be referred for obstructive sleep apnea screening and CPAP titration, Number provided for sleep medicine services We discussed weight management strategies and We will begins Tirzapetide/Zepboun d He will be sent for nuclear medicine stress test given history and recent presentation, Number given to PVC Instructed to go to the ED if chest pain returns We will refer to rheumatology for generalized pain to rule out PMR and fibromyalgia etc., Number given to [facility] Total time spent today was 30 minutes [...] mentioned above and not solely appetite suppression. We have discussed the mechanism of GLP-1's/GIP I think this would be fantastic option for her given her metabolic workup and body composition We have discussed the risks and benefits and side effects including/and not limited to Sarcopenia, intestinal obstruction, constipation, nausea, lethargy, headache There is no history of medullary thyroid cancer or multiple endocrine neoplasia There is also no history of cardiovascular disease, hypertension, palpitations, or arrhythmias In the setting of potential stimulant/amphetami ne use such as phentermine Patient has been found to be obese with a BMI of (46). Patient has class 3obesity. Patient was reassured and welcomed to the practice. We discussed that we stress a hollistic medical approach with emphasis on lifestyle modification. Patient was informed that a healthy lifestyle with exercise and good eating habits can help reduce his risk of medical complications. He is explained that obesity increases his risk of diabetes, cardiovascular disease, or organ damage. We spent a lot of time discussing the relationship between food, exercise, sleep, mental health and obesity. Patient was counseled on the importance EATING local, organic food when possible. Patient was educated on clean 15 and dirty dozen. I provided information about reading books called The Food Rules by René Pollen and Eat Fat Get Lean by Dr Dwayne Anderson. Self education is important in the journey for weight management. Patient was offered diagnostic testing. We want to measure visceral adiposity, advanced body composition, adverse lipids, fatty acid balance, risk for heart disease and atherosclerosis, markers of inflammation and genetic susceptibility. Patient was counseled on weight management and was advised to lose weight using A. Meal Replacement Products Patient was educated on the replacement products called optifast. This is a good way of taking fixed amount of calories. It has been shown in studies to be ineffective weight management tool. This however has to be coupled with lifestyle intervention as well as laboratory data and EKG monitoring. It is impossible to know how a person will tolerate complete meal replacement. The side effects of meal replacement and weight loss could include syncopal attacks, dizziness, gallstones, potential cholecystectomy, possible heart attack and even . The benefits of meal replacement would be potential weight loss but no guarantees can be made. Meal replacement products are not covered by insurance. Once the patient has bought these products we cannot return them B. Lifestyle management which includes several strategies as below 1. Eat a low carbohydrate good fat good protein diet. Eliminate refined carbohydrates from the diet. Continue blood sugar and sugared beverages. Eat local organic when possible. Cook your own meals. Read food labels. None about healthy snacks. Portion control and food with low glycemic index 2. Exercise regularly. Try to get at least 6000 steps a day. Use a predominant to track activity level. Consider using apps like Pharmly, myfitnesspal, lose it, stick as needed for self-monitoring and weight management. Consider group exercises. Consider hiring a personal property appraiser. Regular exercise is hurst to sustainable health and prevents as a buffer against weight regain 3. Sleep is most important for healing. Tried to sleep at least 8 hours a night. A good quality sleep needs a sleep ritual with ideal room temperature of around 68. It might help to take a shower and have no electronics in the room and sleep in a very dark room without artificial light. Start her sleep routine and get up early in the morning and go to bed on time 4. Make a social connection. Surround yourself with positive people with positive energy. Connect with friends and family. 5. Get into the habit of meditating and mindfulness while doing everything. 6. Go outside and connect with nature. C. Prescription medications Patient was educated on the use of prescription medications for medical weight loss. This is a growing list and includes phentermine, Topamax,Qsymia, contrave, belviq and saxenda. All prescription medications could have side effects including but not limited to kidney stones, seizure disorder cardiac arrhythmias heart attack pancreatitis etc. etc.. Patient was encouraged to read the prescription insert and have coaching with their pharmacist and make an informed decision about taking medication and know that these medications are being prescribed with good intentions and we do not know how a patient would react to her medication. Sudden medications are FDA approved for weight loss and there is also off label use depending on patient's inability to afford medications in an attempt to lose weight D. Behavioral counseling was done to establish a relationship between food and an mood. Patient was provided information about local counseling and psychiatry and Dr Bell at [facility]. We would like to cover regular topics and build on low glycemic eating exercise mindful eating, using yoga and meditation along with deep breathing and connecting with friends and family. E. MASS PAT reviewed, Patient's current medications were reviewed and opinion was given on medication that can cause weight gain and can be substituted F. Patient was assessed for risk with obesity including and not limiting to atherosclerosis heart disease stroke kidney disease, restrictive lung disease, irritable bowel syndrome and overall mortality. Risk of developing prediabetes diabetes and metabolic syndrome was discussed G. Therapeutic plan: We have decided to make therapeutic plan which would include choosing wisely on calories restricting portion getting active, tracking weight, getting good quality sleep and working on time management H. Patient will follow up in (4) weeks for weight management Of note, some information is being carried forward from prior records for informational purposes only and is being cited so that efficiency, safety and quality of the patient's care is not compromised This note was prepared using voice recognition software and direct typing Please excuse inadvertent bevel polisher or typing errors, or uncorrected word substitutions Although every attempt has been made by the provider to proofread this document, occasional misspellings and typographical errors may still be present Due to the previous pandemic, and the use of personal protective equipment (PPE) This may decrease voice recognition accuracy Inadvertent bevel polisher errors may occur 07/07/2024 SERNA (dyspnea on exertion) (ICD-10 - R06.09) Acute Concerns/Problem List: 07/07/2024 Wegovy 0.25 mg, sent to [facility] specialty pharmacy Please follow-up with for your specialty referrals All of these referrals were done on our end He will be referred for colorectal screening, Number provided for GI We will be referred for obstructive sleep apnea screening and CPAP titration, Number provided for sleep medicine services We discussed weight management strategies and We will begins Tirzapetide/Zepboun d *He will be sent for nuclear medicine stress test @ given history and recent presentation, Number given to [facility] Instructed to go to the ED if chest pain returns Total time spent today was 30 minutes [...] mentioned above and not solely appetite suppression. We have discussed the mechanism of GLP-1's/GIP I think this would be fantastic option for her given her metabolic workup and body composition We have discussed the risks and benefits and side effects including/and not limited to Sarcopenia, intestinal obstruction, constipation, nausea, lethargy, headache There is no history of medullary thyroid cancer or multiple endocrine neoplasia There is also no history of cardiovascular disease, hypertension, palpitations, or arrhythmias In the setting of potential stimulant/amphetami ne use such as phentermine Patient has been found to be obese with a BMI of (46). Patient has class 3obesity. Patient was reassured and welcomed to the practice. We discussed that we stress a hollistic medical approach with emphasis on lifestyle modification. Patient was informed that a healthy lifestyle with exercise and good eating habits can help reduce his risk of medical complications. He is explained that obesity increases his risk of diabetes, cardiovascular disease, or organ damage. We spent a lot of time discussing the relationship between food, exercise, sleep, mental health and obesity. Patient was counseled on the importance EATING local, organic food when possible. Patient was educated on clean 15 and dirty dozen. I provided information about reading books called The Food Rules by René Leon and Eat Fat Get Lean by Dr Dwayne Anderson. Self education is important in the journey for weight management. Patient was offered diagnostic testing. We want to measure visceral adiposity, advanced body composition, adverse lipids, fatty acid balance, risk for heart disease and atherosclerosis, markers of inflammation and genetic susceptibility. Patient was counseled on weight management and was advised to lose weight using A. Meal Replacement Products Patient was educated on the replacement products called optifast. This is a good way of taking fixed amount of calories. It has been shown in studies to be ineffective weight management tool. This however has to be coupled with lifestyle intervention as well as laboratory data and EKG monitoring. It is impossible to know how a person will tolerate complete meal replacement. The side effects of meal replacement and weight loss could include syncopal attacks, dizziness, gallstones, potential cholecystectomy, possible heart attack and even . The benefits of meal replacement would be potential weight loss but no guarantees can be made. Meal replacement products are not covered by insurance. Once the patient has bought these products we cannot return them B. Lifestyle management which includes several strategies as below 1. Eat a low carbohydrate good fat good protein diet. Eliminate refined carbohydrates from the diet. Continue blood sugar and sugared beverages. Eat local organic when possible. Cook your own meals. Read food labels. None about healthy snacks. Portion control and food with low glycemic index 2. Exercise regularly. Try to get at least 6000 steps a day. Use a predominant to track activity level. Consider using apps like Pharmly, [employer], lose it, stick as needed for self-monitoring and weight management. Consider group exercises. Consider hiring a personal property appraiser. Regular exercise is hurst to sustainable health and prevents as a buffer against weight regain 3. Sleep is most important for healing. Tried to sleep at least 8 hours a night. A good quality sleep needs a sleep ritual with ideal room temperature of around 68. It might help to take a shower and have no electronics in the room and sleep in a very dark room without artificial light. Start her sleep routine and get up early in the morning and go to bed on time 4. Make a social connection. Surround yourself with positive people with positive energy. Connect with friends and family. 5. Get into the habit of meditating and mindfulness while doing everything. 6. Go outside and connect with nature. C. Prescription medications Patient was educated on the use of prescription medications for medical weight loss. This is a growing list and includes phentermine, Topamax,Qsymia, contrave, belviq and saxenda. All prescription medications could have side effects including but not limited to kidney stones, seizure disorder cardiac arrhythmias heart attack pancreatitis etc. etc.. Patient was encouraged to read the prescription insert and have coaching with their pharmacist and make an informed decision about taking medication and know that these medications are being prescribed with good intentions and we do not know how a patient would react to her medication. Sudden medications are FDA approved for weight loss and there is also off label use depending on patient's inability to afford medications in an attempt to lose weight D. Behavioral counseling was done to establish a relationship between food and an mood. Patient was provided information about local counseling and psychiatry and Dr Bell at [facility]. We would like to cover regular topics and build on low glycemic eating exercise mindful eating, using yoga and meditation along with deep breathing and connecting with friends and family. E. MASS PAT reviewed, Patient's current medications were reviewed and opinion was given on medication that can cause weight gain and can be substituted F. Patient was assessed for risk with obesity including and not limiting to atherosclerosis heart disease stroke kidney disease, restrictive lung disease, irritable bowel syndrome and overall mortality. Risk of developing prediabetes diabetes and metabolic syndrome was discussed G. Therapeutic plan: We have decided to make therapeutic plan which would include choosing wisely on calories restricting portion getting active, tracking weight, getting good quality sleep and working on time management H. Patient will follow up in (4) weeks for weight management Of note, some information is being carried forward from prior records for informational purposes only and is being cited so that efficiency, safety and quality of the patient's care is not compromised This note was prepared using voice recognition software and direct typing Please excuse inadvertent bevel polisher or typing errors, or uncorrected word substitutions Although every attempt has been made by the provider to proofread this document, occasional misspellings and typographical errors may still be present Due to the previous pandemic, and the use of personal protective equipment (PPE) This may decrease voice recognition accuracy Inadvertent bevel polisher errors may occur 09/01/2024 SERNA (dyspnea on exertion) (ICD-10 - R06.09) Acute Concerns/Problem List: 09/01/2024 DCF paperwork was filled out today We have given him a starter pack of Wegovy 0.25 mg Tdap today Flu shot today Scheduled to see cardiology early October as well as gastroenterology next month For stress testing as well as colonoscopy Will refer to rheumatology at [facility] _update labs and CPE Total time [...] software and direct typing Please excuse inadvertent bevel polisher or typing errors, or uncorrected word substitutions Although every attempt has been made by the provider to proofread this document, occasional misspellings and typographical errors may still be present Due to the previous pandemic, and the use of personal protective equipment (PPE) This may decrease voice recognition accuracy Inadvertent bevel polisher errors may occur 09/01/2024 Encounter for immunization (ICD-10 - Z23) Acute Concerns/Problem List: 09/01/2024 DCF paperwork was filled out today We have given him a starter pack of Wegovy 0.25 mg Tdap today Flu shot today Scheduled to see cardiology early October as well as gastroenterology next month For stress testing as well as colonoscopy Will refer to rheumatology at [facility] _update labs and CPE Total time [...] software and direct typing Please excuse inadvertent bevel polisher or typing errors, or uncorrected word substitutions Although every attempt has been made by the provider to proofread this document, occasional misspellings and typographical errors may still be present Due to the previous pandemic, and the use of personal protective equipment (PPE) This may decrease voice recognition accuracy Inadvertent bevel polisher errors may occur PLAN OF TREATMENT Pending Test Test Name Order Date Ultrasound : Scrotum 09/11/2023 Urine toxicology 07/19/2021 Exercise Stress Nuclear Test 10/30/2023 CBC (COMPLETE BLOOD COUNT) 12/26/2020 COMPREHENSIVE METABOLIC PANEL 12/26/2020 HEMOGLOBIN A1C 12/26/2020 LIPID PANEL 12/26/2020 PSA, SCREEN 09/01/2024 SEX HORMONE BINDING GLOBULIN (SHBG) 02/12 ToxASSURE (R) Select 13 (Prescription Dr ug Monitoring Screen) 07/19/2021 XR Chest 2 Views 07/19/2021 XR Chest 2 Views 07/19/2021 LIPID PANEL, STANDARD 09/01/2024 COMPREHENSIVE METABOLIC PANEL 09/01/2024 CBC (INCLUDES DIFF/PLT) 09/01/2024 URINALYSIS, COMPLETE 09/01/2024 HEMOGLOBIN A1c 09/01/2024 FSH 03/10/2024 LH 03/10/2024 TSH 09/01/2024 VITAMIN D,25-OH,TOTAL,IA 09/01/2024 TESTOSTERONE, FREE (DIALYSIS) AND TOTAL, MS 03/10/2024 COMPLETE URINALYSIS 12/26/2020 Future Test Test Name Order Date 25OH VITAMIN D 06/19/2023 CBC (COMPLETE BLOOD COUNT) WITH DIFF 03/2023 COMPREHENSIVE METABOLIC PANEL 06/19/2023 HEMOGLOBIN A1C 06/19/2023 LIPID PANEL 06/19/2023 TSH WITH REFLEX TO FT4 06/19/2023 URINALYSIS W/REFLEX CULTURE 06/19/2023 INSULIN LEVEL 06/19/2023 Insurance Providers Payer Name Payer Address Payer Phone Subscriber Number Group Number Insured Name Patient Relationship to Insured Coverage Start Date Coverage End Date [employer] [address] [place] [address] [phone] [id number] Gamaliel Vargas Self - patient is the insured [facility] and [facility] [address] [place] [address] [phone] [id number] Gamaliel Vargas Self - patient is the insured 4 MEDICAL (GENERAL) HISTORY Medical History History ICD Code obesity
--- OUTSIDE RECORDS SUMMARY | 2024-12-15 16:02 | XMS_ITS | Patient Health Record ---
[facility] [place] Address [address] [place] [address] Care Team Providers Care Ball Sorter Name Role Phone Magda Rivas Primary Care Provider UnavailYaritza Bledsoe Unavailable [phone] Allergies No Known Allergies Results Component Value Reference Range Notes X ray : Foot, right 3V Reviewed date:01/08/2024 01:06:28 PM Interpretation:See Examination above Performing Lab: Notes/Report: See Examination above Reason For Referral No Information Medications Medication SIG (Take, Route, Frequency, Duration) Notes Start Date End Date Status Ciclopirox Olamine 0.77 % 1 application Externally Twice a day for 30 days Active Night Splint AFO - L1930 1 wear when at rest for 30 days Active Social History Tobacco [...] Problem Status W/U Status Risk Notes Problem Mononeuropathy of lower limb (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) Neuritis of left foot (G57.92) Active 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 Vital Signs Height 5 ft 6 in in 01/08/2024 Weight 280 lbs 01/08/2024 BMI 45.19 kg/m2 01/08/2024 Encounters Encounter Location Date Provider [facility] [address] [address] 01/08/2024 Yaritza Cordero Achilles tendinitis of right [...] M79.674 and Pain in left toe(s) M79.675 [facility] [address] [address] 02/28/2024 Yaritza Cordero Assessments Encounter Date Diagnosis (ICD Code) Assessment Notes Treatment Notes Treatment Clinical Notes Section Notes 01/08/2024 Pain of right heel (ICD-10 - M79.671) 01/08/2024 Achilles tendinitis of right lower extremity (ICD-10 - M76.61) Patient Educated with: HEEL CORD STRETCHES.pdf (HEEL CORD STRETCHES.pdf) Patient Educated with: RICE THERAPY.pdf (RICE THERAPY.pdf) 01/08/2024 Exostosis of right posterior calcaneus (ICD-10 [...] toe(s) (ICD-10 - M79.675) Plan Of Treatment Pending Test Test Name Order Date *Liver Function Test (LFT) 01/08/2024 Insurance Providers Payer Name Payer Address Payer Phone Subscriber Number Group Number Insured Name Patient Relationship to Insured Coverage Start Date Coverage End Date [facility] [address] [place] [address] [id number] Gamaliel Vargas Self - patient is the insured Medical (General) History Medical History History ICD Code Chicken pox Surgical History Surgery Date(Month/Year) knee surgery, left 1992 knee surgery, right 2019
== END ==
LOC: HO.SL 12:57
PROVIDERS: Visit Provider Internal Medicine Cardiovascular Disease
DX: G47.33 Obstructive sleep apnea (adult) (pediatric) (principal); E66.01 Morbid (severe) obesity due to excess calories
CPT/HCPCS: 95806

== ENCOUNTER → 2024-12-16 13:16 | Outpatient (BNV) | payer OTHER, SELFPAY | PROVIDERS: Visit Provider Internal Medicine | DX: G47.33 Obstructive sleep apnea (adult) (pediatric) (principal) | CPT/HCPCS: 95806 ==

== ENCOUNTER 2025-01-13 13:28 | Outpatient (AMB) | payer OTHER, SELFPAY ==
--- NOTE | 2025-01-13 13:33 | A.OFFVIS_ITS ---
Vital Signs 01/13/25 13:34 Height 5 ft 6 in Weight 288 lb BMI 46.5 BP 124/78 Blood Pressure Location Rt brachial Position Sitting Pulse 75 Pulse Source Pulse Oximeter Pulse Oximetry (%) 96 Oxygen Delivery Method Room Air Intake Visit Reasons: Obstructive sleep apnea Design And Sales Consultant Required: No Utility Manager: Utility Manager offered & declined Accompanied by: Self / Same As Patient Allergies Seasonal Allergies Allergy (Severe, Verified 01/13/25 13:36) Sneezing Medication List - Last Reconciled 01/13/25 by Kimberley Ken LPN No Known Home Meds HPI HPI Obstructive sleep apnea: Details: Gamaliel is a pleasant 49 year old male, former minimal smoker, with no significant past medical history. He was referred by caridiology for ongoing chest tightness, dyspnea and recent sleep study which revealed severe SONJA. He reports longstanding history of daytime fatigue, witnessed apneas and nonrestorative sleep. 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 Home sleep study revealed severe SONJA with moderate nocturnal hypoxemia with recommendations for in lab titration study. He also reports asthma dx as a child, never requiring intubations/hospitalizations related to respiratory distress. He reports dyspnea on exertion with associated chest tightness, no current respiratory medications. Recent CXR reportedly unremarkable. He reports multiple first degree family members with asthma and SONJA. He endorses seasonal allergies, no recent allergy testing. Has a dog and two cats at home. He reports significant dust exposure and possible asbestos exposure while working. [facility], [facility] Medical History (Updated 01/13/25 @ 16:17 by Sloane Walker NP) Morbid obesity Surgical History H/O knee surgery Family History Father Heart attack Stroke High blood pressure Mother Cancer Social History Alcohol intake: never Patient Tobacco Use Status: Never used Tobacco Review of Systems Const Denies chills, Denies excessive sweating, Denies fever(s), Denies headache(s) and Denies night sweats Eyes Denies dry eyes, Denies irritation and Denies itchy eyes ENT Reports Normal hearing present, Denies headache(s), Denies nasal congestion, Denies nasal discharge, Denies post nasal drip and Denies sore throat Card Denies chest pain, Denies chest pain at rest, Denies chest pain with activity, Denies claudication, Denies leg edema, Denies orthopnea and Denies paroxysmal nocturnal dyspnea Resp Denies chest congestion, Denies cough, Denies excessive phlegm production, Denies pain on inspiration, Denies pain with cough, Denies stridor and Denies wheezing Musc Denies myalgias Neuro Reports Normal hearing present and Denies headache(s) Endo Denies excessive sweating Adrian/Lymph Denies lymphadenopathy Aller/Immun Denies itchy eyes, Denies seasonal rhinorrhea and Denies wheezing Physical Exam Vital Signs: Last Vital Signs Pulse 75 01/13/25 13:34 BP 124/78 01/13/25 13:34 Pulse Ox 96 01/13/25 13:34 Oxygen Delivery Method Room Air 01/13/25 13:34 BMI result Body Mass Index 46.5 Const General: cooperative, healthy appearing, comfortable, no acute distress, well developed and alert Nutritional Appearance: obese Orientation/consciousness: patient oriented x3 Limitations: no limitations HEENT Head: Yes normal to inspection, Yes normocephalic and Yes atraumatic Ears: hearing grossly normal bilaterally and external ears normal Eyes General: appearance normal, both eyes and all related structures Eyelids: Yes eyelids normal Sclerae: sclerae normal EOM: EOMs intact bilaterally Neck Neck: Yes normal visual inspection and Yes no lymphadenopathy Lymphatic: no lymphadenopathy noted Chest Chest palpation & inspection: normal inspection of the chest Resp Effort & Inspection: normal respiratory effort, able to speak in complete sentences, no audible wheezes, no cough, no stridor, not tachypneic, no tripod positioning and no use of accessory muscles Auscultation: clear to auscultation bilaterally Cardio Jugular venous distension: no JVD Rate: regular rate Rhythm: regular rhythm Skin Other: warm, dry General skin exam: no rashes or lesions noted Neuro General: patient oriented x3 Cranial nerves: Yes Normal hearing present Cognition (Neuro): normal cognition Gait exam (Neuro): Normal gait present Extrem General: Yes normal to inspection, Yes capillary refill normal, Yes no clubbing, cyanosis or edema and Yes no pedal edema Psych Appearance: grossly normal and well kempt Speech and movement: Normal speech and movement present and Clear speech present Affect: normal affect Attitude: cooperative Thought process: Normal thought process present Thought content: Normal thought content present Insight: Good insight present (Psych) Judgement: Good judgement present (Psych) Assessment & Plan Assessment & Plan (1) Severe obstructive sleep apnea: Code(s): G47.33 - Obstructive sleep apnea (adult) (pediatric) Category: Medical (2) Nocturnal hypoxemia: Code(s): G47.34 - Idiopathic sleep related nonobstructive alveolar hypoventilation Category: Medical (3) Asthma: Code(s): J45.909 - Unspecified asthma, uncomplicated Category: Medical (4) Environmental allergies: Code(s): Z91.09 - Other allergy status, other than to drugs and biological substances Category: Medical (5) Morbid obesity: Code(s): E66.01 - Morbid (severe) obesity due to excess calories Category: Medical Plan Gamaliel's recent home sleep study revealed severe SONJA with moderate nocturnal hypoxemia. Will send for in lab titration study to ensure optimal pressures and resolution of nocturnal hypoxemia. We did discuss importance of weight loss. Patient with prior h/o asthma now with dyspnea on exertion and chest tightness. Will send for PFT and RAST. All questions were answered and patient is in agreement of plan. Will follow up to review results or sooner if needed. Orders: Orders Immunoglobulin E Today Z91.09 - Other allergy status, other than to drugs and biological substances RT PSG in-lab sleep titration Today G47.33 - Obstructive sleep apnea (adult) (pediatric), G47.34 - Idiopathic sleep related nonobstructive alveolar hypoventilation Complete Blood Count Auto Diff Today Z91.09 - Other allergy status, other than to drugs and biological substances Resp Allergy Profile Region I Today Z91.09 - Other allergy status, other than to drugs and biological substances PFT pulmonary function test Today J45.909 - Unspecified asthma, uncomplicated Coding Level of Care Code New Pt Level 4 (58008) Diagnoses Severe obstructive sleep apnea G47.33 Nocturnal hypoxemia G47.34 Asthma J45.909 Environmental allergies Z91.09 Morbid obesity E66.01
[2025-01-13 13:34] VITALS: BP 124/78; PULSE 75; O2SAT 96; BMI 46.5
--- OUTSIDE RECORDS SUMMARY | 2025-01-13 16:07 | XMS_ITS ---
Author Organization [facility] Address [address] [address] Care Team Providers Care Operation Supervisor Name Role Phone ETHEL IVERSON Unavailable [phone] REASON FOR REFERRAL Reason [facility] Diagnosis 1 Encounter for screen ing for malignant neoplasm of colon (Z12.11) Referral Organization [facility] Referring Provider First Name ETHEL Referring Provider Last Name ZAYRA Referring Provider Speciality Internal M edicine Referred Provider Specialty Gastroentero logy General Notes CADE WHITLOCK 07/07 11:26:35 AM >faxed referral with office notes to [facility] - p: [phone] f: [phone], Mercy Wilson 08/21/2024 01:42:23 PM > I called the office, and they informed me that they have reached out to the patient three times and even sent a letter but have not received any response. Referral Priority Routine Reason [facility] Car diology Diagnosis 1 Other chest pain (R0 7.89) Diagnosis 2 Other forms of dyspn ea (R06.09) Referral Organization [facility] Referring Provider First Name ETHEL Referring Provider Last Name ZAYRA Referring Provider Speciality Internal M edicine Referred Provider Specialty Cardiology General Notes CADE WHITLOCK 07/07 11:29:28 AM > faxed referral to [facility] Cardiology p: [phone] f: [phone] Clinical Notes Mercy Wilson 10/2023 03:01:20 PM > Scheduled for 10/28/2024 at 10 am Referral Priority Routine REASON FOR VISIT referral Encounters Encounter Location Date Provider Diagnosis [facility] [address] [facility] [address] [place] [address] 07/07/2024 ETHEL IVERSON PLAN OF TREATMENT Referrals Referral Date Details [facility] Car diology Progress Notes * Mason BURGERAlysaOB: [birth year] (48 yo M)Acc No.[id number]:07/07/2024 Patient:??Gamaliel BURGER :1975?Age:48 Y?Sex:Tj mahmood Address:[facility] [address] , [place] [address] Subjective: * Chief Complaints: * ?Referral * Medical History:?? * Surgical History:?? * Hospitalization/Major Diagno stic Procedure:?? * Medications:?? Objective: Assessment: Plan: * Treatment: * Procedure Codes:?? * true * Date:?? Consultation Request Notes Referral Date Referring Provider Referred Provider Not es 07/07/2024 ETHEL IVERSON [facility] 07/07/2024 ETHEL IVERSON [facility]
--- OUTSIDE RECORDS SUMMARY | 2025-01-13 16:07 | XMS_ITS | Patient Health Record ---
Author Organization [facility] Address [address] [place] [address] Care Team Providers Care Extruder Operator Name Role Phone ETHEL IVERSON Unavailable [phone] AUTUMN CLAYTON Unavailable [phone] ALLERGIES No Known Allergies RESULTS Component Value Reference Range Notes TOTAL AND FREE TESTOSTERONE Reviewed date:05/06/2024 12:11:13 PM Interpretation: Performing Lab: Notes/Report: Note Original Orderi ng Provider: AUTUMN CLAYTON LABEL PRINTING MACHINIST ALBUMIN 3.8 3.2-5.0 G/dL FOLLICLE STIMULATING HORMONE Reviewed date:05/06/2024 12:11:13 PM Interpretation: Performing Lab: Notes/Report: FOLLICLE STIMULATING HORMONE 1.6 0.7-10.8 mIU /mL LUTEINIZING HORMONE Reviewed date:05/06/2024 12:11:13 PM Interpretation: Performing Lab: Notes/Report: LUTEINIZING HORMONE 1.8 1.2-10.6 mIU/mL Note [employer], a member of [address] [address] Meter And Regulator Shop Supervisor - Carolina Flores MD REASON FOR REFERRAL Reason Pt needing referral for GI needing colonoscopy. Diagnosis 1 Screen for colon can cer (Z12.11) Referral Organization [facility] Referring Provider First Name ETHEL Referring Provider Last Name ZAYRA Referring Provider Speciality Internal M edicine Referred Provider Jamshid Franklin Referred Provider Specialty Gastroentero logy General Notes Address: [address] [place] [address] [address], [place] [address], Hours: , Open Closes 5 PM, Clinical Notes Vy Gallagher 04/06 08:39:43 AM >, [facility] 05/22/2024 01:54:59 PM > The patient has an appointment scheduled on 09/21/2024 at 1 pm. Pt is aware Referral Priority Routine Reason [facility] Diagnosis 1 Encounter for screen ing for malignant neoplasm of colon (Z12.11) Referral Organization [facility] Referring Provider First Name ETHEL Referring Provider Last Name ZAYRA Referring Provider Speciality Internal M edicine Referred Provider Specialty Gastroentero logy General Notes SERGIO WHITLOCKIYA 07/07 11:26:35 AM >faxed referral with office notes to [facility] - p: [phone] f: [phone], SteveRasheldeuce 08/21/2024 01:42:23 PM > I called the office, and they informed me that they have reached out to the patient three times and even sent a letter but have not received any response. Referral Priority Routine Reason [facility] Car diology Diagnosis 1 Other chest pain (R0 7.89) Diagnosis 2 Other forms of dyspn ea (R06.09) Referral Organization [facility] Referring Provider First Name ETHEL Referring Provider Last Name ZAYRA Referring Provider Speciality Internal edicine Referred Provider Specialty Cardiology General Notes CHINYERESERGIOCADE 07/07 11:29:28 AM > faxed referral to [facility] Cardiology p: [phone] f: [phone] Clinical Notes [facility] Wilson 10/2023 03:01:20 PM > Scheduled for 10/28/2024 at 10 am Ref[facility] 1 Arthralgia of multip le joints (M25.50) Referral Organization [place] [address] Referring Provider First Name AUTUMN Referring Provider Last Name FORREST Referring Provider Speciality Internal M edicine Referred Provider Specialty Rheumatology General Notes Poonam Tavares 09/01/2024 02:32:25 PM > Referral with attachment faxed, pt given information to call and schedule visit. [facility] p: [phone] f: [phone] Clinical Notes [facility] Wilson 02:24:53 PM > [...] (E55.9) Active confirmed Vitamin D defic iency (04527372) Problem Other forms of dyspnea (R06.09) Active confirmed 219524599 Problem Other chest pain (R07.89) Active confirmed Chest pain (98277430) Problem Encounter for screening for malignant neoplasm of colon (Z12.11) Active confirmed 965743801 Problem Encounter for screening for lipoid disorders (Z13.220) Active confirmed Lipid screening (914180036) Problem Morbid obesity (E66.01) Active confirmed 205908909 Problem Screen for colon cancer (Z12.11) Active confirmed 965832267 Problem Adult general medical exam (Z00.00) Active confirmed Adult health examination (883802609) Problem Sleep apnea, unspecified type (G47.30) Active confirmed 33625175 Problem Encounter for diabetic foot exam (E11.9) Active confirmed 112011088 Problem Erectile dysfunction, unspecified erectile dysfunction type (N52.9) Active confirmed 561139521 Problem SONJA (obstructive sleep apnea) (G47.33) Active confirmed 80336556 Problem Diabetes mellitus screening (Z13.1) Active confirmed Diabetes mellit us screening (731750381) Problem Body mass index [BMI]40.0-44.9 , adult (Z68.41) Active confirmed 655380941 Problem Testicular pain, left (N50.812) Active confirmed 47353422138953158 Problem Encounter for screening for endocrine disorder (Z13.29) Active confirmed Endocrine/metab olic screening (524941674) Problem Encounter for prostate cancer screening (Z12.5) Active confirmed Screening for malignant neoplasm of prostate (809675810) Problem Arthralgia of multiple joints (M25.50) Active confirmed 37756566 VITAL SIGNS Heart Rate 82 /min 09/01/2024 Oximetry 97 % 09/01/2024 Blood pressure diastolic 82 mm Hg 09/01/2024 Height 65 in 09/01/2024 Blood pressure systolic 130 mm Hg 09/01/2024 Weight 284 lbs 09/01/2024 BMI 47.25 kg/m2 09/01/2024 Encounters Encounter Location Date Provider Diagnosis [facility] [address] [place] [address] 04/11/2024 AUTUMN CLAYTON [facility] [address] [address] 10/15/2024 [facility] [address] [facility] [address] [address] 03/10/2024 AUTUMN CLAYTON Morbid obesity E66.0 1 ; Body mass index [BMI]40.0-44.9, adult Z68.41 ; Erectile dysfunction, unspecified erectile dysfunction type N52.9 ; SONJA (obstructive sleep apnea) G47.33 ; Vitamin D deficiency, unspecified E55.9 ; Other chest pain R07.89 and Arthralgia of multiple joints M25.[address] [facility] [address] [facility] [address] [address] 05/07/2024 AUTUMN CLAYTON Morbid obesity E66.0 1 ; Body mass index [BMI]40.0-44.9, adult Z68.41 ; Erectile dysfunction, unspecified erectile dysfunction type N52.9 ; SONJA (obstructive sleep apnea) G47.33 ; Other chest pain R07.89 and Arthralgia of multiple joints M25.50 [facility] [address] [address] 07/07/2024 AUTUMN CLAYTON Morbid obesity E66.0 1 ; Body mass index [BMI]40.0-44.9, adult Z68.41 ; Erectile dysfunction, unspecified erectile dysfunction type N52.9 ; SONJA (obstructive sleep apnea) G47.33 ; Other chest pain R07.89 ; Arthralgia of multiple joints M25.50 and SERNA (dyspnea on exertion) R06.09 [facility] [address] 09/01/2024 AUTUMN KERN Morbid obesity E66.0 1 ; Body mass index [BMI]40.0-44.9, adult Z68.41 ; Erectile dysfunction, unspecified erectile dysfunction type N52.9 ; SONJA (obstructive sleep apnea) G47.33 ; Other chest pain R07.89 ; Arthralgia of multiple joints M25.50 ; SERNA (dyspnea on exertion) R06.09 and Encounter for immunization Z23 [facility] [address] [place] [address] 03/10/2024 AUTUMN CLAYTON [facility] [address] [facility] [address] [address] 07/07/2024 TALAL IVERSON [address] [facility] [address] [address] 03/10/2024 [facility] [address] [facility] [facility] [address] [address] 03/12/2024 TALAL IVERSON [address] [facility] [address] 03/16/2024 TALAL IVERSON [address] [facility] [facility] [address] 04/03/2024 AUTUMN [facility] [address] [facility] [address] 04/03/2024 TALAL IVERSON [address] [facility] [address] 04/03/2024 AUTUMN CLAYTON ASSESSMENTS Encounter Date Diagnosis Assessment Notes Treatment Notes Treatment Clinical Notes Section Notes 03/10/2024 Morbid obesity (ICD-10 - E66.01) Acute Concerns/Problem List: 03/10/2024 Hypogonadism workup Please follow-up with for your specialty referrals All of these referrals were done on our end He will be referred for colorectal screening, Number provided for [facility] We will be referred for obstructive sleep [...] track activity level. Consider using apps like [employer], [employer], lose it, stick as needed for self-monitoring and weight management. Consider group exercises. Consider hiring a strainer cleaner. Regular exercise is hurst to sustainable health [...] counseling and psychiatry and Dr Bell at [facility]. We would like to cover regular topics [...] software and direct typing Please excuse inadvertent record label internship or typing errors, or uncorrected word substitutions Although every attempt has been made by the provider to proofread this document, occasional misspellings and typographical errors may still be present Due to the previous pandemic, and the use of personal protective equipment (PPE) This may decrease voice recognition accuracy Inadvertent record label internship errors may occur 05/07/2024 Morbid obesity (ICD-10 - E66.01) Acute Concerns/Problem List: 05/07/2024 Will try for Wegovy GLP therapy Dual incretin was not approved Please follow-up with for your specialty referrals All of these referrals were done on our end He will be referred for colorectal screening, Number provided for [facility] We will be referred for obstructive sleep [...] track activity level. Consider using apps like [employer], [email or web address], lose it, stick as needed for self-monitoring and weight management. Consider group exercises. Consider hiring a strainer cleaner. Regular exercise is hurst to sustainable health [...] counseling and psychiatry and Dr Bell at [facility]. We would like to cover regular topics [...] software and direct typing Please excuse inadvertent record label internship or typing errors, or uncorrected word substitutions Although every attempt has been made by the provider to proofread this document, occasional misspellings and typographical errors may still be present Due to the previous pandemic, and the use of personal protective equipment (PPE) This may decrease voice recognition accuracy Inadvertent record label internship errors may occur 07/07/2024 Morbid obesity (ICD-10 - E66.01) Acute Concerns/Problem List: 07/07/2024 Wegovy 0.25 mg, sent to [facility] Please follow-up with for [...] track activity level. Consider using apps like [employer], [employer], lose it, stick as needed for self-monitoring and weight management. Consider group exercises. Consider hiring a strainer cleaner. Regular exercise is hurst to sustainable health [...] counseling and psychiatry and Dr Bell at [facility]. We would like to cover regular topics [...] software and direct typing Please excuse inadvertent record label internship or typing errors, or uncorrected word substitutions Although every attempt has been made by the provider to proofread this document, occasional misspellings and typographical errors may still be present Due to the previous pandemic, and the use of personal protective equipment (PPE) This may decrease voice recognition accuracy Inadvertent record label internship errors may occur 09/01/2024 Morbid obesity (ICD-10 - E66.01) Acute Concerns/Problem List: 09/01/2024 DCF paperwork was filled out today We have given him a starter pack of Wegovy 0.25 mg Tdap today Flu shot today Scheduled to see cardiology early October as well as gastroenterology next month For stress testing as well as colonoscopy Will refer to rheumatology at [facility] _update labs and CPE Total time [...] software and direct typing Please excuse inadvertent record label internship or typing errors, or uncorrected word substitutions Although every attempt has been made by the provider to proofread this document, occasional misspellings and typographical errors may still be present Due to the previous pandemic, and the use of personal protective equipment (PPE) This may decrease voice recognition accuracy Inadvertent record label internship errors may occur 09/01/2024 Body mass index [BMI]40.0-44.9, adult (ICD-10 - Z68.41) Acute Concerns/Problem List: 09/01/2024 DCF paperwork was filled out today We have given him a starter pack of Wegovy 0.25 mg Tdap today Flu shot today Scheduled to see cardiology early October as well as gastroenterology next month For stress testing as well as colonoscopy Will refer to rheumatology at [facility] _update labs and CPE Total time [...] software and direct typing Please excuse inadvertent record label internship or typing errors, or uncorrected word substitutions Although every attempt has been made by the provider to proofread this document, occasional misspellings and typographical errors may still be present Due to the previous pandemic, and the use of personal protective equipment (PPE) This may decrease voice recognition accuracy Inadvertent record label internship errors may occur 07/07/2024 Body mass index [BMI]40.0-44.9, adult (ICD-10 - Z68.41) Acute Concerns/Problem List: 07/07/2024 Wegovy 0.25 mg, sent to [facility] Please follow-up with for [...] track activity level. Consider using apps like [employer], myfitnesspal, lose it, stick as needed for self-monitoring and weight management. Consider group exercises. Consider hiring a strainer cleaner. Regular exercise is hurst to sustainable health [...] counseling and psychiatry and Dr Bell at [facility]. We would like to cover regular topics [...] software and direct typing Please excuse inadvertent record label internship or typing errors, or uncorrected word substitutions Although every attempt has been made by the provider to proofread this document, occasional misspellings and typographical errors may still be present Due to the previous pandemic, and the use of personal protective equipment (PPE) This may decrease voice recognition accuracy Inadvertent record label internship errors may occur 05/07/2024 Body mass index [BMI]40.0-44.9, adult (ICD-10 - Z68.41) Acute Concerns/Problem List: 05/07/2024 Will try for Wegovy GLP therapy Dual incretin was not approved Please follow-up with for your specialty referrals All of these referrals were done on our end He will be referred for colorectal screening, Number provided for [facility] We will be referred for obstructive sleep [...] track activity level. Consider using apps like [employer], [email or web address], lose it, stick as needed for self-monitoring and weight management. Consider group exercises. Consider hiring a strainer cleaner. Regular exercise is hurst to sustainable health [...] counseling and psychiatry and Dr Bell at [facility]. We would like to cover regular topics [...] software and direct typing Please excuse inadvertent record label internship or typing errors, or uncorrected word substitutions Although every attempt has been made by the provider to proofread this document, occasional misspellings and typographical errors may still be present Due to the previous pandemic, and the use of personal protective equipment (PPE) This may decrease voice recognition accuracy Inadvertent record label internship errors may occur 03/10/2024 Body mass index [BMI]40.0-44.9, adult (ICD-10 - Z68.41) Acute Concerns/Problem List: 03/10/2024 Hypogonadism workup Please follow-up with for your specialty referrals All of these referrals were done on our end He will be referred for colorectal screening, Number provided for [facility] We will be referred for obstructive sleep [...] Eat Fat Get Lean by Dr Dwayne Anderosn. Self education is important in the journey [...] track activity level. Consider using apps like [employer], [employer]fitnesspal, lose it, stick as needed for self-monitoring and weight management. Consider group exercises. Consider hiring a strainer cleaner. Regular exercise is hurst to sustainable health [...] counseling and psychiatry and Dr Bell at [facility]. We would like to cover regular topics [...] software and direct typing Please excuse inadvertent record label internship or typing errors, or uncorrected word substitutions Although every attempt has been made by the provider to proofread this document, occasional misspellings and typographical errors may still be present Due to the previous pandemic, and the use of personal protective equipment (PPE) This may decrease voice recognition accuracy Inadvertent record label internship errors may occur 05/07/2024 Erectile dysfunction, unspecified erectile dysfunction type (ICD-10 - N52.9) Acute Concerns/Problem List: 05/07/2024 Will try for Wegovy GLP therapy Dual incretin was not approved Please follow-up with for your specialty referrals All of these referrals were done on our end He will be referred for colorectal screening, Number provided for [facility] We will be referred for obstructive sleep [...] track activity level. Consider using apps like [employer], [employer], lose it, stick as needed for self-monitoring and weight management. Consider group exercises. Consider hiring a strainer cleaner. Regular exercise is hurst to sustainable health [...] counseling and psychiatry and Dr Bell at [facility]. We would like to cover regular topics [...] software and direct typing Please excuse inadvertent record label internship or typing errors, or uncorrected word substitutions Although every attempt has been made by the provider to proofread this document, occasional misspellings and typographical errors may still be present Due to the previous pandemic, and the use of personal protective equipment (PPE) This may decrease voice recognition accuracy Inadvertent record label internship errors may occur 03/10/2024 Erectile dysfunction, unspecified erectile dysfunction type (ICD-10 - N52.9) Acute Concerns/Problem List: 03/10/2024 Hypogonadism workup Please follow-up with for your specialty referrals All of these referrals were done on our end He will be referred for colorectal screening, Number provided for [facility] We will be referred for obstructive sleep [...] track activity level. Consider using apps like [employer], [employer], lose it, stick as needed for self-monitoring and weight management. Consider group exercises. Consider hiring a strainer cleaner. Regular exercise is hurst to sustainable health [...] counseling and psychiatry and Dr Bell at [facility]. We would like to cover regular topics [...] software and direct typing Please excuse inadvertent record label internship or typing errors, or uncorrected word substitutions Although every attempt has been made by the provider to proofread this document, occasional misspellings and typographical errors may still be present Due to the previous pandemic, and the use of personal protective equipment (PPE) This may decrease voice recognition accuracy Inadvertent record label internship errors may occur 07/07/2024 Erectile dysfunction, unspecified erectile dysfunction type (ICD-10 - N52.9) Acute Concerns/Problem List: 07/07/2024 Wegovy 0.25 mg, sent to [facility] Please follow-up with for [...] track activity level. Consider using apps like [employer], [employer], lose it, stick as needed for self-monitoring and weight management. Consider group exercises. Consider hiring a strainer cleaner. Regular exercise is hurst to sustainable health [...] counseling and psychiatry and Dr Bell at [facility]. We would like to cover regular topics [...] software and direct typing Please excuse inadvertent record label internship or typing errors, or uncorrected word substitutions Although every attempt has been made by the provider to proofread this document, occasional misspellings and typographical errors may still be present Due to the previous pandemic, and the use of personal protective equipment (PPE) This may decrease voice recognition accuracy Inadvertent record label internship errors may occur 09/01/2024 Erectile dysfunction, unspecified erectile dysfunction type (ICD-10 - N52.9) Acute Concerns/Problem List: 09/01/2024 DCF paperwork was filled out today We have given him a starter pack of Wegovy 0.25 mg Tdap today Flu shot today Scheduled to see cardiology early October as well as gastroenterology next month For stress testing as well as colonoscopy Will refer to rheumatology at [facility] _update labs and CPE Total time [...] software and direct typing Please excuse inadvertent record label internship or typing errors, or uncorrected word substitutions Although every attempt has been made by the provider to proofread this document, occasional misspellings and typographical errors may still be present Due to the previous pandemic, and the use of personal protective equipment (PPE) This may decrease voice recognition accuracy Inadvertent record label internship errors may occur 09/01/2024 SONJA (obstructive sleep apnea) (ICD-10 - G47.33) Acute Concerns/Problem List: 09/01/2024 DCF paperwork was filled out today We have given him a starter pack of Wegovy 0.25 mg Tdap today Flu shot today Scheduled to see cardiology early October as well as gastroenterology next month For stress testing as well as colonoscopy Will refer to rheumatology at [facility] _update labs and CPE Total time [...] software and direct typing Please excuse inadvertent record label internship or typing errors, or uncorrected word substitutions Although every attempt has been made by the provider to proofread this document, occasional misspellings and typographical errors may still be present Due to the previous pandemic, and the use of personal protective equipment (PPE) This may decrease voice recognition accuracy Inadvertent record label internship errors may occur 07/07/2024 SONJA (obstructive sleep apnea) (ICD-10 - G47.33) Acute Concerns/Problem List: 07/07/2024 Wegovy 0.25 mg, sent to [facility] Please follow-up with for [...] track activity level. Consider using apps like [employer], [email or web address], lose it, stick as needed for self-monitoring and weight management. Consider group exercises. Consider hiring a strainer cleaner. Regular exercise is hurst to sustainable health [...] counseling and psychiatry and Dr Bell at [facility]. We would like to cover regular topics [...] software and direct typing Please excuse inadvertent record label internship or typing errors, or uncorrected word substitutions Although every attempt has been made by the provider to proofread this document, occasional misspellings and typographical errors may still be present Due to the previous pandemic, and the use of personal protective equipment (PPE) This may decrease voice recognition accuracy Inadvertent record label internship errors may occur 03/10/2024 SONJA (obstructive sleep apnea) (ICD-10 - G47.33) Acute Concerns/Problem List: 03/10/2024 Hypogonadism workup Please follow-up with for your specialty referrals All of these referrals were done on our end He will be referred for colorectal screening, Number provided for [facility] We will be referred for obstructive sleep [...] track activity level. Consider using apps like [employer], [employer], lose it, stick as needed for self-monitoring and weight management. Consider group exercises. Consider hiring a strainer cleaner. Regular exercise is hurst to sustainable health [...] counseling and psychiatry and Dr Bell at [facility]. We would like to cover regular topics [...] software and direct typing Please excuse inadvertent record label internship or typing errors, or uncorrected word substitutions Although every attempt has been made by the provider to proofread this document, occasional misspellings and typographical errors may still be present Due to the previous pandemic, and the use of personal protective equipment (PPE) This may decrease voice recognition accuracy Inadvertent record label internship errors may occur 05/07/2024 SONJA (obstructive sleep apnea) (ICD-10 - G47.33) Acute Concerns/Problem List: 05/07/2024 Will try for Wegovy GLP therapy Dual incretin was not approved Please follow-up with for your specialty referrals All of these referrals were done on our end He will be referred for colorectal screening, Number provided for Maliha Raffstar We will be referred for obstructive sleep [...] track activity level. Consider using apps like [employer], [employer], lose it, stick as needed for self-monitoring and weight management. Consider group exercises. Consider hiring a strainer cleaner. Regular exercise is hurst to sustainable health [...] counseling and psychiatry and Dr Bell at [facility]. We would like to cover regular topics [...] software and direct typing Please excuse inadvertent record label internship or typing errors, or uncorrected word substitutions Although every attempt has been made by the provider to proofread this document, occasional misspellings and typographical errors may still be present Due to the previous pandemic, and the use of personal protective equipment (PPE) This may decrease voice recognition accuracy Inadvertent record label internship errors may occur 03/10/2024 Vitamin D deficiency, unspecified (ICD-10 - E55.9) Acute Concerns/Problem List: 03/10/2024 Hypogonadism workup Please follow-up with for your specialty referrals All of these referrals were done on our end He will be referred for colorectal screening, Number provided for Aveso We will be referred for obstructive sleep [...] track activity level. Consider using apps like [employer], [employer], lose it, stick as needed for self-monitoring and weight management. Consider group exercises. Consider hiring a strainer cleaner. Regular exercise is hurst to sustainable health [...] counseling and psychiatry and Dr Bell at [facility]. We would like to cover regular topics [...] software and direct typing Please excuse inadvertent record label internship or typing errors, or uncorrected word substitutions Although every attempt has been made by the provider to proofread this document, occasional misspellings and typographical errors may still be present Due to the previous pandemic, and the use of personal protective equipment (PPE) This may decrease voice recognition accuracy Inadvertent record label internship errors may occur 05/07/2024 Other chest pain (ICD-10 - R07.89) Acute Concerns/Problem List: 05/07/2024 Will try for Wegovy GLP therapy Dual incretin was not approved Please follow-up with for your specialty referrals All of these referrals were done on our end He will be referred for colorectal screening, Number provided for Aveso We will be referred for obstructive sleep [...] track activity level. Consider using apps like [employer], [employer], lose it, stick as needed for self-monitoring and weight management. Consider group exercises. Consider hiring a strainer cleaner. Regular exercise is hurst to sustainable health [...] counseling and psychiatry and Dr Bell at [facility]. We would like to cover regular topics [...] software and direct typing Please excuse inadvertent record label internship or typing errors, or uncorrected word substitutions Although every attempt has been made by the provider to proofread this document, occasional misspellings and typographical errors may still be present Due to the previous pandemic, and the use of personal protective equipment (PPE) This may decrease voice recognition accuracy Inadvertent record label internship errors may occur 07/07/2024 Other chest pain (ICD-10 - R07.89) Acute Concerns/Problem List: 07/07/2024 Wegovy 0.25 mg, sent to [facility] Please follow-up with for [...] track activity level. Consider using apps like [employer], [employer], lose it, stick as needed for self-monitoring and weight management. Consider group exercises. Consider hiring a strainer cleaner. Regular exercise is hurst to sustainable health [...] counseling and psychiatry and Dr Bell at [facility]. We would like to cover regular topics [...] software and direct typing Please excuse inadvertent record label internship or typing errors, or uncorrected word substitutions Although every attempt has been made by the provider to proofread this document, occasional misspellings and typographical errors may still be present Due to the previous pandemic, and the use of personal protective equipment (PPE) This may decrease voice recognition accuracy Inadvertent record label internship errors may occur 09/01/2024 Other chest pain (ICD-10 - R07.89) Acute Concerns/Problem List: 09/01/2024 DCF paperwork was filled out today We have given him a starter pack of Wegovy 0.25 mg Tdap today Flu shot today Scheduled to see cardiology early October as well as gastroenterology next month For stress testing as well as colonoscopy Will refer to rheumatology at [facility] _update labs and CPE Total time [...] software and direct typing Please excuse inadvertent record label internship or typing errors, or uncorrected word substitutions Although every attempt has been made by the provider to proofread this document, occasional misspellings and typographical errors may still be present Due to the previous pandemic, and the use of personal protective equipment (PPE) This may decrease voice recognition accuracy Inadvertent record label internship errors may occur 07/07/2024 Arthralgia of multiple joints (ICD-10 - M25.50) Acute Concerns/Problem List: 07/07/2024 Wegovy 0.25 mg, sent to [facility] Please follow-up with for [...] track activity level. Consider using apps like [employer], [employer]itnesspal, lose it, stick as needed for self-monitoring and weight management. Consider group exercises. Consider hiring a strainer cleaner. Regular exercise is hurst to sustainable health [...] counseling and psychiatry and Dr Bell at [facility]. We would like to cover regular topics [...] software and direct typing Please excuse inadvertent record label internship or typing errors, or uncorrected word substitutions Although every attempt has been made by the provider to proofread this document, occasional misspellings and typographical errors may still be present Due to the previous pandemic, and the use of personal protective equipment (PPE) This may decrease voice recognition accuracy Inadvertent record label internship errors may occur 09/01/2024 Arthralgia of multiple joints (ICD-10 - M25.50) Acute Concerns/Problem List: 09/01/2024 DCF paperwork was filled out today We have given him a starter pack of Wegovy 0.25 mg Tdap today Flu shot today Scheduled to see cardiology early October as well as gastroenterology next month For stress testing as well as colonoscopy Will refer to rheumatology at [facility] _update labs and CPE Total time [...] software and direct typing Please excuse inadvertent record label internship or typing errors, or uncorrected word substitutions Although every attempt has been made by the provider to proofread this document, occasional misspellings and typographical errors may still be present Due to the previous pandemic, and the use of personal protective equipment (PPE) This may decrease voice recognition accuracy Inadvertent record label internship errors may occur 05/07/2024 Arthralgia of multiple joints (ICD-10 - M25.50) Acute Concerns/Problem List: 05/07/2024 Will try for Wegovy GLP therapy Dual incretin was not approved Please follow-up with for your specialty referrals All of these referrals were done on our end He will be referred for colorectal screening, Number provided for Aveso We will be referred for obstructive sleep [...] track activity level. Consider using apps like [employer], [employer], lose it, stick as needed for self-monitoring and weight management. Consider group exercises. Consider hiring a strainer cleaner. Regular exercise is hurst to sustainable health [...] counseling and psychiatry and Dr Bell at [facility]. We would like to cover regular topics [...] software and direct typing Please excuse inadvertent record label internship or typing errors, or uncorrected word substitutions Although every attempt has been made by the provider to proofread this document, occasional misspellings and typographical errors may still be present Due to the previous pandemic, and the use of personal protective equipment (PPE) This may decrease voice recognition accuracy Inadvertent record label internship errors may occur 03/10/2024 Other chest pain (ICD-10 - R07.89) Acute Concerns/Problem List: 03/10/2024 Hypogonadism workup Please follow-up with for your specialty referrals All of these referrals were done on our end He will be referred for colorectal screening, Number provided for MalihaSling We will be referred for obstructive sleep [...] track activity level. Consider using apps like [employer], [employer], lose it, stick as needed for self-monitoring and weight management. Consider group exercises. Consider hiring a strainer cleaner. Regular exercise is hurst to sustainable health [...] counseling and psychiatry and Dr Bell at [facility]. We would like to cover regular topics [...] software and direct typing Please excuse inadvertent record label internship or typing errors, or uncorrected word substitutions Although every attempt has been made by the provider to proofread this document, occasional misspellings and typographical errors may still be present Due to the previous pandemic, and the use of personal protective equipment (PPE) This may decrease voice recognition accuracy Inadvertent record label internship errors may occur 03/10/2024 Arthralgia of multiple joints (ICD-10 - M25.50) Acute Concerns/Problem List: 03/10/2024 Hypogonadism workup Please follow-up with for your specialty referrals All of these referrals were done on our end He will be referred for colorectal screening, Number provided for Aveso We will be referred for obstructive sleep [...] track activity level. Consider using apps like [employer], [employer], lose it, stick as needed for self-monitoring and weight management. Consider group exercises. Consider hiring a strainer cleaner. Regular exercise is hurst to sustainable health [...] counseling and psychiatry and Dr Bell at [facility]. We would like to cover regular topics [...] software and direct typing Please excuse inadvertent record label internship or typing errors, or uncorrected word substitutions Although every attempt has been made by the provider to proofread this document, occasional misspellings and typographical errors may still be present Due to the previous pandemic, and the use of personal protective equipment (PPE) This may decrease voice recognition accuracy Inadvertent record label internship errors may occur 07/07/2024 SERNA (dyspnea on exertion) (ICD-10 - R06.09) Acute Concerns/Problem List: 07/07/2024 Wegovy 0.25 mg, sent to [facility] Please follow-up with for [...] track activity level. Consider using apps like [employer], [employer]itnesspal, lose it, stick as needed for self-monitoring and weight management. Consider group exercises. Consider hiring a strainer cleaner. Regular exercise is hurst to sustainable health [...] counseling and psychiatry and Dr Bell at [facility]. We would like to cover regular topics [...] software and direct typing Please excuse inadvertent record label internship or typing errors, or uncorrected word substitutions Although every attempt has been made by the provider to proofread this document, occasional misspellings and typographical errors may still be present Due to the previous pandemic, and the use of personal protective equipment (PPE) This may decrease voice recognition accuracy Inadvertent record label internship errors may occur 09/01/2024 SERNA (dyspnea on exertion) (ICD-10 - R06.09) Acute Concerns/Problem List: 09/01/2024 DCF paperwork was filled out today We have given him a starter pack of Wegovy 0.25 mg Tdap today Flu shot today Scheduled to see cardiology early October as well as gastroenterology next month For stress testing as well as colonoscopy Will refer to rheumatology at [facility] _update labs and CPE Total time [...] software and direct typing Please excuse inadvertent record label internship or typing errors, or uncorrected word substitutions Although every attempt has been made by the provider to proofread this document, occasional misspellings and typographical errors may still be present Due to the previous pandemic, and the use of personal protective equipment (PPE) This may decrease voice recognition accuracy Inadvertent record label internship errors may occur 09/01/2024 Encounter for immunization (ICD-10 - Z23) Acute Concerns/Problem List: 09/01/2024 DCF paperwork was filled out today We have given him a starter pack of Wegovy 0.25 mg Tdap today Flu shot today Scheduled to see cardiology early October as well as gastroenterology next month For stress testing as well as colonoscopy Will refer to rheumatology at [facility] _update labs and CPE Total time [...] software and direct typing Please excuse inadvertent record label internship or typing errors, or uncorrected word substitutions Although every attempt has been made by the provider to proofread this document, occasional misspellings and typographical errors may still be present Due to the previous pandemic, and the use of personal protective equipment (PPE) This may decrease voice recognition accuracy Inadvertent record label internship errors may occur PLAN OF TREATMENT Pending [...] Date Coverage End Date [employer] [address] [place] [address] [phone] [id number] Gamaliel Vargas Self - patient is the insured [facility] [address] [place] [address] [phone] [id number] Gamaliel Vargas Self - patient is the insured MEDICAL (GENERAL) HISTORY Medical History History ICD Code obesity
--- OUTSIDE RECORDS SUMMARY | 2025-01-13 16:07 | XMS_ITS | Patient Health Record ---
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 Encounters Encounter Location Date [facility] [address] [place] [address] 02/28/2024 Yaritza Cordero Plan Of Treatment Pending Test Test Name Order Date *Liver Function Test (LFT) 01/08/2024 Insurance Providers Payer Name Payer Address Payer Phone Subscriber Number Group Number Insured Name Patient Relationship to Insured Coverage Start Date Coverage End Date Breanne CAMARENABS [address] [place] [address] [id number] Gamaliel Vargas Self - patient is the insured Medical (General) History Medical History History ICD Code Chicken pox Surgical History Surgery Date(Month/Year) knee surgery, left 1992 knee surgery, right 2019
--- OUTSIDE RECORDS SUMMARY | 2025-01-13 16:07 | XMS_ITS ---
Author Organization [facility] Address [address] [place] [address] Care Team Providers Care Furniture Fabricator Name Role Phone ETHEL IVERSON Unavailable [phone] AUTUMN CLAYTON Unavailable [phone] Encounters Encounter Location Date [facility] [address] [facility] [address] [place] [address] 10/15/2024 AUTUMN CLAYTON PLAN OF TREATMENT No Information Progress Notes * Ruby BURGEROB: [birth year] (49 yo M)Acc No.[id number]:10/15/2024 CPE Patient:??Gamaliel BURGER Provider:??AUTUMN CLAYTON NP :1975?Age:49 Y?Sex:Ma le Date:10/15/2024 Address[address], [facility] Subjective: * Chief Complaints: * ? * Medical History:?? Objective: Assessment: Plan: * Treatment: * Images: Billing Information: * Visit Code:?? * Procedure Codes:?? Care Plan Details* * Sign off status: Pending * Provider:??AUTUMN CLAYTON NP Date:??11/2024
--- OUTSIDE RECORDS SUMMARY | 2025-01-13 16:08 | XMS_ITS ---
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 Problem Mononeuropathy of lower limb (419299062) Neuritis of left foot (G57.92) Active confirmed Vital Signs Height 5 ft 6 in in 01/08/2024 Weight 280 lbs 01/08/2024 BMI 45.19 kg/m2 01/08/2024 Encounters Encounter Location Date Provider Diagnosis [facility] [address] [place] [address] 01/08/2024 Yaritza Cordero Achilles tendinitis of right [...] * Ruby BURGEROB: [birth year] (48 yo M)Acc No.[id number]:01/08/2024 Progress Notes Patient:?Gamaliel Burger Provider:?Yaritza Cordero DPM :1975???Age:48 Y???Sex:Male Luis e:01/08/2024 Address:[facility] [address] [facility] Pcp:Magda Rivas Subjective: * Chief Complaints: * [...] Plan: * Treatment: 2.?Achilles tendinitis of ri [facility] lower extremity? Start Night Splint [...] unguium?LAB: *Liver Function Test (LFT) * Procedure Codes:?28744 X-RAY EXAM OF RIGHT FOOT 3V, Modifiers: [...] Interfil injection therapy, as well as surgical Bedford/Calcanectomy- tendon debridement surgical procedures if needed. Recommendations [...] Cordero DPM Date:?2023 Generated for Juarez russo/Suzanne/Savannah on:?01/13/2025 04:07 PM EDT History and Physical Notes * HPI (History [...]
--- OUTSIDE RECORDS SUMMARY | 2025-01-13 16:08 | XMS_ITS ---
Author Organization [facility] [address] [facility] [address] [address] [address] Care Team Providers Care Executive Director Global Brand Marketing Name Role Phone Magda Rivas Primary Care Provider UnavailYaritza Bledsoe [phone] REASON FOR VISIT NS todays 02/28/24 Encounters Encounter Location Date Provider Diagnosis [address] [place] [address] 02/28/2024 Yaritza Cordero Plan Of Treatment No Information Progress Notes * Ruby BURGEROB: [birth year] (48 yo M)Acc No.[id number]:02/28/2024 Patient:?Gamaliel Burger :1975???Age:48 Y???Sex:Male Address:[address], [place] [address] * true * Date:? Generated for Danieli karan/Suzanne/eTransmitting on:?01/13/2025 04:07 PM EDT
--- OUTSIDE RECORDS SUMMARY | 2025-01-13 16:08 | XMS_ITS ---
Author Organization [facility] [place] Address [address] [facility] [place] [address] Care Team Providers Care Construction Administrator Name Role Phone Magda Rivas Primary Care Provider Yaritza Zendejas Unavailable [phone] REASON FOR VISIT pt states last pcp [...] Active Encounters Encounter Location Date [facility] [address] 02/28/2024 Yaritza Cordero Achilles tendinitis of right [...] * TAO MasonoDOB: [birth year] (49 yo M)Acc No.[id number]:02/28/2024 Progress Notes Patient:?TAO Gamaliel Provider:?Yaritza Cordero DPM :1975???Age:48 Y???Sex:Male Luis e:02/28/2024 Address[address], [facility] [place] Pcp:Magda Rivas Subjective: * Chief Complaints: * [...] identified.? Assessment: * Assessment: 1.?Achilles tendinitis of [facility] lower extremity - M76.61???Specify :Acute problem, [...] 30 days, 60, Refills 2.?? * Procedure Codes:?23638 X-RAY EXAM OF RIGHT FOOT 3V, Modifiers: 26 , RT * Follow Up:?6 Weeks * Images: * The named appointment provid er may or may not be the originator of this progress note, and it is not deemed complete until electronically signed by the appointment provider. Sign off status: Pending * Provider:Brad Cordero DPM Date:?2023 Generated for Juarez russo/Suzanne/Savannah on:?01/13/2025 04:08 PM EDT History and Physical Notes * [...]
--- OUTSIDE RECORDS SUMMARY | 2025-01-13 16:08 | XMS_ITS ---
Author Organization [facility] Address [address] [place] [address] Care Team Providers Care Assistant Branch Operations Manager Name Role Phone IVERSONETHEL MONDRAGON Unavailable [phone] AUTUMN CLAYTON Unavailable [phone] ALLERGIES No Known Allergies REASON FOR REFERRAL Reason [facility] Diagnosis 1 Arthralgia of multip le joints (M25.50) Referral Organization [facility] 119 Referring Provider First Name AUTUMN Referring Provider Last Name FORREST Referring Provider Speciality Internal M edicine Referred Provider Specialty Rheumatology General Notes Poonam Tavares 09/01/2024 02:32:25 PM > Referral with attachment faxed, pt given information to call and schedule visit. [facility] [place] p: [phone] f: [phone] Clinical Notes [facility] 02:24:53 PM > [...] Notes Are you a nonsmoker VITAL SIGNS Blood pressure systolic 130 mm Hg 09/01/20 24 Blood pressure diastolic 82 mm Hg 024 Heart Rate 82 /min 09/01/2024 Height 65 in 09/01/2024 Weight 284 lbs 09/01/2024 BMI 47.25 kg/m2 09/01/2024 Oximetry 97 % 09/01/2024 Encounters Encounter Location Date Provider Diagnosis [facility] [address] [address] 09/01/2024 AUTUMN CLAYTON Morbid obesity E66.0 1 [...] as colonoscopy Will refer to rheumatology at [facility] _update labs and CPE Total time [...] software and direct typing Please excuse inadvertent die stamper or typing errors, or uncorrected word substitutions Although every attempt has been made by the provider to proofread this document, occasional misspellings and typographical errors may still be present Due to the previous pandemic, and the use of personal protective equipment (PPE) This may decrease voice recognition accuracy Inadvertent die stamper errors may occur 09/01/2024 Body mass index [BMI]40.0-44.9, adult (ICD-10 - Z68.41) Acute Concerns/Problem List: 09/01/2024 DCF paperwork was filled out today We have given him a starter pack of Wegovy 0.25 mg Tdap today Flu shot today Scheduled to see cardiology early October as well as gastroenterology next month For stress testing as well as colonoscopy Will refer to rheumatology at [facility] _update labs and CPE Total time [...] software and direct typing Please excuse inadvertent die stamper or typing errors, or uncorrected word substitutions Although every attempt has been made by the provider to proofread this document, occasional misspellings and typographical errors may still be present Due to the previous pandemic, and the use of personal protective equipment (PPE) This may decrease voice recognition accuracy Inadvertent die stamper errors may occur 09/01/2024 Erectile dysfunction, unspecified erectile dysfunction type (ICD-10 - N52.9) Acute Concerns/Problem List: 09/01/2024 DCF paperwork was filled out today We have given him a starter pack of Wegovy 0.25 mg Tdap today Flu shot today Scheduled to see cardiology early October as well as gastroenterology next month For stress testing as well as colonoscopy Will refer to rheumatology at [facility] _update labs and CPE Total time [...] software and direct typing Please excuse inadvertent die stamper or typing errors, or uncorrected word substitutions Although every attempt has been made by the provider to proofread this document, occasional misspellings and typographical errors may still be present Due to the previous pandemic, and the use of personal protective equipment (PPE) This may decrease voice recognition accuracy Inadvertent die stamper errors may occur 09/01/2024 SONJA (obstructive sleep apnea) (ICD-10 - G47.33) Acute Concerns/Problem List: 09/01/2024 DCF paperwork was filled out today We have given him a starter pack of Wegovy 0.25 mg Tdap today Flu shot today Scheduled to see cardiology early October as well as gastroenterology next month For stress testing as well as colonoscopy Will refer to rheumatology at [facility] _update labs and CPE Total time [...] software and direct typing Please excuse inadvertent die stamper or typing errors, or uncorrected word substitutions Although every attempt has been made by the provider to proofread this document, occasional misspellings and typographical errors may still be present Due to the previous pandemic, and the use of personal protective equipment (PPE) This may decrease voice recognition accuracy Inadvertent die stamper errors may occur 09/01/2024 Other chest pain (ICD-10 - R07.89) Acute Concerns/Problem List: 09/01/2024 DCF paperwork was filled out today We have given him a starter pack of Wegovy 0.25 mg Tdap today Flu shot today Scheduled to see cardiology early October as well as gastroenterology next month For stress testing as well as colonoscopy Will refer to rheumatology at [facility] _update labs and CPE Total time [...] software and direct typing Please excuse inadvertent die stamper or typing errors, or uncorrected word substitutions Although every attempt has been made by the provider to proofread this document, occasional misspellings and typographical errors may still be present Due to the previous pandemic, and the use of personal protective equipment (PPE) This may decrease voice recognition accuracy Inadvertent die stamper errors may occur 09/01/2024 Arthralgia of multiple joints (ICD-10 - M25.50) Acute Concerns/Problem List: 09/01/2024 DCF paperwork was filled out today We have given him a starter pack of Wegovy 0.25 mg Tdap today Flu shot today Scheduled to see cardiology early October as well as gastroenterology next month For stress testing as well as colonoscopy Will refer to rheumatology at [facility] _update labs and CPE Total time [...] software and direct typing Please excuse inadvertent die stamper or typing errors, or uncorrected word substitutions Although every attempt has been made by the provider to proofread this document, occasional misspellings and typographical errors may still be present Due to the previous pandemic, and the use of personal protective equipment (PPE) This may decrease voice recognition accuracy Inadvertent die stamper errors may occur 09/01/2024 SERNA (dyspnea on exertion) (ICD-10 - R06.09) Acute Concerns/Problem List: 09/01/2024 DCF paperwork was filled out today We have given him a starter pack of Wegovy 0.25 mg Tdap today Flu shot today Scheduled to see cardiology early October as well as gastroenterology next month For stress testing as well as colonoscopy Will refer to rheumatology at [facility] _update labs and CPE Total time [...] software and direct typing Please excuse inadvertent die stamper or typing errors, or uncorrected word substitutions Although every attempt has been made by the provider to proofread this document, occasional misspellings and typographical errors may still be present Due to the previous pandemic, and the use of personal protective equipment (PPE) This may decrease voice recognition accuracy Inadvertent die stamper errors may occur 09/01/2024 Encounter for immunization (ICD-10 - Z23) Acute Concerns/Problem List: 09/01/2024 DCF paperwork was filled out today We have given him a starter pack of Wegovy 0.25 mg Tdap today Flu shot today Scheduled to see cardiology early October as well as gastroenterology next month For stress testing as well as colonoscopy Will refer to rheumatology at [facility] _update labs and CPE Total time [...] software and direct typing Please excuse inadvertent die stamper or typing errors, or uncorrected word substitutions Although every attempt has been made by the provider to proofread this document, occasional misspellings and typographical errors may still be present Due to the previous pandemic, and the use of personal protective equipment (PPE) This may decrease voice recognition accuracy Inadvertent die stamper errors may occur PLAN OF TREATMENT Medication [...] Referrals Referral Date Details [facility] Progress Notes * TAOMasonAlysaOB: [birth year] (48 yo M)Acc No.[id number]:09/01/2024 Progress Notes Patient:??TAO Gamaliel Provider:??AUTUMN CLAYTON NP :1975?Age:48 Y?Sex:Ma le Date:09/01/2024 Address:[facility], [facility] Subjective: * Chief Complaints: * ?1. 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 Lots of stress in life. ?Denies more instances of the chest pain/pressure/diaphoresis. ?He now has an appointment with gastroenterology for colorectal screening September 21 ?He also has a cardiac stress test nuclear medicine stress test scheduled for October 2023 ? finally with [facility] ?There is a paternal history of CAD with OK ?Still awaiting rheumatology evaluation ?He reports generalized body aches and myalgias and arthralgias ? I have pain everywhere , I feel like a 80-year-old man ?needs sleep study, SONJA/OHS, ?He was contacted by them however he had to reschedule this is still pending* ?Was taking Sidenafil from [facility] for ED. No longer is working. ?Contributes this to weight and stress. 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 ?ETOH- seldom ?Tobacco-denies ?Drugs- denies [...] as colonoscopy Will refer to rheumatology at [facility] _update labs and CPE Total time [...] software and direct typing Please excuse inadvertent die stamper or typing errors, or uncorrected word substitutions Although every attempt has been made by the provider to proofread this document, occasional misspellings and typographical errors may still be present Due to the previous pandemic, and the use of personal protective equipment (PPE) This may decrease voice recognition accuracy Inadvertent die stamper errors may occur. Plan: * Treatment: 2.??Arthralgia of multiple j oints? Referral To:Rheumatology ?Reason:[facility], Dr. Alvarado 3.??Others?? Start Wegovy Solution [...] TSH ?Lab: LIPID PANEL, STANDARD * Procedure Codes:??55272 FLU VAC NO PRSV 4 POWER 3 YRS, 53109 TDAP VACCINE >7 IM * Images: Billing Information: * Visit Code:?? 14484 Office Visit, Est Pt., Level 4. * Procedure Codes:?? 81004 FLU VAC NO PRSV 4 POWER 3 YRS. 74603 TDAP VACCINE >7 IM. 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 Lots of stress in life. Denies more instances of the chest pain/pressure/diaphoresis. 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
--- OUTSIDE RECORDS SUMMARY | 2025-01-13 16:08 | XMS_ITS | Clinical Summary ---
Author Organization [facility] Address [address] [place] [address] Phone Care Team Providers Care Security Solutions Engineer Name Role Phone Magda Rivas MD Primary Care Provider [phone] Allergies No known active allergies Medications bisacodyL [...] Care Team Description 11/20/2024 Telephone Gastroenterology - [place] [address] [facility] 175 [facility] [address] [place] [phone] Amy Watson MD Special Procedure from Last [...] Description 03/25/2025 12:[address] [facility] [address] [place] [phone] Amy Watson MD [address] [address] Health Maintenance Due Date Last Done Comments DTaP,Tdap,and Td Vaccines (1 - Tdap) 1994 Hepatitis B Vaccines (1 of 3 - 19+ 3-dose series) 1994 Cholesterol Screening (Lipid Panel) 11/19/2019 Colorectal Cancer Screening: Colonoscopy 11/19/2019 Depression Screening 11/19/2019 HIV Screening 11/19/2019 Hepatitis C Screening 11/19/2019 Social Influencers of Health Screening 11/19/2019 COVID-19 Vaccine (2023-2 5 season) 2024 Influenza Vaccine (#1) 2024 [...] patient's age to complete this topic Insurance [facility] Care Teams Security Solutions Engineer Relationship Specialty Start Date End Date Magda Rivas MD PCP - General 11/06/23
== END 2025-01-13 14:12 | disposition home or self-care (01) ==
LOC: HO.HPSW 13:28
PROVIDERS: PCP Internal Medicine; Visit Provider Nurse Practitioner Family
DX: G47.33 Obstructive sleep apnea (adult) (pediatric) (principal); G47.34 Idiopathic sleep related nonobstructive alveolar hypoventilation; J45.909 Unspecified asthma, uncomplicated; Z91.09 Other allergy status, other than to drugs and biological substances; E66.01 Morbid (severe) obesity due to excess calories
CPT/HCPCS: 99204

== ENCOUNTER 2025-01-13 14:17 | Outpatient (REF) | payer OTHER, SELFPAY ==
--- OUTSIDE RECORDS SUMMARY | 2025-01-13 17:06 | XMS_ITS | Clinical Summary ---
Author Organization [facility] Address [address] [place] [address] Phone Care Team Providers Care Glass Wool Blanket Machine Feeder Name Role Phone Magda Rivas MD Primary Care Provider [phone] Allergies No known active allergies Medications bisacodyL [...] Care Team Description 11/20/2024 Telephone Gastroenterology - [place] 175 [facility] 175 [facility] [address] [place] [phone] Amy Watson MD Special Procedure from Last [...] Description 03/25/2025 12:00 PM EDT Appointment [facility] [address] [place] [phone] Amy Watson MD [address] [address] Health Maintenance Due Date Last Done Comments [...] patient's age to complete this topic Insurance [facility] Care Teams Glass Wool Blanket Machine Feeder Relationship Specialty Start Date End Date Magda Rivas MD PCP - General 11/06/23
[2025-01-13 18:06] LABS: MANUAL DIFF FLAG NO
[2025-01-13 18:16] LABS: Basophils Percent Auto 0.3 % (0-2); Eosinophils Absolute Auto 0.1 X10*3/uL (0.0-0.4); Eosinophils Percent Auto 1.3 % (0-4); Hematocrit 45.3 % (42.0-52.0); Hemoglobin 15.2 g/dl (14.0-18.0); Imm Gran Abs Auto 0.02 X10*3/uL (0.00-0.03); Imm Gran Pct Auto 0.3 % (0.0-0.4); Lymphocytes Absolute Auto 1.9 X10*3/uL (1.2-4.9); Lymphocytes Percent Auto 27.5 % (20-40); Mean Corpuscular HGB Conc 33.6 g/dl (31.0-36.0); Mean Corpuscular Hemoglobin 27.6 pg (27.0-33.0); Mean Corpuscular Volume 82.2 fL (80.0-98.0); Mean Platelet Volume 10.3 fL (9.4-12.4); Monocytes Absolute Auto 0.5 X10*3/uL (0.1-1.2); Monocytes Percent Auto 6.7 % (2-11); Neutrophils Absolute Auto 4.4 x10*3/uL (2.0-8.3); Neutrophils Percent Auto 63.9 % (45-73); Platelet Count 195 X10*3/uL (160-400); Red Blood Count 5.51 X10*6/uL (4.60-5.80); White Blood Count 6.9 X10*3/uL (4.8-10.8)
[2025-01-23 14:58] LABS: Class Alternaria alternata 0; Class Aspergillus fumigatus 0; Class Bermuda Grass 0; Class Birch 0; Class Cat Dander 0; Class Cladosporium herbarum 0; Class Cockroach 0; Class Common Ragweed 0; Class Cottonwood 0; Class Derm. pterony 0; Class Dermatophagoides farinae 0; Class Dog Dander 0; Class Elm 0; Class Maple Box Elder 0; Class Mountain Cedar 0; Class Mouse Urine Protein 0; Class Mugwort 0; Class Oak 0; Class Penicillium crysogenum 0; Class Rough Pigweed 0; Class Sheep Sorrel 0; Class Sycamore 0; Class Timothy Grass 0; Class Walnut Tree 0; Class White Ash 0; Class White Mulberry 0; D001 IgE D pteronyssinus <0.10 kU/L; D002 - IgE D farinae <0.10 kU/L; E001 - IgE Cat Dander <0.10 kU/L; E005 - IgE Dog Dander <0.10 kU/L; E072-IgE Mouse Urine <0.10 kU/L; G002 IgE Bermuda Grass <0.10 kU/L; G006 - IgE Timothy Grass <0.10 kU/L; I006-IgE Cockroach, German <0.10 kU/L; Immunoglobulin E 68 kU/L (<OR=114); M001 IgE Penicillium chrysogen <0.10 kU/L; M002 - IgE Cladosporium herbar <0.10 kU/L; M003 - IgE Aspergillus fumigat <0.10 kU/L; M006 - IgE Alternaria alternat <0.10 kU/L; T001 IgE Maple/Box Elder <0.10 kU/L; T003 IgE Common Silver Birch <0.10 kU/L; T006 - IgE Cedar, Mountain <0.10 kU/L; T007 - IgE Oak, White <0.10 kU/L; T008 IgE Elm, American <0.10 kU/L; T010 - IgE Walnut <0.10 kU/L; T011 - IgE Maple Leaf Sycamore <0.10 kU/L; T014 - IgE Cottonwood <0.10 kU/L; T015 - IgE Ash, White <0.10 kU/L; T070 - IgE White Mulberry <0.10 kU/L; W001 - IgE Ragweed, Short <0.10 kU/L; W006 - IgE Mugwort <0.10 kU/L; W014 IgE Pigweed, Common <0.10 kU/L; W018 IgE Sheep Sorrel <0.10 kU/L
== END 2025-01-13 14:18 | disposition home or self-care (01) ==
LOC: HO.WFDLDS 14:17
PROVIDERS: Visit Provider Nurse Practitioner Family
DX: Z91.09 Other allergy status, other than to drugs and biological substances (principal)
CPT/HCPCS: 36415; 82785; 85025; 86003